=== PATIENT | male | born 1940 | race Caucasian/White ===

== ENCOUNTER → 2017-03-06 | Outpatient (CLI) | payer OTHER, MEDICARE ==
[~2017-03-06] MED LIST: ASCA500 PO; CLC100 PO; OXYC-57 PO; PRLSR20 PO; SIMV20TA2 PO; SUPPLEMENT PO
[2017-03-06 10:15] LABS: BASO % 0.3 %; BASO ABS # 0.03 K/uL (0-0.2); COMPLETE YES; EOS % 1.4 %; HEMATOCRIT 36.5 % (42-52); IG% 0.1 %; LYMPH % 17.3 %; LYMPH ABS # 1.49 K/uL (1.2-3.4); MEAN CELL VOLUME 95.1 fL (80-100); MEAN CORPUSCULAR HEMOGLOBIN 31.3 pg (25-34); MEAN CORPUSCULAR HGB CONC 32.9 g/dl (32-36); MEAN PLATELET VOLUME 9.3 fL (7.4-10.4); MONO % 10.3 %; NEUT % 70.6 %; PLATELET COUNT 298 K/uL (130-400); RED BLOOD COUNT 3.84 M/uL (4.7-6.1); WHITE BLOOD COUNT 8.61 K/uL (4.8-10.8)
[2017-03-06 10:39] LABS: ESTIMATED AVERAGE GLUCOSE 120 mg/dl; HA1C FLAG Normal (Normal)
[2017-03-06 10:43] LABS: ALT/SGPT 22 U/L (12-78); AST/SGOT 15 U/L (15-37); BLOOD UREA NITROGEN 17 mg/dl (7-18); BUN/CREATININE RATIO 17.5 (10-20); CALCIUM 8.8 mg/dl (8.5-10.1); CARBON DIOXIDE 31 mmol/L (21-32); CHLORIDE 109 mmol/L (98-107); CREATININE 0.97 mg/dl (0.60-1.40); GLUCOSE 111 mg/dl (70-99); POTASSIUM 4.3 mmol/L (3.5-5.1); SODIUM 142 mmol/L (136-145)
[2017-03-06 10:45] LABS: ALKALINE PHOSPHATASE 56 U/L (45-117); CHOLESTEROL 167 mg/dl (0-200); CHOLESTEROL/HDL RATIO 4.4; HDL CHOLESTEROL 38 mg/dl; LDL CHOLESTEROL CALCULATED 96 mg/dl; TRIGLYCERIDES 166 mg/dl (0-150); VERY LOW DENSITY LIPOPROT CALC 33 mg/dl
== END | disposition home or self-care (01) ==
LOC: C.LAB 09:30
PROVIDERS: ATTEND Internal Medicine Geriatric Medicine
DX: E78.5 Hyperlipidemia, unspecified (principal); R73.9 Hyperglycemia, unspecified; D64.9 Anemia, unspecified

== ENCOUNTER → 2017-06-11 | Outpatient (CLI) | payer OTHER, MEDICARE | END | disposition home or self-care (01) | LOC: C.LAB 10:45 | PROVIDERS: ATTEND Urology | DX: N40.1 Benign prostatic hyperplasia with lower urinary tract symptoms (principal); C67.9 Malignant neoplasm of bladder, unspecified ==

== ENCOUNTER 2025-02-17 14:42 | Inpatient (IN) ==
--- NOTE | 2025-02-17 15:06 | Emergency Department Note ---
Impression & Plan Witnessed seizure-like activity, Lung mass, Syncope ED Provider Note NAME: MITCHELL SIEGEL AGE: 84 SEX: M : 1940 ARRIVES VIA: Ambulance INFORMANT: Patient ED PROVIDER(S): Wilton Marcum MD CHIEF COMPLAINT: Witnessed seizure-like episode, referred. PLAN: Disposition: Admit MEDICAL DECISION MAKING: The patient is a 84-year-old gentleman with a past medical history of hypertension, hyperlipidemia, BPH, former smoking history who presents to the emergency department via EMS and then accompanied by family referred by his pulmonology office after having episode of seizure-like activity/syncope prior to arrival. The patient was being seen in the pulmonary clinic for further assessment of a lung mass seen on x-ray imaging. Patient recalls that he stood up from a chair to go have additional testing performed in felt extremely nauseated and lightheaded and then has no additional recollection. Patient did have repeated vital signs performed and the patient was relatively normotensive without tachycardia however he had regained consciousness at the time of these measurements. The patient had apparently had no state of confusion or postictal period following the event. Patient reports continued nausea at this time but denies headache, fevers, chills, cough congestion, chest pain, shortness of breath. On evaluation the patient is fatigued appearing but no distress, afebrile stable vital signs. He appears clinically dry. He exhibits no focal neurologic deficits. EKG without overt acute ischemia. CXR demonstrates 6.7 cm previously identified cavitary mass in the right lower lobe better characterized on CT imaging of the chest. WBC within normal limits without neutrophilia or left shift. H/H approximate to prior range of values. Platelets within normal limits. Chemistry without metabolic acidosis. BUN/creatinine 22, consistent with the patient's clinically dry appearance. LFTs unremarkable. CPK within normal limits. High-sensitivity troponin 4.5, within normal limits. Lipase is normal. Procalcitonin is undetectable. TSH within normal limits. CTA of the chest was negative for PE. Lung mass further characterized as solid necrotizing mass in the right lower lobe favoring squamous cell carcinoma. Infectious or inflammatory process possible but considered less likely. CT of the head, CTA of the head and neck and CT of the pelvis negative for acute abnormalities. Patient did report feeling improved following IV hydration, IV famotidine, Zofran and Phenergan. Findings reviewed with the patient and family at the bedside. They did agree with plan for admission for further management. Case was discussed with MILENA Alba hospitalist, who will evaluate the patient for admission. Further management per admitting team including Keppra and MRI imaging. Triage Nursing notes reviewed and agree them. Prior/external medical records reviewed Vital Signs: reviewed Differential diagnosis: Epilepsy, infection, hypoglycemia, electrolyte abnormalities, cardiac sources, intracerebral event, trauma, toxicologic, neurologic, syncope, as well as other pathologies. ER treatment provided: See below. Diagnostics interpreted by me: ECG: Sinus bradycardia, 50 bpm, no ectopy, no overt ST elevation or depression, QTc 451, QRS 90. Cardiac Monitoring: An order for continuous cardiac monitoring was placed and demonstrated sinus bradycardia, 50 bpm, no ectopy. Laboratory studies: See below Imaging studies: See below Consultation(s): Case was discussed with MILENA Alba hospitalist, who will evaluate the patient for admission. HPI: Per MDM. ROS: See above HPI for pertinent positives & negatives. A total of 10 systems reviewed and were otherwise negative. VITALS:See Below PHYSICAL EXAMINATION: GENERAL: Awake, alert, fatigued-appearing, in no distress HENT: Normocephalic, atraumatic. Oropharynx with dry mucous membranes and otherwise unremarkable. EYES: Normal conjunctiva. Sclera non-icteric. EOMI. No nystamgus. PEARRL. NECK: Supple. No nuchal rigidity. FROM. No JVD. RESPIRATORY: Clear to auscultation. CARDIAC: Regular rate, normal rhythm. Extremities warm and well perfused. Pulses equal. ABDOMEN: Soft, non-distended. No tenderness to palpation. No rebound or guarding. No masses. MUSCULOSKELETAL: Chest examination reveals no tenderness. The back is symmetrical on inspection without obvious abnormality. There is no CVA tenderness to palpation. No joint edema. LOWER EXTREMITIES: Calves are equal size bilaterally and non-tender. No edema. No discoloration. NEURO: Cranial nerves II-XII grossly intact. 5/5 strength and SILT x 4 extremities. SKIN: No rash or jaundice noted. Wilton Marcum MD Past Med/Surg History Problem List (Updated 02/17/25 @ 23:04 by Wilton Marcum MD) Syncope (Acute) Witnessed seizure-like activity (Acute) Seizure New onset seizure Ex-smoker Lung mass (Acute) Pre-op testing Post-nasal drip Hemoptysis, unspecified Rhinitis JAYLAN (generalized anxiety disorder) Normocytic anemia Mild cognitive disorder Elevated hemoglobin A1c Hypertension (Chronic) Dyslipidemia (Chronic) Enlarged prostate with lower urinary tract symptoms (LUTS) (Acute) Gastroesophageal reflux disease (Chronic) Chronic osteoarthritis (Chronic) Medical History Melanoma in situ Followed by [facility] Tubular adenoma of colon 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 No Urology f/u at this time. Family history of melanoma Decreased hearing has hearing aids, does not wear them Surgical History H/O colonoscopy 09/2022 Repeat 3 yrs History of hernia surgery History of bladder surgery (~1985) Family History Unknown Skin cancer Heart disease Diabetes Sister Breast cancer Lung cancer Denies family history of Ovarian cancer Prostate cancer Myocardial infarction Colorectal cancer Stroke Social History Smoking Status: Former smoker Tobacco Type: Cigarettes Age Started Using Tobacco: 16; Age Quit Using Tobacco: 81; Cigarettes Per Day: 1-2, but "not every day"; Second Hand Exposure: No (years ago); Do You Dip or Chew Tobacco: No; Hx Alcohol Use: No Hx Substance Use: No Preferred Language: Sami Communication Ability: Effective Visual Impairment: Limited Hearing Ability: Hard of Hearing Brass Buffer Required: No Beliefs That Will Affect Care: None marital status: Current Living Situation: Spouse current occupational status: retired 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 How many Children do You have: 4 Feels Safe at Home: Yes Childhood Exposure to Second-Hand Smoke: Yes (thinks father did ) Diet: regular caffeine: Yes (coffee) during the past year weight has: remained stable Dental Care, Regularly: No Physical Activity Frequency: Does not Exercise Seatbelt Use: always Sunscreen Use: No Assistive Devices: Denture - Upper, Denture - Lower and Glasses Allergies Allergies Allergy/AdvReac Type Severity Reaction Status Date / Time amoxicillin [From Augmentin] AdvReac severe Verified 02/17/25 18:13 nausea clavulanic acid AdvReac severe Verified 02/17/25 18:13 [From Augmentin] nausea Home Meds Home Medications Medication Instructions Recorded Confirmed vit C 250 mg-vit E 90 mg-zinc 40 1 tab PO BID 03/22/19 02/17/25 mg-copper 1 [id number]-moskss capsule (PreserVision AREDS-2) acetaminophen 500 mg tablet 500 mg PO Q6H PRN Pain 08/24/22 02/17/25 lactobacillus combination no.4 15 15,000 mmu cells PO DAILY 02/17/25 02/17/25 billion cell capsule omeprazole 20 mg capsule,delayed 40 mg PO DAILY 02/17/25 02/17/25 release Previous Rx's Medication Instructions Recorded [id number] acid 200 1 tab PO BID #30 tabs 09/20/23 mcg-lycopene 5 mg-boron 250 mcg tablet (Bladder 2.2) amlodipine 10 mg tablet 10 mg PO QAM #90 tabs 03/17/24 atorvastatin 10 mg tablet 10 mg PO HS #90 tabs 03/17/24 atenolol 25 mg tablet 25 mg PO DAILY #30 tabs 01/15/25 ipratropium bromide 42 mcg (0.06 2 spray intranasal TID #15 mL 01/22/25 %) nasal spray Results & Data (ED) Vital Signs Vital Signs - 24 hr 02/17/25 14:57 02/17/25 15:36 02/17/25 16:12 Temperature 36.4 C L Temperature Source Axillary Pulse Rate 56 L 60 69 Pulse Rate [Left Apical] Pulse Rate from SpO2 Sensor 55 L 66 Respiratory Rate 18 15 18 Respiratory Effort / Characteristics Non-Labored Spontaneous Respiratory Depth Normal Respiratory Pattern Regular Blood Pressure 129/66 125/59 L 122/57 L Blood Pressure [Right Arm] Blood Pressure Mean 87 81 78 Blood Pressure Mean [Right Arm] Blood Pressure Position Lying Blood Pressure Position [Right Arm] Pulse Oximetry 96 95 100 Oxygen Delivery Method Room Air Sepsis Recent Fever Within 48 Hours No Sepsis New/Unexplained Change in Mental Status N/A Sepsis Action Taken by Nursing No Action Required 02/17/25 16:14 02/17/25 17:00 02/17/25 17:01 Temperature Temperature Source Pulse Rate 59 L Pulse Rate [Left Apical] 63 Pulse Rate from SpO2 Sensor 57 L Respiratory Rate 17 15 Respiratory Effort / Characteristics Non-Labored Spontaneous Respiratory Depth Normal Respiratory Pattern Regular Blood Pressure 124/55 L Blood Pressure [Right Arm] 122/57 L 124/55 L Blood Pressure Mean 78 Blood Pressure Mean [Right Arm] 78 78 Blood Pressure Position Blood Pressure Position [Right Arm] Lying Pulse Oximetry 98 98 Oxygen Delivery Method Room Air Sepsis Recent Fever Within 48 Hours Sepsis New/Unexplained Change in Mental Status Sepsis Action Taken by Nursing 02/17/25 17:33 02/17/25 17:47 02/17/25 18:03 Temperature Temperature Source Pulse Rate 52 L 53 L 50 L Pulse Rate [Left Apical] Pulse Rate from SpO2 Sensor 51 L 50 L Respiratory Rate 15 14 Respiratory Effort / Characteristics Respiratory Depth Respiratory Pattern Blood Pressure 118/58 L 120/55 L Blood Pressure [Right Arm] Blood Pressure Mean 78 76 Blood Pressure Mean [Right Arm] Blood Pressure Position Blood Pressure Position [Right Arm] Pulse Oximetry 98 98 Oxygen Delivery Method Sepsis Recent Fever Within 48 Hours Sepsis New/Unexplained Change in Mental Status Sepsis Action Taken by Nursing Laboratory Data Attestation: I reviewed the patient's lab results. 02/17/25 14:53 02/17/25 14:53 Lab Results 02/17/25 Range/Units 14:53 WBC 9.94 (4.8-10.8) K/ul RBC 3.16 L (4.70-6.10) M/uL Hgb 10.1 L (14.0-18.0) g/dl Hct 30.2 L (42.0-52.0) % MCV 95.6 (80.0-100.0) fL MCH 32.0 (25.0-34.0) pg MCHC 33.4 (32.0-36.0) g/dL RDW Std Deviation 46.3 (36.4-46.3) fL RDW Coeff of Sidra 13.3 (11.5-14.5) % Plt Count 284 (130-400) K/uL MPV 9.4 (9.4-12.4) fL Immature Gran % (Auto) 0.4 % Neut % (Auto) 64.6 % Lymph % (Auto) 23.4 % [place] % (Auto) 9.6 % Eos % (Auto) 1.4 % Baso % (Auto) 0.6 % Neut # (Auto) 6.42 (1.40-6.50) K/uL Lymph # (Auto) 2.33 (1.20-3.40) K/uL [place] # (Auto) 0.95 H (0.11-0.59) K/uL Eos # (Auto) 0.14 (0.00-0.50) K/uL Baso # (Auto) 0.06 (0.00-0.20) K/uL Immature Gran # (Auto) 0.04 (0.01-0.20) K/uL PT 10.5 (9.0-12.0) Seconds INR 1.0 (0.9-1.1) Sodium 139 (136-145) mmol/L Potassium 3.9 (3.5-5.1) mmol/L Chloride 109 H (98-107) mmol/L Carbon Dioxide 24 (21-32) mmol/L Anion Gap 6 (3-11) BUN 23 (6-23) mg/dl Creatinine 1.03 (0.6-1.4) mg/dl Est Cr Clr Drug Dosing 51.7 ml/min eGFR 71.63 BUN/Creatinine Ratio 22.3 H (10-20) Glucose 146 H (70-99(Fasting)) mg/dl Calcium 8.7 (8.6-10.3) mg/dl Magnesium 2.1 (1.7-2.4) mg/dl Total Bilirubin 0.6 (0.2-1.0) mg/dl AST 23 (13-39) U/L ALT 13 (7-52) U/L Alkaline Phosphatase 45 (34-104) U/L Total Creatine Kinase 46 (30-223) U/L Troponin I High Sens 4.5 (0-20) pg/ml Total Protein 6.8 (6.0-8.3) gm/dl Albumin 4.0 (3.4-5.0) gm/dl Globulin 2.8 (2.5-4.0) gm/dl Albumin/Globulin Ratio 1.4 (0.9-2) Lipase 19 (11-82) U/L Procalcitonin < 0.02 (0-0.5) ng/ml TSH 1.610 (0.300-4.500) uIu/ml Administered Medications Atorvastatin Calcium (Atorvastatin 10 Mg Tab) 10 mg PO HS MELISA Stop: 03/19/25 21:36 Last Admin: 02/17/25 22:42 Dose: 10 mg Documented By: TUNDE Ipratropium [place] (Ipratropium [place] Nasal [place] 0.06% 15ml) 2 sprays SHAHID TID MELISA Stop: 03/19/25 21:36 Last Admin: 02/17/25 22:43 Dose: 2 sprays Documented By: TUNDE Levetiracetam (Levetiracetam 500 Mg/5 Ml Vial) 500 mg IV Q12H MELISA Stop: 03/19/25 17:44 Last Admin: 02/17/25 18:40 Dose: 500 mg Documented By: SEDA Multivitamins/Minerals (Cerovite Adv Formula Tab) 1 tab PO BID MELISA Stop: 03/19/25 21:36 Last Admin: 02/17/25 22:42 Dose: 1 tab Documented By: TUNDE Discontinued Medications Gadobutrol (Gadobutrol 65ml Vial) 7.5 ml IV ONCE ONE Stop: 02/17/25 19:16 Last Admin: 02/17/25 19:15 Dose: 7.5 ml Documented By: YAMILE Sodium Chloride (Nss) 500 mls @ 999 mls/hr IV .Q31M ONE Stop: 02/17/25 15:23 Last Infusion: 02/17/25 16:59 Dose: Infused Documented By: Admin: 02/17/25 15:23 Dose: 999 mls/hr Documented By: SEDA Famotidine (Pepcid 20mg Iv Push) 20 mg in 5 mls @ 2.5 mls/min IV NOW STA Stop: 02/17/25 15:02 Last Admin: 02/17/25 15:23 Dose: 2.5 mls/min Documented By: SEDA Sodium Chloride (Nss) 500 mls @ 999 mls/hr IV .Q31M ONE Stop: 02/17/25 15:31 Last Infusion: 02/17/25 16:59 Dose: Infused Documented By: Admin: 02/17/25 15:23 Dose: 999 mls/hr Documented By: SEDA Promethazine HCl (Phenergan) 12.5 mg in 50.5 mls @ 202 mls/hr IV NOW STA Stop: 02/17/25 16:35 Last Infusion: 02/17/25 16:59 Dose: Infused Documented By: Admin: 02/17/25 16:38 Dose: 202 mls/hr Documented By: SEDA Ioversol (Optiray 320 125ml) 115 ml IV ONCE ONE Stop: 02/17/25 16:00 Last Admin: 02/17/25 15:59 Dose: 115 ml Documented By: AKILAH Ondansetron HCl (Ondansetron Inj 2 Mg/Ml 2 Ml Vial) 4 mg IV NOW STA Stop: 02/17/25 15:02 Last Admin: 02/17/25 15:23 Dose: 4 mg Documented By: SEDA Imaging Data Radiologist's Impression: Chest CTA 02/17/25 14:49 EXAMINATION: CT angio chest PE CLINICAL HISTORY: Lung mass, nausea, syncope PRIORS: None TECHNIQUE: Contiguous axial images were obtained through the chest with the use of intravenous contrast. Sagittal and coronal reformations are supplied. FINDINGS: Lung volumes are diminished. A mass is present in the right lower lobe, subpleural, approximately round in shape with well-defined borders. This measures 5.7 cm x 5.2 cm with surrounding groundglass attenuation. The contents of the mass are solid with heterogeneous appearance and scattered areas of gas. Mild diffuse increased reticular markings in the subpleural regions. Moderate centrilobular pulmonary emphysema. No additional mass. No airspace consolidation. No mediastinal adenopathy. Mildly prominent nonpathologically enlarged right hilar lymph nodes present measuring 0.7 cm in short axis. No axillary or subpectoral adenopathy. The pulmonary arteries are well opacified. No central or peripheral pulmonary embolism. No pleural or pericardial effusion. Heart size mildly enlarged. Moderate atherosclerotic disease identified. In bone windows, moderate degenerative change throughout the thoracic spine, allowing for PE technique. No acute fracture or suspicious osseous abnormality. IMPRESSION: Solid necrotizing mass in the right lower lobe measuring up to 5.7 cm. The presence of necrosis favors squamous cell carcinoma. An infectious or inflammatory process is possible although considered less likely. Electronically signed by Lynn De La Rosa 02-17-2025 4:37 PM Chest X-Ray 02/17/25 14:49 Clinical History: Chest pain Technique: 2 frontal views of the chest were obtained Comparison is made to the chest CT obtained today Findings: There is an approximately 6.7 cm cavitary mass in the right lower lobe with surrounding alveolar infiltrate. The heart size is within normal limits. No pleural effusion or pneumothorax is seen. No fracture is noted. No foreign body is seen Impression: 6.7 cm cavitary mass or lung abscess in the right lower lobe, better evaluated by today's CT examination ACT 112: Positive. There are findings on this exam that require communication between the performing entity and the patient following Patient Test Result Information Act ([place] ACT 112) guidelines. Electronically signed by Wesley Reina 02-17-2025 5:[address] 02/17/25 14:49 EXAMINATION: Head CT without CLINICAL HISTORY: Syncope versus seizure lung mass PRIORS: None TECHNIQUE: Contiguous axial images were obtained through the head without the use of intravenous contrast. Sagittal and coronal reformations are supplied. FINDINGS: Mild diffuse parenchymal volume loss noted. Periventricular lucency present bilaterally in the deep white matter. Thompson-white differentiation is preserved. No edema or midline shift. No intra-axial or extra-axial hemorrhage. Ventricles are normal in size and configuration. Brainstem and cerebellum have a normal appearance. Calvarium unremarkable. Paranasal sinuses and mastoid air cells are well-pneumatized. Globes are intact. No retrobulbar abnormality. IMPRESSION: No CT evidence of an acute intracranial abnormality. Electronically signed by Lynn De La Rosa 02-17-2025 4:28 PM Head CTA 02/17/25 14:49 EXAM: CTA head with CLINICAL HISTORY: Syncope versus seizure, lung mass TECHNIQUE: Contiguous CTA axial images were obtained through the head after the administration of intravenous contrast. Sagittal and coronal reformations are supplied. PRIORS: Noncontrast head today FINDINGS: Dental amalgam creates beam hardening artifact. This diminishes image quality. The vertebral arteries form the basilar artery at the skull base. [place] of [place] is patent. No thrombus or hemodynamically significant stenosis. No aneurysmal dilatation or bermudez aneurysm. No enhancing mass in the brain. IMPRESSION: No CTA evidence of an acute vascular abnormality. Electronically signed by Lynn De La Rosa 02-17-2025 4:28 PM Neck CTA 02/17/25 14:49 EXAM: CT angio neck with con CLINICAL HISTORY: Syncope versus seizure, lung mass TECHNIQUE: Contiguous CTA axial images were obtained through the neck with the administration of intravenous contrast. Sagittal and coronal reformations are supplied. MIPS are supplied. COMPARISON: None FINDINGS: The left-sided aortic arch noted with moderate atherosclerotic disease. Appropriate takeoff of the 3 great vessels noted with no hemodynamically significant stenosis. The bilateral common, internal and external iliac arteries are patent with no thrombus, hemodynamically significant stenosis or evidence of dissection. The bilateral internal carotid arteries enter at the petrous portion of the skull base normally. Very mild atherosclerotic plaque in the left carotid artery bulb. The vertebral arteries are well opacified, both contributing to the basilar artery at the brainstem. No hemodynamically significant stenosis. No enhancing mass visualized in the lower brain or neck. Electronically signed by Lynn De La Rosa 02-17-2025 4:31 PM Abdomen/Pelvis CT 02/17/25 15:02 EXAMINATION: Abdomen and pelvis CT with CLINICAL HISTORY: Lung mass, nausea, syncope PRIORS: None TECHNIQUE: Contiguous axial images were obtained through the abdomen and pelvis with the use of intravenous contrast. Sagittal and coronal reformations are supplied. FINDINGS: Chest CT is dictated under separate heading. Necrotic mass present in the right lung lower lobe. The liver is mildly enlarged measuring 18.3 cm with homogeneous enhancement. Focal hypoattenuation measuring 2 mm present in the right lobe. The portal vein, gallbladder, pancreas, spleen, under distended stomach, adrenals, aorta and IVC are morphologically unremarkable. Advanced atherosclerotic disease of the abdominal aorta noted. The infrarenal aorta is fusiform or tortuous in shape. Kidneys enhance symmetrically. No adrenal mass. No adenopathy, extraluminal gas or free fluid. Moderate to severe diverticulosis of the descending and sigmoid colon without pericolonic inflammatory change. Large amount of formed stool present in the colon. Prostate not enlarged. Urinary bladder distended and morphologically unremarkable. Moderate inguinal hernias present containing fat. Appendix is normal. No dilated loops of bowel or bowel wall thickening. In bone windows, moderate osseous demineralization noted. Moderate to advanced degenerative change throughout the lumbar spine. No acute or suspicious osseous abnormality. IMPRESSION: 1. No CT evidence of metastatic disease in the abdomen or pelvis. No adrenal mass. 2. No acute abdominal or pelvic abnormality. 3. Moderate to severe diverticulosis with no CT features of diverticulitis. 4. Hepatomegaly Electronically signed by Lynn De La Rosa 02-17-2025 4:41 PM Discharge Plan Visit Data Chief Complaint: Seizure Stated Complaint: SEIZURE ED Provider: Wilton Marcum Discharge Problem: Witnessed seizure-like activity, Lung mass, Syncope Patient Disposition: Admitted As Inpatient Condition: Serious Discharge Instructions Interventions: ED Discharge Assessment Last Done: 02/17/25 21:38 Discharge Problem: Syncope Qualifiers: Syncope type: unspecified Qualified Code(s): R55 - Syncope and collapse
[2025-02-17 15:15] LABS: Hematocrit (blood only) 30.2 % (42.0-52.0); Hemoglobin 10.1 g/dl (14.0-18.0); Immature Granulocytes # (auto) 0.04 K/uL (0.01-0.20); Immature Granulocytes % (auto) 0.4 %; Mean Corpuscular Hemoglobin 32.0 pg (25.0-34.0); Mean Corpuscular Volume 95.6 fL (80.0-100.0); Platelet Count 284 K/uL (130-400); RDW Standard Deviation 46.3 fL (36.4-46.3); Red Blood Count 3.16 M/uL (4.70-6.10); White Blood Count 9.94 K/ul (4.8-10.8)
[2025-02-17] MEDS: SODIUM CHLORIDE 0.9% 500 ML IV ONE ×2 (15:23)
[2025-02-17] MEDS: FAMOTIDINE 20MG IV PUSH 20 MG/5 ML SYR IV STA (15:23)
[2025-02-17] MEDS: ONDANSETRON INJ 2 MG/ML 2 ML VIAL IV STA (15:23)
[2025-02-17 15:31] LABS: Alanine Aminotransferase 13.0 U/L (7-52); Albumin Globulin Ratio 1.4 (0.9-2); Alkaline Phosphatase 45.0 U/L (34-104); Anion Gap 6.0 (3-11); Bilirubin,Total 0.6 mg/dl (0.2-1.0); Blood Urea Nitrogen 23.0 mg/dl (6-23); Calcium 8.7 mg/dl (8.6-10.3); Carbon Dioxide 24.0 mmol/L (21-32); Chloride 109.0 mmol/L (98-107); Creatine Kinase 46.0 U/L (30-223); Creatinine Clr Calc Pharmacy 51.7 ml/min; Globulin 2.8 gm/dl (2.5-4.0); Glucose 146.0 mg/dl (70-99(Fasting)); Lipase 19.0 U/L (11-82); Magnesium 2.1 mg/dl (1.7-2.4); Potassium 3.9 mmol/L (3.5-5.1); Sodium 139.0 mmol/L (136-145); Total Protein 6.8 gm/dl (6.0-8.3)
[2025-02-17 15:41] LABS: INR 1.0 (0.9-1.1); Prothrombin Time 10.5 Seconds (9.0-12.0)
[2025-02-17 15:46] LABS: Thyroid Stimulating Hormone 1.61 uIu/ml (0.300-4.500)
[2025-02-17] MEDS: OPTIRAY 320 125ml IV ONE (15:59)
--- NOTE | 2025-02-17 16:29 | CT Scan Report ---
EXAM: CTA head with CLINICAL HISTORY: Syncope versus seizure, lung mass TECHNIQUE: Contiguous CTA axial images were obtained through the head after the administration of intravenous contrast. Sagittal and coronal reformations are supplied. PRIORS: Noncontrast head today FINDINGS: Dental amalgam creates beam hardening artifact. This diminishes image quality. The vertebral arteries form the basilar artery at the skull base. [place] of [place] is patent. No thrombus or hemodynamically significant stenosis. No aneurysmal dilatation or bermudez aneurysm. No enhancing mass in the brain. IMPRESSION: No CTA evidence of an acute vascular abnormality. Electronically signed by Lynn De La Rosa 02-17-2025 4:28 PM
--- NOTE | 2025-02-17 16:29 | CT Scan Report ---
EXAMINATION: Head CT without CLINICAL HISTORY: Syncope versus seizure lung mass PRIORS: None TECHNIQUE: Contiguous axial images were obtained through the head without the use of intravenous contrast. Sagittal and coronal reformations are supplied. FINDINGS: Mild diffuse parenchymal volume loss noted. Periventricular lucency present bilaterally in the deep white matter. Thompson-white differentiation is preserved. No edema or midline shift. No intra-axial or extra-axial hemorrhage. Ventricles are normal in size and configuration. Brainstem and cerebellum have a normal appearance. Calvarium unremarkable. Paranasal sinuses and mastoid air cells are well-pneumatized. Globes are intact. No retrobulbar abnormality. IMPRESSION: No CT evidence of an acute intracranial abnormality. Electronically signed by Lynn De La Rosa 02-17-2025 4:28 PM
--- NOTE | 2025-02-17 16:33 | CT Scan Report ---
EXAM: CT angio neck with con CLINICAL HISTORY: Syncope versus seizure, lung mass TECHNIQUE: Contiguous CTA axial images were obtained through the neck with the administration of intravenous contrast. Sagittal and coronal reformations are supplied. MIPS are supplied. COMPARISON: None FINDINGS: The left-sided aortic arch noted with moderate atherosclerotic disease. Appropriate takeoff of the 3 great vessels noted with no hemodynamically significant stenosis. The bilateral common, internal and external iliac arteries are patent with no thrombus, hemodynamically significant stenosis or evidence of dissection. The bilateral internal carotid arteries enter at the petrous portion of the skull base normally. Very mild atherosclerotic plaque in the left carotid artery bulb. The vertebral arteries are well opacified, both contributing to the basilar artery at the brainstem. No hemodynamically significant stenosis. No enhancing mass visualized in the lower brain or neck. Electronically signed by Lynn De La Rosa 02-17-2025 4:31 PM
[2025-02-17] MEDS: PROMETHAZINE 12.5 MG/50.5 ML BAG IV STA (16:38)
--- NOTE | 2025-02-17 16:38 | CT Scan Report ---
EXAMINATION: CT angio chest PE CLINICAL HISTORY: Lung mass, nausea, syncope PRIORS: None TECHNIQUE: Contiguous axial images were obtained through the chest with the use of intravenous contrast. Sagittal and coronal reformations are supplied. FINDINGS: Lung volumes are diminished. A mass is present in the right lower lobe, subpleural, approximately round in shape with well-defined borders. This measures 5.7 cm x 5.2 cm with surrounding groundglass attenuation. The contents of the mass are solid with heterogeneous appearance and scattered areas of gas. Mild diffuse increased reticular markings in the subpleural regions. Moderate centrilobular pulmonary emphysema. No additional mass. No airspace consolidation. No mediastinal adenopathy. Mildly prominent nonpathologically enlarged right hilar lymph nodes present measuring 0.7 cm in short axis. No axillary or subpectoral adenopathy. The pulmonary arteries are well opacified. No central or peripheral pulmonary embolism. No pleural or pericardial effusion. Heart size mildly enlarged. Moderate atherosclerotic disease identified. In bone windows, moderate degenerative change throughout the thoracic spine, allowing for PE technique. No acute fracture or suspicious osseous abnormality. IMPRESSION: Solid necrotizing mass in the right lower lobe measuring up to 5.7 cm. The presence of necrosis favors squamous cell carcinoma. An infectious or inflammatory process is possible although considered less likely. Electronically signed by Lynn De La Rosa 02-17-2025 4:37 PM
--- NOTE | 2025-02-17 16:42 | CT Scan Report ---
EXAMINATION: Abdomen and pelvis CT with CLINICAL HISTORY: Lung mass, nausea, syncope PRIORS: None TECHNIQUE: Contiguous axial images were obtained through the abdomen and pelvis with the use of intravenous contrast. Sagittal and coronal reformations are supplied. FINDINGS: Chest CT is dictated under separate heading. Necrotic mass present in the right lung lower lobe. The liver is mildly enlarged measuring 18.3 cm with homogeneous enhancement. Focal hypoattenuation measuring 2 mm present in the right lobe. The portal vein, gallbladder, pancreas, spleen, under distended stomach, adrenals, aorta and IVC are morphologically unremarkable. Advanced atherosclerotic disease of the abdominal aorta noted. The infrarenal aorta is fusiform or tortuous in shape. Kidneys enhance symmetrically. No adrenal mass. No adenopathy, extraluminal gas or free fluid. Moderate to severe diverticulosis of the descending and sigmoid colon without pericolonic inflammatory change. Large amount of formed stool present in the colon. Prostate not enlarged. Urinary bladder distended and morphologically unremarkable. Moderate inguinal hernias present containing fat. Appendix is normal. No dilated loops of bowel or bowel wall thickening. In bone windows, moderate osseous demineralization noted. Moderate to advanced degenerative change throughout the lumbar spine. No acute or suspicious osseous abnormality. IMPRESSION: 1. No CT evidence of metastatic disease in the abdomen or pelvis. No adrenal mass. 2. No acute abdominal or pelvic abnormality. 3. Moderate to severe diverticulosis with no CT features of diverticulitis. 4. Hepatomegaly Electronically signed by Lynn De La Rosa 02-17-2025 4:41 PM
--- NOTE | 2025-02-17 17:43 | XRay Report ---
Clinical History: Chest pain Technique: 2 frontal views of the chest were obtained Comparison is made to the chest CT obtained today Findings: There is an approximately 6.7 cm cavitary mass in the right lower lobe with surrounding alveolar infiltrate. The heart size is within normal limits. No pleural effusion or pneumothorax is seen. No fracture is noted. No foreign body is seen Impression: 6.7 cm cavitary mass or lung abscess in the right lower lobe, better evaluated by today's CT examination ACT 112: Positive. There are findings on this exam that require communication between the performing entity and the patient following Patient Test Result Information Act ([place] ACT 112) guidelines. Electronically signed by Wesley Reina 02-17-2025 5:42 PM
[2025-02-17] MEDS ORDERED: ONDANSETRON INJ 2 MG/ML 2 ML VIAL IV PRN (18:23)
--- NOTE | 2025-02-17 18:40 | History & Physical Report ---
Date of Service February 17, 2025 Assessment & Plan (1) Seizure: Plan Linus Phillips is a 84 yo male with PMH of smoking, newly found lung mass, bladder cancer (2009), GERD, hypertension. he's been having runny nose, sinus pressure and went to ENT. however, there was concern he having hemoptysis and was referred to pulmonary, Dr. Kevin Moore. CXR show RLL lung mass Dr. Moore was plan for bronchoscopy +/- EUBS to investigate the mass, and order coagulation studies however, at 2pm on sunday (02/17), patient has witness seizure episode (twitching, bladder incontinence, pacing around the hallway) and brought here for evaluation his CTA chest found necrotizing lung mass in the RLL, CTA head and neck negative for large vessel thrombosis he's started on keppra IV and need brain MRI w/wo contrast to rule out brain metastasis. 1. seizure episode 2. newly found lung mass in RLL (5.6cm) 3. hx of bladder cancer 4. amoxicllin allergy 5. hypertension 6. GERD 7. HSTF 1. seizure episode witness on 02/17 at lung doctor office keppra IV BID, brain MRI w/wo contrast to r/o metastasis 2. newly found lung mass f/u on PT/aPTT and INR level. pulmonary was plan for bronchoscopy +/- EUBS for evaluation monitor for hypothermia and high WBC to r/o superimpose PNA. 3. hx of bladder cancer, s/p treatment in 2009 4. hypertension-atenolol 25mg daily and amlodpine 10mg daily 5. HLD, he's on lipitor 10mg qHS 6. eye condition, he's on preservison AREDS-2) 1 tab BID 7. GERD- omeprazole 20mg daily DVT prophylaxis, heparin starting tomorrow afternoon History of Present Illness Chief Complaint: seizure episode at 2pm (pulmonary office) newly found lung mass hx of bladder cancer Primary Care Provider: Brady Romero, Mr. Linus Phillips is a 84 yo male with PMH of smoking, bladder cancer (2009), GERD, he's been having epitaxis and sinus pressure and was following with ENT there was concern about hemoptysis and his CXR show 6cm in the RLL. he's went too pulmonary office, and was plan for cTA chest, PT, INR and plan for robotic navigational bronchoscopy +/o EBUS however, when he was at lung doctor today. at 2pm, patient was noted to have seizure episode with b/l twitching, inattention, and was having bladder incontinence. he's was brought to the ED and CTA head and neck negative for large vessel infarct his CTA chest found 5.7 solid necrotizing right lower lobe. he's receive keppra and needed medicine admission for seizure evaluation, brain metastasis rule out. he's need ongoing stabilization for hypothermia he is full code his designate his as decision maker Allergies Allergy/AdvReac Type Severity Reaction Status Date / Time amoxicillin [From Augmentin] AdvReac severe Verified 02/17/25 18:13 nausea clavulanic acid AdvReac severe Verified 02/17/25 18:13 [From Augmentin] nausea Home Medications Medication Instructions Recorded Confirmed Type vit C 250 mg-vit E 90 mg-zinc 40 1 tab PO BID 03/22/19 02/17/25 History mg-copper 1 ao-pvldob-hmoqdf capsule (PreserVision AREDS-2) acetaminophen 500 mg tablet 500 mg PO Q6H PRN Pain 08/24/22 02/17/25 History cmvshqdm-mohc-ztqoi acid 200 1 tab PO BID #30 tabs 09/20/23 02/17/25 Rx mcg-lycopene 5 mg-boron 250 mcg tablet (Bladder 2.2) amlodipine 10 mg tablet 10 mg PO QAM #90 tabs 03/17/24 02/17/25 Rx atorvastatin 10 mg tablet 10 mg PO HS #90 tabs 03/17/24 02/17/25 Rx atenolol 25 mg tablet 25 mg PO DAILY #30 tabs 01/15/25 02/17/25 Rx ipratropium bromide 42 mcg (0.06 2 spray intranasal TID #15 mL 01/22/25 02/17/25 Rx %) nasal spray lactobacillus combination no.4 15 15,000 mmu cells PO DAILY 02/17/25 02/17/25 History billion cell capsule omeprazole 20 mg capsule,delayed 40 mg PO DAILY 02/17/25 02/17/25 History release Past Med/Surg History Problem List (Updated 02/17/25 @ 18:41 by Mietsh Toth DO) Seizure New onset seizure Ex-smoker Lung mass Pre-op testing Post-nasal drip Hemoptysis, unspecified Rhinitis JAYLAN (generalized anxiety disorder) Normocytic anemia Mild cognitive disorder Elevated hemoglobin A1c Hypertension (Chronic) Dyslipidemia (Chronic) Enlarged prostate with lower urinary tract symptoms (LUTS) (Acute) Gastroesophageal reflux disease (Chronic) Chronic osteoarthritis (Chronic) Medical History Decreased hearing Family history of melanoma Melanoma in situ Transitional cell carcinoma of bladder Tubular adenoma of colon Surgical History H/O colonoscopy History of bladder surgery (~1985) History of hernia surgery Family History Unknown Skin cancer Heart disease Diabetes Sister Breast cancer Lung cancer Denies family history of Ovarian cancer Prostate cancer Myocardial infarction Colorectal cancer Stroke Social History Smoking Status: Former smoker Tobacco Type: Cigarettes Age Started Using Tobacco: 16; Age Quit Using Tobacco: 81; Cigarettes Per Day: 1-2, but "not every day"; Second Hand Exposure: No (years ago); Do You Dip or Chew Tobacco: No; Hx Alcohol Use: No Hx Substance Use: No Preferred Language: Cymro Communication Ability: Effective Visual Impairment: Limited Hearing Ability: Hard of Hearing [employer] Collision Estimator Required: No Beliefs That Will Affect Care: None marital status: Current Living Situation: Spouse current occupational status: retired 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 How many Children do You have: 4 Feels Safe at Home: Yes Childhood Exposure to Second-Hand Smoke: Yes (thinks father did ) Diet: regular caffeine: Yes (coffee) during the past year weight has: remained stable Dental Care, Regularly: No Physical Activity Frequency: Does not Exercise Seatbelt Use: always Sunscreen Use: No Assistive Devices: Denture - Upper, Denture - Lower and Glasses Review of Systems Review of Systems: Constitutional: no fever; chill ENT/Mouth: + for runny nose; sinus pressure; + for epitaxis Cardiovascular: No Chest Pain, No SOB, No PND, No Dyspnea on Exertion, No Orthopnea, No Claudication, No Edema, No Palpitations Respiratory: + for hemoptysis; no wheezing; + for Fhx of lung cancer Gastrointestinal: + for nausea sensation; no abdominal pain; no diarrhea. Genitourinary: + for bladder cancer Neuro: + for seizure episode; + involuntary arm twitching; negative for recent headache; no numbness; no tingling Psych: No Anxiety/Panic, No Depression, No Insomnia, No Personality Changes, No Delusion Physical Exam Physical Exam: VITALS: Reviewed. WEIGHT/BMI reviewed. GEN: Healthy appearing, well-developed, NAD. PSYCH: Good Judgment. AOx3. -Head: NC/AT; -Eyes: PERRL, EOMI. No discharge or redn ess; Neuro: CN 2-12 grossly intact; AAox3; 5/5 strength in upper and lower extremity. following command. normal sensation to soft touch; able to name object NECK: no carotid bruit CV: RRR, no m/r/g. LUNGS: CTAB, no w/r/c. ABD: Soft, NT/ND, NBS, no masses or organomegaly. : no CVA tenderness MSK: No deformities, Normal gait. EXT: No clubbing, cyanosis, or edema. Results & Data Results & Data Vital Signs (Past 12 Hours) Vital Signs Temp Pulse Pulse Resp BP BP Pulse Ox 02/17/25 17:47 53 L 02/17/25 17:01 124/55 L 02/17/25 16:14 63 17 122/57 L 98 02/17/25 16:12 69 18 122/57 L 100 02/17/25 15:36 60 15 125/59 L 95 02/17/25 14:57 36.4 C L 56 L 18 129/66 96 O2 Del Method 02/17/25 17:47 02/17/25 17:01 02/17/25 16:14 Room Air 02/17/25 16:12 02/17/25 15:36 02/17/25 14:57 Room Air Laboratory Results Laboratory Results - last 72 hr 02/17/25 14:53 WBC 9.94 RBC 3.16 L Hgb 10.1 L Hct 30.2 L MCV 95.6 MCH 32.0 MCHC 33.4 RDW Std Deviation 46.3 RDW Coeff of Sdira 13.3 Plt Count 284 MPV 9.4 Immature Gran % (Auto) 0.4 Neut % (Auto) 64.6 Lymph % (Auto) 23.4 [place] % (Auto) 9.6 Eos % (Auto) 1.4 Baso % (Auto) 0.6 Neut # (Auto) 6.42 Lymph # (Auto) 2.33 [place] # (Auto) 0.95 H Eos # (Auto) 0.14 Baso # (Auto) 0.06 Immature Gran # (Auto) 0.04 PT 10.5 INR 1.0 Sodium 139 Potassium 3.9 Chloride 109 H Carbon Dioxide 24 Anion Gap 6 BUN 23 Creatinine 1.03 Est Cr Clr Drug Dosing 51.7 eGFR 71.63 BUN/Creatinine Ratio 22.3 H Glucose 146 H Calcium 8.7 Magnesium 2.1 Total Bilirubin 0.6 AST 23 ALT 13 Alkaline Phosphatase 45 Total Creatine Kinase 46 Troponin I High Sens 4.5 Total Protein 6.8 Albumin 4.0 Globulin 2.8 Albumin/Globulin Ratio 1.4 Lipase 19 Procalcitonin < 0.02 TSH 1.610 Diagnostic Findings Chest CTA 02/17/25 14:49 EXAMINATION: CT angio chest PE CLINICAL HISTORY: Lung mass, nausea, syncope PRIORS: None TECHNIQUE: Contiguous axial images were obtained through the chest with the use of intravenous contrast. Sagittal and coronal reformations are supplied. FINDINGS: Lung volumes are diminished. A mass is present in the right lower lobe, subpleural, approximately round in shape with well-defined borders. This measures 5.7 cm x 5.2 cm with surrounding groundglass attenuation. The contents of the mass are solid with heterogeneous appearance and scattered areas of gas. Mild diffuse increased reticular markings in the subpleural regions. Moderate centrilobular pulmonary emphysema. No additional mass. No airspace consolidation. No mediastinal adenopathy. Mildly prominent nonpathologically enlarged right hilar lymph nodes present measuring 0.7 cm in short axis. No axillary or subpectoral adenopathy. The pulmonary arteries are well opacified. No central or peripheral pulmonary embolism. No pleural or pericardial effusion. Heart size mildly enlarged. Moderate atherosclerotic disease identified. In bone windows, moderate degenerative change throughout the thoracic spine, allowing for PE technique. No acute fracture or suspicious osseous abnormality. IMPRESSION: Solid necrotizing mass in the right lower lobe measuring up to 5.7 cm. The presence of necrosis favors squamous cell carcinoma. An infectious or inflammatory process is possible although considered less likely. Electronically signed by Lynn De La Rosa 02-17-2025 4:37 PM Chest X-Ray 02/17/25 14:49 Clinical History: Chest pain Technique: 2 frontal views of the chest were obtained Comparison is made to the chest CT obtained today Findings: There is an approximately 6.7 cm cavitary mass in the right lower lobe with surrounding alveolar infiltrate. The heart size is within normal limits. No pleural effusion or pneumothorax is seen. No fracture is noted. No foreign body is seen Impression: 6.7 cm cavitary mass or lung abscess in the right lower lobe, better evaluated by today's CT examination ACT 112: Positive. There are findings on this exam that require communication between the performing entity and the patient following Patient Test Result Information Act ([place] ACT 112) guidelines. Electronically signed by Wesley Reina 02-17-2025 5:[address] 02/17/25 14:49 EXAMINATION: Head CT without CLINICAL HISTORY: Syncope versus seizure lung mass PRIORS: None TECHNIQUE: Contiguous axial images were obtained through the head without the use of intravenous contrast. Sagittal and coronal reformations are supplied. FINDINGS: Mild diffuse parenchymal volume loss noted. Periventricular lucency present bilaterally in the deep white matter. Thompson-white differentiation is preserved. No edema or midline shift. No intra-axial or extra-axial hemorrhage. Ventricles are normal in size and configuration. Brainstem and cerebellum have a normal appearance. Calvarium unremarkable. Paranasal sinuses and mastoid air cells are well-pneumatized. Globes are intact. No retrobulbar abnormality. IMPRESSION: No CT evidence of an acute intracranial abnormality. Electronically signed by Lynn De La Rosa 02-17-2025 4:28 PM Head CTA 02/17/25 14:49 EXAM: CTA head with CLINICAL HISTORY: Syncope versus seizure, lung mass TECHNIQUE: Contiguous CTA axial images were obtained through the head after the administration of intravenous contrast. Sagittal and coronal reformations are supplied. PRIORS: Noncontrast head today FINDINGS: Dental amalgam creates beam hardening artifact. This diminishes image quality. The vertebral arteries form the basilar artery at the skull base. [place] is patent. No thrombus or hemodynamically significant stenosis. No aneurysmal dilatation or bermudez aneurysm. No enhancing mass in the brain. IMPRESSION: No CTA evidence of an acute vascular abnormality. Electronically signed by Lynn D eLa Rosa 02-17-2025 4:28 PM Neck CTA 02/17/25 14:49 EXAM: CT angio neck with con CLINICAL HISTORY: Syncope versus seizure, lung mass TECHNIQUE: Contiguous CTA axial images were obtained through the neck with the administration of intravenous contrast. Sagittal and coronal reformations are supplied. MIPS are supplied. COMPARISON: None FINDINGS: The left-sided aortic arch noted with moderate atherosclerotic disease. Appropriate takeoff of the 3 great vessels noted with no hemodynamically significant stenosis. The bilateral common, internal and external iliac arteries are patent with no thrombus, hemodynamically significant stenosis or evidence of dissection. The bilateral internal carotid arteries enter at the petrous portion of the skull base normally. Very mild atherosclerotic plaque in the left carotid artery bulb. The vertebral arteries are well opacified, both contributing to the basilar artery at the brainstem. No hemodynamically significant stenosis. No enhancing mass visualized in the lower brain or neck. Electronically signed by Lynn De La Rosa 02-17-2025 4:31 PM Abdomen/Pelvis CT 02/17/25 15:02 EXAMINATION: Abdomen and pelvis CT with CLINICAL HISTORY: Lung mass, nausea, syncope PRIORS: None TECHNIQUE: Contiguous axial images were obtained through the abdomen and pelvis with the use of intravenous contrast. Sagittal and coronal reformations are supplied. FINDINGS: Chest CT is dictated under separate heading. Necrotic mass present in the right lung lower lobe. The liver is mildly enlarged measuring 18.3 cm with homogeneous enhancement. Focal hypoattenuation measuring 2 mm present in the right lobe. The portal vein, gallbladder, pancreas, spleen, under distended stomach, adrenals, aorta and IVC are morphologically unremarkable. Advanced atherosclerotic disease of the abdominal aorta noted. The infrarenal aorta is fusiform or tortuous in shape. Kidneys enhance symmetrically. No adrenal mass. No adenopathy, extraluminal gas or free fluid. Moderate to severe diverticulosis of the descending and sigmoid colon without pericolonic inflammatory change. Large amount of formed stool present in the colon. Prostate not enlarged. Urinary bladder distended and morphologically unremarkable. Moderate inguinal hernias present containing fat. Appendix is normal. No dilated loops of bowel or bowel wall thickening. In bone windows, moderate osseous demineralization noted. Moderate to advanced degenerative change throughout the lumbar spine. No acute or suspicious osseous abnormality. IMPRESSION: 1. No CT evidence of metastatic disease in the abdomen or pelvis. No adrenal mass. 2. No acute abdominal or pelvic abnormality. 3. Moderate to severe diverticulosis with no CT features of diverticulitis. 4. Hepatomegaly Electronically signed by Lynn De La Rosa 02-17-2025 4:41 PM Medications Administered Current Inpatient Medications Heparin Sodium (Porcine) (Heparin Sod 5,000 Unit/0.5 Ml Vial) 5,000 units SQ Q8 MELISA Stop: 03/20/25 13:59 Levetiracetam (Levetiracetam 500 Mg/5 Ml Vial) 500 mg IV Q12H MELISA Stop: 03/19/25 17:44 Lorazepam (Lorazepam 2 Mg/1 Ml Vial) 0.5 mg IV Q8H PRN PRN Reason: Anxiety/Agitation Stop: 02/19/25 17:49 Ondansetron HCl (Ondansetron Inj 2 Mg/Ml 2 Ml Vial) 4 mg IV Q6H PRN PRN Reason: Nausea Stop: 03/19/25 18:22 Code Status & VTE Plan Code Status full code VTE Prophylaxis Plan VTE Prophylaxis will be ordered: Yes PG Care Time/CCT Total # of Minutes Spent Total Time Spent with Patient: Total time spent is greater than 50% in coordination of care (as documented) at patient's floor/unit and/or counseling patient: Coding Level of Care Code 54254 INT INP/OBS CARE 2/55MIN Diagnoses Seizure R56.9 Time Spent (min) 55
[2025-02-17] MEDS ORDERED: MELATONIN 3 MG TAB PO PRN (18:42)
[2025-02-17] MEDS ORDERED: ALUMINUM/MAGNESIUM SUSP 30 ML UDC PO PRN (18:42)
[2025-02-17] MEDS ORDERED: MAGNESIUM HYDROXIDE SUSP 30 ML UDC PO PRN (18:42)
[2025-02-17] MEDS: GADOBUTROL 65ML VIAL IV ONE (19:15)
--- NOTE | 2025-02-17 20:26 | Magnetic Resonance Report ---
EXAM: MR brain wo/w con CLINICAL HISTORY: lung mass, seizure TECHNIQUE: Different pulse sequences were performed in different planes without and with GD-DTPA injection for the brain. Images were sent through PACs for interpretation. 7.5CC GADAVIST was injected intravenously without complications. COMPARISON: CT dated FINDINGS: No hyperacute or acute infarctions could be detected. 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 It follows CSF signals on different pulse sequences. No appreciable enhancement after Gd-DTPA injection. Altered deep white matter signals are seen at the forceps minor, forceps major, periventricular, and centrum semiovale regions. These exhibit bright signals on T2 and FLAIR WI, and intermediate signals on T1 WI. No appreciable enhancement after Gd-DTPA injection. Findings suggest consequences of small vessel disease, e.g., hypertensive and/or diabetic vasculopathy. Age-appropriate degenerative involutional changes are denoted by symmetrical dilatation of the ventricular system, prominent cortical sulci, sylvian fissures, cerebellar, vermian folia, and basal cisterns. Normal MRI appearance of the parenchymal signals. Normal MRI appearance of different anatomical parts of the brain stem, namely the midbrain, randa, and medulla oblongata. Normal MRI appearance of the petrous temporal bones, brainstem, vestibule cochlear nerves, and cerebellopontine angles with no definite masses. No shift of midline structures. No intracerebral or extra-axial hematomas or masses. Normal MRI appearance of orbital structures, both globes, optic nerves, optic chiasm, optic tracts and optic radiations. Mild mucosal thickening is seen at the maxillary antra. Other paranasal sinuses are clear. Bilateral cataract surgery. Hypertrophic nasal turbinates. IMPRESSION: 1. No hyperacute or acute infarctions could be depicted. 2. No enhancing lesions. 3. No intracerebral or extracerebral hematoma. 4. 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 5. Imaging features consistent with the consequences of small vessel disease, e.g., hypertensive and/or diabetic vasculopathy.([place] 2). 6. Age-appropriate degenerative involutional changes. 7. No enhancing parenchymal, Meningeal, or calvarial lesions to suggest metastatic disease. 8. The comparison matches the CT findings. Electronically signed by Farrukh Puente 02-17-2025 8:26 PM
[2025-02-17] MEDS ORDERED: [UNRECOGNIZED DRUG - OTHER] PO SCH (21:37)
[2025-02-17] MEDS ORDERED: ACETAMINOPHEN 500 MG TAB PO PRN (21:37)
[2025-02-17] MEDS: CEROVITE ADV FORMULA TAB PO SCH (22:42)
[2025-02-17] MEDS: ATORVASTATIN 10 MG TAB PO SCH (22:42)
[2025-02-17] MEDS: IPRATROPIUM BROMIDE NASAL SPRAY 0.06% 15ML NAE SCH (22:43)
[2025-02-18 00:13] VITALS: RESP 18
[2025-02-18 05:59] LABS: Hematocrit (blood only) 27.7 % (42.0-52.0); Hemoglobin 9.4 g/dl (14.0-18.0); Mean Corpuscular Hemoglobin 32.4 pg (25.0-34.0); Mean Corpuscular Volume 95.5 fL (80.0-100.0); Platelet Count 269 K/uL (130-400); RDW Standard Deviation 45.3 fL (36.4-46.3); Red Blood Count 2.90 M/uL (4.70-6.10); White Blood Count 6.98 K/ul (4.8-10.8)
[2025-02-18 06:18] LABS: Alanine Aminotransferase 10.0 U/L (7-52); Albumin Globulin Ratio 1.6 (0.9-2); Alkaline Phosphatase 40.0 U/L (34-104); Anion Gap 4.0 (3-11); Bilirubin,Total 0.5 mg/dl (0.2-1.0); Blood Urea Nitrogen 16.0 mg/dl (6-23); Calcium 8.5 mg/dl (8.6-10.3); Carbon Dioxide 28.0 mmol/L (21-32); Chloride 109.0 mmol/L (98-107); Creatinine Clr Calc Pharmacy 55.4 ml/min; Globulin 2.3 gm/dl (2.5-4.0); Glucose 101.0 mg/dl (70-99(Fasting)); Potassium 4.2 mmol/L (3.5-5.1); Sodium 141.0 mmol/L (136-145); Total Protein 5.9 gm/dl (6.0-8.3)
[2025-02-18 06:31] LABS: INR 1.0 (0.9-1.1); Partial Thromboplastin Time 27 Seconds (21-31); Prothrombin Time 10.5 Seconds (9.0-12.0)
[2025-02-18 07:29] VITALS: TEMP 98.1; O2SAT 96
[2025-02-18] MEDS: ATENOLOL 25 MG TABLET PO SCH (08:49)
[2025-02-18] MEDS: ADVANCED PROBIOTIC 625 MG CAPSULE PO SCH (08:49)
[2025-02-18] MEDS: POLYETHYLENE (MIRALAX) 17 GM PACK PO SCH (08:53)
[2025-02-18] MEDS: levETIRAcetam 500 MG TAB PO SCH (09:36)
--- NOTE | 2025-02-18 10:15 | Neurology Consultation ---
Date of Consultation February 18, 2025 Assessment & Plan (1) Witnessed seizure-like activity: (2) Hypotension: (3) Bradycardia: Plan Patient had an episode February 17 of lightheadedness with standing followed by some seizure-like activity including some twitching and incontinence of urine. This is likely a secondary seizure due to decreased COMPLIANCE CLERK perfusion. The patient has hypotension and bradycardia. In addition he has anemia as a background and a new onset diagnosis of right lower lobe lung mass. Patient has a history of intermittent anxiety and had an anxiety attack after hearing the news of this pulmonary issue yesterday. MRI of the brain was normal with no mass or any other abnormal lesion that would put him at risk for seizures. The patient continues to have some lightheadedness with standing today. His pulse and blood pressure were to tend to be low. Recommendations: 1. There is no need for an EEG or other neurologic testing. 2. I see no reason for long-term anticoagulation in this patient. Therefore I would discontinue levetiracetam. 3. Given his hypotension and bradycardia cardia, consider discontinuing atenolol 4. Keep up fluids and avoid dehydration 5. Otherwise I have no further neurologic testing or treatment recommendations to make at this time, please contact me if I can be of further assistance Overall, I spent a total of 60 minutes with this case including review of records, review of MRI films, direct evaluation the patient bedside, report generation, and discussion of the case with the patient and his daughter at bedside and Dr. Toth, including differential diagnosis and treatment options. History of Present Illness Reason for Consultation: Patient is an 84-year-old, however is asked to see at the request of Dr. Toth, for neurologic evaluation regarding seizure-like activity Requesting Physician: Dr. 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 The patient went to see Dr. Moore, pulmonology February 17 for a visit regarding his chronic cough with hemoptysis. After the visit and the discussion of the diagnostic possibilities the patient states that he became "panicky" and had considerable anxiety. He stood up and felt immediately lightheaded with a little bit of blurry vision. Apparently he paced a little bit and remembers this and had some incontinence of bladder but does not remember any twitching. He did not fall and this happened while he was up. He was sat back into the chair and recovered. He was sent immediately to the emergency room. The patient states that he denied vertigo, weakness, numbness, headache, or p ain. He remembers most of everything and did not lose consciousness. He had considerable nausea with the event without vomiting and this stayed till he arrived at the emergency room. He arrived at the emergency room February 17 at 1457 with a temperature of 36.4, pulse 56 and regular, respiratory rate 18, blood pressure 129/66 and O2 saturation 96%. The patient was awake and alert with good speech and mentation. There were no cranial nerve deficits or asymmetries. Blood pressure was somewhat lower at times as was his pulse which went down into the upper 40s. White count was normal but he has mild anemia. CHEM profile was unremarkable and his BUN to creatinine ratio was mildly high at 22.3 (normal 10-20). Glucose was mildly elevated at 146 liver profile, CK, lipase, procalcitonin, and TSH were all normal. The patient was given levetiracetam 500 mg twice daily MRI of the brain with and without contrast showed no acute findings or masses. Patient had mild to moderate old small vessel ischemic disease and atrophy consistent with age. I reviewed these films. The patient did well overnight although his pulse dropped into the upper 40s and. Blood pressure is low this morning at 107/52. CBC this morning shows anemia. The patient has no complaint of pain or headache. This morning he was a little lightheaded with standing going to the bathroom but felt better after eating breakfast. Currently he has no nausea, lightheadedness or any other symptoms. Allergies Allergy/AdvReac Type Severity Reaction Status Date / Time amoxicillin [From Augmentin] AdvReac severe Verified 02/17/25 18:13 nausea clavulanic acid AdvReac severe Verified 02/17/25 18:13 [From Augmentin] nausea Home Medications Medication Instructions Recorded Confirmed Type vit C 250 mg-vit E 90 mg-zinc 40 1 tab PO BID 03/22/19 02/17/25 History mg-copper 1 za-ljfcbr-foupsj capsule (PreserVision AREDS-2) acetaminophen 500 mg tablet 500 mg PO Q6H PRN Pain 08/24/22 02/17/25 History etqckbww-fukh-jmrpf acid 200 1 tab PO BID #30 tabs 09/20/23 02/17/25 Rx mcg-lycopene 5 mg-boron 250 mcg tablet (Bladder 2.2) amlodipine 10 mg tablet 10 mg PO QAM #90 tabs 03/17/24 02/17/25 Rx atorvastatin 10 mg tablet 10 mg PO HS #90 tabs 03/17/24 02/17/25 Rx atenolol 25 mg tablet 25 mg PO DAILY #30 tabs 01/15/25 02/17/25 Rx ipratropium bromide 42 mcg (0.06 2 spray intranasal TID #15 mL 01/22/25 02/17/25 Rx %) nasal spray lactobacillus combination no.4 15 15,000 mmu cells PO DAILY 02/17/25 02/17/25 History billion cell capsule omeprazole 20 mg capsule,delayed 40 mg PO DAILY 02/17/25 02/17/25 History release Patient History Medical History Melanoma in situ Followed by [facility] Tubular adenoma of colon 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 No Urology f/u at this time. Family history of melanoma Decreased hearing has hearing aids, does not wear them Surgical History H/O colonoscopy 09/2022 Repeat 3 yrs History of hernia surgery History of bladder surgery (~1985) Family History Unknown Skin cancer Heart disease Diabetes Sister Breast cancer Lung cancer Denies family history of Ovarian cancer Prostate cancer Myocardial infarction Colorectal cancer Stroke Social History Smoking Status: Former smoker Tobacco Type: Cigarettes Age Started Using Tobacco: 16; Age Quit Using Tobacco: 81; Cigarettes Per Day: 1-2, but "not every day"; Second Hand Exposure: No; Do You Dip or Chew Tobacco: No; Hx Alcohol Use: No Hx Substance Use: No Preferred Language: Turkish Communication Ability: Effective Visual Impairment: Limited Hearing Ability: Hard of Hearing Household Chores Required: No Beliefs That Will Affect Care: None marital status: Current Living Situation: Spouse current occupational status: retired 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 How many Children do You have: 4 Feels Safe at Home: Yes Childhood Exposure to Second-Hand Smoke: Yes (thinks father did ) Diet: regular caffeine: Yes (coffee) during the past year weight has: remained stable Dental Care, Regularly: No Physical Activity Frequency: Does not Exercise Seatbelt Use: always Sunscreen Use: No Assistive Devices: None Review of Systems Constitutional: no fever, no fatigue and no weakness Eyes: no diplopia, no eye pain and no worsening vision Ear, Nose, Mouth, Throat: no ear pain, no tinnitus, no hearing loss, no dizziness, no snoring, no hoarseness and no dysphagia Respiratory: no cough and no dyspnea Cardiovascular: no chest pain, no palpitations and no lightheadedness Gastrointestinal: no abdominal pain, no nausea and no vomiting Musculoskeletal: no back pain, no neck pain, no radicular pain, no joint pain and no myalgia Integumentary: no rash and no lesions Neurologic: no gait abnormality, no localized weakness, no generalized weakness, no tingling, no numbness, no tremor(s), no abnormal movements, no headache(s), no abnormal speech, no confusion and no memory loss Psychiatric: no depression, no irritability, no anxiety, no difficulty concentrating, no confusion and no hallucinations Endocrine: no fatigue and no flushing Hematologic / Lymphatic: no easy bleeding and no easy bruising Allergy / Immunological: no urticaria and no problem reported Exam (Neuro) Physical Exam: The patient is right-handed. The patient is awake, alert, and attentive. Speech is normal without any aphasia or dysarthria. Mentation and thought processes are intact, with full orientation and normal fund of knowledge. Mood and affect are normal and appropriate. Appearance and grooming are normal. Short and long-term memory are intact to conversation. Pupils are 4 mm bilaterally and reactive to light. Extraocular eye muscles are intact without nystagmus. Visual acuity and visual gunderson seem normal grossly to confrontation. There are no deficits to sensation in the face in all 3 distributions of the fifth cranial nerve bilaterally. Corneal reflexes are positive bilaterally. Facial strength and symmetry was normal bilaterally. Hearing seems intact grossly to voice and finger rub bilaterally. Palate moves well without asymmetry. There is normal sternocleidomastoid and trapezius strength bilaterally. Tongue is midline with good strength bilaterally. Neck has a full range of motion without discomfort. There are no cervical bruits bilaterally. There are no cranial or ocular bruits. Heart is without murmur. There is a regular rhythm and rate. Cervical, thoracic, and lumbar spine are nontender to palpation. Gait was not tested but stance sitting up in bed is normal. With outstretched arms there is no drift. There are no resting, postural, or action tremors. There is no ataxia with finger to nose testing. There is good facility in the hands. No other abnormal involuntary movements are noted. Motor strength is 5/5 diffusely in the arms bilaterally including deltoids, biceps, triceps, brachioradialis, wrist flexors and extensors, budget report clerk, and intrinsic hand muscles. Motor strength is 5/5 diffusely in the legs bilaterally including hip flexors, quadriceps, hamstrings, gastrocnemius, tibialis anterior, tibialis posterior, and Peroneii muscles bilaterally. Toe extensors are normal and there is good bulk in the extensor digitorum brevis muscles bilaterally. The limbs have good tone without rigidity or spasticity. There is no atrophy noted in the muscles. Muscle bulk is normal, there is no tenderness to palpation, no myotonia to percussion, and no fasciculations seen. Sensory examination is intact to touch and pin throughout all 4 limbs diffusely. Reflexes are 2/4 in the biceps, triceps, brachioradialis, quadriceps, and A chilles tendons bilaterally. Toes are downgoing with plantar stimulation bilaterally. Peripheral pulses are present and of normal quality distally in all 4 limbs. There is no peripheral edema noted in the limbs. Results & Data Vital Signs (Past 12 Hours) Vital Signs Temp Pulse Pulse Resp BP BP Pulse Ox 02/18/25 08:56 02/18/25 07:26 36.7 C 73 18 107/52 L 96 02/18/25 05:56 55 L 02/18/25 03:29 36.8 C 60 18 117/62 98 02/18/25 00:02 49 L 02/18/25 00:00 02/18/25 00:00 36.6 C 53 L 18 136/74 98 02/17/25 23:00 53 L 15 111/67 94 02/17/25 22:44 62 17 129/76 96 O2 Del Method 02/18/25 08:56 Room Air 02/18/25 07:26 Room Air 08/13/25 05:56 02/18/25 03:29 Room Air 02/18/25 00:02 02/18/25 00:00 Room Air 02/18/25 00:00 Room Air 02/17/25 23:00 Room Air 02/17/25 22:44 Room Air PG Care Time/CCT Total # of Minutes Spent Total Time Spent with Patient: Total time spent is greater than 50% in coordination of care (as documented) at patient's floor/unit and/or counseling patient: Coding Level of Care Code 11521 INT INP/OBS CARE 3/75MIN Diagnoses Witnessed seizure-like activity R56.9 Hypotension I95.9 Bradycardia R00.1
[2025-02-18 11:03] VITALS: PULSE 53
--- NOTE | 2025-02-18 12:57 | Electrocardiogram Report ---
Test Reason : Blood Pressure : */* mmHG Vent. Rate : 58 BPM Atrial Rate : 58 BPM P-R Int : 176 ms QRS Dur : 90 ms QT Int : 460 ms P-R-T Axes : -24 -13 -20 degrees QTcB Int : 451 ms Sinus bradycardia Low voltage QRS Inferior infarct , age undetermined Abnormal ECG Confirmed by Obed Salinas ([id number]) on 02/18/2025 12:57:27 PM Referred By: REFERRED SELF Confirmed By: Obed Salinas
[2025-02-18] MEDS ORDERED: HEPARIN SOD 5,000 UNIT/0.5 ML VIAL SQ SCH (14:00)
[2025-02-18 14:29] VITALS: BP 136/74
--- NOTE | 2025-02-18 18:13 | Discharge Summary ---
Discharge Summary Date of Service February 18, 2025 Principal Dx & Hospital Course #1 = Principal Diagnosis (1) Seizure: Hospital course Linus Phillips is a 84 yo male with newly found lung mass, post-nasal drip, hemoptysis. amoxicillin allergy, bladder cancer in 2009 on 02/17, he's was at pulmonary office for pre-op testing for bronchoscopy +/- EUBS. the lung specialist at planning for bronchoscopy in 2-3 weeks however, at 2pm, he was having seizure episode, involuntary movement, twitching and brought to ED for evaluation he s/p CTA head and neck, CTA chest and negative for large vessel CVA his CTA chest found solid necrotizing mass in the RLL measuring up to 5.7cm. brain MRI w/wo contrast negative for brain mass neurology consulted, seen by DR. Lion; Dr. Lion suspect the seizure episode is related to hypotension and deferring initiation of keppra he has no fever; no white count. upon further interview, patient admitted to skipping his lunch prior to doctor appointment he was dc home on february 18, 2025. he wa advised that no driving until cleared by PCP after his bronchoscopy +/- EUBS. he's likely need to see surgical oncologist we discusse he need to establish with loan documents closer for preop clearance. his sister also has had lung cancer and survived. family will try to following with the surgical and medical oncology that took care of the patient sister. all question answer and daughter updated in person Plan Linus Phillips is a 84 yo male with PMH of smoking, newly found lung mass, bladder cancer (2009), GERD, hypertension. he's been having runny nose, sinus pressure and went to ENT. however, there was concern he having hemoptysis and was referred to pulmonary, Dr. Kevin Moore. CXR show RLL lung mass Dr. Moore was plan for bronchoscopy +/- EUBS to investigate the mass, and order coagulation studies however, at 2pm on sunday (02/17), patient has witness seizure episode (twitching, bladder incontinence, pacing around the hallway) and brought here fo r evaluation his CTA chest found necrotizing lung mass in the RLL, CTA head and neck negative for large vessel thrombosis he's started on keppra IV and need brain MRI w/wo contrast to rule out brain metastasis. 1. seizure episode 2. newly found lung mass in RLL (5.6cm) 3. hx of bladder cancer 4. amoxicllin allergy 5. hypertension 6. GERD 7. HSTF 1. seizure episode witness on 02/17 at lung doctor office keppra IV BID, brain MRI w/wo contrast to r/o metastasis 2. newly found lung mass f/u on PT/aPTT and INR level. pulmonary was plan for bronchoscopy +/- EUBS for evaluation monitor for hypothermia and high WBC to r/o superimpose PNA. 3. hx of bladder cancer, s/p treatment in 2009 4. hypertension-atenolol 25mg daily and amlodpine 10mg daily 5. HLD, he's on lipitor 10mg qHS 6. eye condition, he's on preservison AREDS-2) 1 tab BID 7. GERD- omeprazole 20mg daily DVT prophylaxis, heparin starting tomorrow afternoon Admission HPI Per Admitting Provider Mr. Linus Phillips is a 84 yo male with PMH of smoking, bladder cancer (2009), GERD, he's been having epitaxis and sinus pressure and was following with ENT there was concern about hemoptysis and his CXR show 6cm in the RLL. he's went too pulmonary office, and was plan for cTA chest, PT, INR and plan for robotic navigational bronchoscopy +/o EBUS however, when he was at lung doctor today. at 2pm, patient was noted to have seizure episode with b/l twitching, inattention, and was having bladder incontinence. he's was brought to the ED and CTA head and neck negative for large vessel infarct his CTA chest found 5.7 solid necrotizing right lower lobe. he's receive keppra and needed medicine admission for seizure evaluation, brain metastasis rule out. he's need ongoing stabilization for hypothermia he is full code his designate his as decision maker Discharge Exam VITALS: Reviewed. WEIGHT/BMI reviewed. GEN: Healthy appearing, well-developed, NAD. PSYCH: Good Judgment. AOx3. Normal memory, mood, and affect. HEENT -Head: NC/AT; -Mouth and throat: MMM. Normal gums, mucosa, palate,. Good dentition. NECK: Supple, with no masses. CV: RRR, no m/r/g. LUNGS: CTAB, no w/r/c. ABD: Soft, NT/ND, NBS, no masses or organomegaly. : N/A SKIN: Warm, well perfused. No skin rashes or abnormal lesions. MSK: No deformities, Normal gait. EXT: No clubbing, cyanosis, or edema. NEURO: Ambulating with no limitations. Normal muscle strength and tone. No focal deficits. AAox3; 5/5 strength; following command; no seizure like movement. normal sensation to soft touch Discharge Plan Discharge Items Patient Disposition: Home - Self-Care Reason For Visit: SEIZURE, LUNG MASS, N/V, HEMOPTYSIS Discharge Diagnosis: seizure event, newly found lung mass hypotension episode Condition on Discharge: Fair Activity: Per Instructions section Lifting: Gradually increase as tolerated Non-emergency contact: Primary Care Provider and Colors Custodian Call non-emergency contact if: your symptoms worsen, you have a fever and your rectal temperature is above 100.4 Follow-up/Referrals: Brady Romero DO [Primary Care Provider] - 02/23/25 11:30 am (Hospital follow up scheduled for February 23, 2025 at 11:30am) Diet: Regular Addtl Attending Provider Instructions: you will avoid driving until clear by neurologist you will follow up with your pulmonary doctor if you noticed shortness of breath, or developed high fever you need to seek medical attention Pending Studies at Discharge: Yes Studies:: see pulmonary to schedule biopsy Stand-Alone Forms: My [facility] [email or web address], Smoking Cessation Medications and DC Order Prescriptions: Continued atorvastatin 10 mg tablet 10 mg PO HS Qty: 90 3RF amlodipine 10 mg tablet 10 mg PO QAM Qty: 90 3RF atenolol 25 mg tablet 25 mg PO DAILY Qty: 30 2RF PreserVision AREDS-2 [id number] lt-vzwt-xk-mg capsule 1 tab PO BID Patient Comments: Unable to verify OTC meds at this date/time. 02/17/25 ipratropium bromide 42 mcg (0.06 %) spray,non-aerosol 2 spray intranasal TID Qty: 15 3RF Rx Instructions: administer into each nostril Bladder 2.2 200-5-250 mcg-mg-mcg tablet 1 tab PO BID Qty: 30 0RF Patient Comments: Unable to verify OTC meds at this date/time. 02/17/25 acetaminophen 500 mg Tablet 500 mg PO Q6H PRN (Reason: Pain) Patient Comments: Unable to verify OTC meds at this date/time. 02/17/25 lactobacillus combination no.4 15 billion cell Capsule 15,000 mmu cells PO DAILY Patient Comments: Unable to verify OTC meds at this date/time. 02/17/25 Rx Instructions: administer with a meal omeprazole 20 mg capsule,delayed release(DR/EC) 40 mg PO DAILY Rx Instructions: Take 2 capsules by mouth once daily Discharge Orders: Discharge Order (Routine); Ordered 02/18/25 Ordered By: Mitesh Quijano/Other Patient Handouts: Surgery for Lung Cancer, Needle Biopsy Lung Dc, Diagnosing and Staging Lung Cancer, Lung Cancer Plan for Future Admission Data Admit Date/Time: 02/17/25 18:21 Attending Provider: Mitesh Toth Admit Provider: Mitesh Toth Primary Care Provider: Brady Romero Other Providers: Mitesh Toth; Wesley Lion Other Interventions: Discharge Summary Assessment (RN) Last Done: 02/18/25 14:28 Hospital Stay Data Consultations 02/17/25 17:14 ED Decision to Admit Stat 02/18/25 07:34 Consult Neurology Routine Diagnostic Imagining Performed 02/17/25 14:49 CT angio chest PE protocol Stat CT angio head w con Stat CT angio neck with con Stat CT head/brain wo con Stat 02/17/25 15:02 CT abd pelvis IV con only Stat 02/17/25 18:23 MRI Brain [MR brain wo/w con] Stat Pending Results Patient Have Any Pending Studies at Discharge: Yes Discharge Instructions Given to Patient (Per Discharging Provider) you will avoid driving until clear by neurologist you will follow up with your pulmonary doctor if you noticed shortness of breath, or developed high fever you need to seek medical attention Total Time Total Time Spent Total Time Spent (In Minutes): 35 Coding Level of Care Code 73203 INP/OBS DISCH >30 MIN Diagnoses Seizure R56.9 Time Spent (min) 30
== END 2025-02-18 15:00 | disposition home or self-care (01) | DRG 101 ==
LOC: ED 14:42 → EDINP 18:21 → 4W 21:38

== ENCOUNTER 2025-05-25 21:48 | Inpatient (IN) ==
--- NOTE | 2025-05-25 22:05 | Emergency Department Note ---
Impression & Plan Lung mass, Pneumonia Admission ED Provider Note HPI: History obtained from patient and patient's at the bedside. The patient is a 84-year-old gentleman who presents the emergency department with his at the bedside over concern for some generalized weakness and "shaking". Patient presents with some mild restlessness and tremulousness of the upper extremities and lower extremities. His states this has been ongoing for the past several days but really got worse today. Patient denies any recent fever/chills, denies any cough or congestion. On arrival here to the ED the patient does not have any focal deficits, he is alert and oriented x 3, he is mildly tachycardic but otherwise appears to be in no acute distress. Patient's notes that the patient has been anxious because they believe he might have lung cancer and he has an upcoming biopsy. ROS: - Per HPI Differential Diagnosis: Anxiety reaction, sepsis, viral upper respiratory infection to include influenza A, COVID-19, UTI, critical electrolyte abnormalities, acute kidney injury/dehydration, amongst other potential pathologies. *Outpatient medications and allergy history reviewed. PE: General: Alert HEENT: Normocephalic, trachea midline Eyes: Extraocular eye movement is intact, no scleral erythema Pulmonary: Clear to auscultation bilaterally, no wheezing Cardio: Regular rate and rhythm GI: Abdomen is soft to palpation : No suprapubic tenderness MSK: No evidence of trauma or malformation of the extremities, no edema Skin: No evidence of rash Neuro: Mild resting tremulousness noted of all extremities, patient is alert, no focal deficits noted, symmetrical facial movements are appreciated, equal bilateral typist strength Psychiatric: Patient is anxious appearing but overall cooperative 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 Lab work shows a leukocytosis of 17.57, hemoglobin is stable at 10.7, platelet count is normal. CMP does not show any evidence of any critical findings. Lactic acid is within normal limits. Procalcitonin is pending. Troponin is negative x 1. COVID and influenza testing are negative. Chest x-ray is concerning for possible right lower lobe infiltrate, this is in the area where the patient has a known lung mass suspicious for malignancy however there does appear to be some surrounding congestion/infiltrate to the area. Given the patient's leukocytosis I am concerned for infection and possible early sepsis given his weakness. Blood cultures were drawn in the ED and the patient was treated with IV cefepime. I discussed all of the above findings with the patient and with his family at the bedside, at this time they are in agreement for admission. [facility] hospitalist service was consulted for admission and the patient was placed for admission in stable condition. Consultants/Discussions held with other healthcare providers: -Hospitalist, Dr. Sinclair Disposition discussion held by myself with: -Patient and family at bedside Diagnosis: 1. Right lower lobe infiltrate, acute 2. Leukocytosis, acute 3. Generalized weakness/fatigue, acute 4. Tremors, acute, nonspecific Disposition: Admission Gerson Holt DO Emergency Medicine Past Med/Surg History Problem List (Updated 05/25/25 @ 23:35 by Gerson Holt DO) Pneumonia (Acute) Tricuspid regurgitation Mitral regurgitation Sinus bradycardia Abnormal positron emission tomography (PET) scan Bradycardia Seizure New onset seizure Ex-smoker Lung mass (Acute) Post-nasal drip Hemoptysis, unspecified Rhinitis JAYLAN (generalized anxiety disorder) Elevated hemoglobin A1c Mild cognitive disorder Normocytic anemia Hypertension (Chronic) Gastroesophageal reflux disease (Chronic) Enlarged prostate with lower urinary tract symptoms (LUTS) (Acute) Dyslipidemia (Chronic) Chronic osteoarthritis (Chronic) Medical History History of bradycardia (02/18/25) Hypertension GERD (gastroesophageal reflux disease) Bleeding disorder Lung mass Enlarged prostate with lower urinary tract symptoms (LUTS) JAYLAN (generalized anxiety disorder) Dyslipidemia Chronic osteoarthritis Syncope Witnessed seizure-like activity (02/17/25) Melanoma in situ Tubular adenoma of colon Transitional cell carcinoma of bladder Family history of melanoma Decreased hearing Surgical History Hx of cataract extraction (2022) Hx of wisdom tooth extraction Hx of melanoma excision H/O colonoscopy History of hernia surgery History of bladder surgery (~1997) Family History Unknown Skin cancer Heart disease Diabetes Sister Breast cancer Lung cancer Denies family history of Ovarian cancer Prostate cancer Myocardial infarction Colorectal cancer Stroke Social History Smoking Status: Former smoker Tobacco Type: Cigarettes Age Started Using Tobacco: 16; Age Quit Using Tobacco: 81; packs per day: 1; Cigarettes Per Day: quit 30 years ago x 25 years- started smoking again x 1 year- stop 3 years; Second Hand Exposure: No; Do You Dip or Chew Tobacco: No; Hx Alcohol Use: No Hx Substance Use: No Preferred Language: Romansh Communication Ability: Effective Visual Impairment: Limited Hearing Ability: Hard of Hearing Change Management Specialist Required: No Beliefs That Will Affect Care: None marital status: Current Living Situation: Spouse current occupational status: retired 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 How many Children do You have: 4 Feels Safe at Home: Yes Childhood Exposure to Second-Hand Smoke: Yes (thinks father did ) Diet: regular caffeine: Yes (coffee) during the past year weight has: remained stable Dental Care, Regularly: No Physical Activity Frequency: Does not Exercise Seatbelt Use: always Sunscreen Use: No Assistive Devices: Denture - Upper, Denture - Lower and Glasses Allergies Allergies Allergy/AdvReac Type Severity Reaction Status Date / Time amoxicillin [From Augmentin] AdvReac Mild severe Verified 04/24/25 13:02 nausea clavulanic acid AdvReac Mild severe Verified 04/24/25 13:02 [From Augmentin] nausea Home Meds Home Medications Medication Instructions Recorded Confirmed lactobacillus combination no.4 15 15,000 mmu cells PO DAILY 02/17/25 05/25/25 billion cell capsule omeprazole 20 mg capsule,delayed 40 mg PO DAILY 02/17/25 05/25/25 release Previous Rx's Medication Instructions Recorded amlodipine 10 mg tablet 10 mg PO QAM #90 tabs 03/16/25 atorvastatin 10 mg tablet 10 mg PO HS #90 tabs 03/16/25 atenolol 25 mg tablet 25 mg PO QAM #30 tabs 05/15/25 Results & Data (ED) Vital Signs Vital Signs - 24 hr 05/25/25 21:49 05/25/25 21:49 05/25/25 21:50 Temperature 36.5 C Temperature Source Oral Pulse Rate 112 H Pulse Rate [Right Finger] 95 H Pulse Rate from SpO2 Sensor Respiratory Rate 18 18 Respiratory Effort / Characteristics Non-Labored Spontaneous Respiratory Depth Normal Blood Pressure 116/38 L Blood Pressure [Right Arm] 151/59 H Blood Pressure Mean 64 Blood Pressure Mean [Right Arm] 89 Blood Pressure Position Sitting Pulse Oximetry 93 90 Oxygen Delivery Method Room Air Room Air Room Air Sepsis Recent Fever Within 48 Hours No Sepsis New/Unexplained Change in Mental Status N/A Sepsis Action Taken by Nursing No Action Required 05/25/25 21:55 05/25/25 22:22 05/25/25 22:22 Temperature Temperature Source Pulse Rate 94 H Pulse Rate [Right Finger] Pulse Rate from SpO2 Sensor Respiratory Rate 20 Respiratory Effort / Characteristics Respiratory Depth Blood Pressure 151/59 H 151/59 H Blood Pressure [Right Arm] Blood Pressure Mean 104 104 Blood Pressure Mean [Right Arm] Blood Pressure Position Pulse Oximetry 94 Oxygen Delivery Method Room Air Sepsis Recent Fever Within 48 Hours Sepsis New/Unexplained Change in Mental Status Sepsis Action Taken by Nursing 05/25/25 22:22 05/25/25 22:22 05/25/25 22:24 Temperature Temperature Source Pulse Rate 96 H Pulse Rate [Right Finger] Pulse Rate from SpO2 Sensor 96 H Respiratory Rate 26 H Respiratory Effort / Characteristics Respiratory Depth Blood Pressure 151/59 H 151/59 H Blood Pressure [Right Arm] Blood Pressure Mean 104 104 Blood Pressure Mean [Right Arm] Blood Pressure Position Pulse Oximetry 94 Oxygen Delivery Method Sepsis Recent Fever Within 48 Hours Sepsis New/Unexplained Change in Mental Status Sepsis Action Taken by Nursing 05/25/25 22:30 05/25/25 22:31 05/25/25 22:31 Temperature Temperature Source Pulse Rate 92 H Pulse Rate [Right Finger] Pulse Rate from SpO2 Sensor 92 H Respiratory Rate 26 H Respiratory Effort / Characteristics Respiratory Depth Blood Pressure 128/50 L 128/50 L Blood Pressure [Right Arm] Blood Pressure Mean 79 79 Blood Pressure Mean [Right Arm] Blood Pressure Position Pulse Oximetry 96 Oxygen Delivery Method Sepsis Recent Fever Within 48 Hours Sepsis New/Unexplained Change in Mental Status Sepsis Action Taken by Nursing 05/25/25 22:31 05/25/25 22:31 05/25/25 22:42 Temperature Temperature Source Pulse Rate 91 H Pulse Rate [Right Finger] Pulse Rate from SpO2 Sensor 91 H Respiratory Rate 26 H Respiratory Effort / Characteristics Respiratory Depth Blood Pressure 128/50 L 128/50 L Blood Pressure [Right Arm] Blood Pressure Mean 79 79 Blood Pressure Mean [Right Arm] Blood Pressure Position Pulse Oximetry 95 Oxygen Delivery Method Sepsis Recent Fever Within 48 Hours Sepsis New/Unexplained Change in Mental Status Sepsis Action Taken by Nursing 05/25/25 22:45 05/25/25 22:46 05/25/25 22:46 Temperature Temperature Source Pulse Rate 86 Pulse Rate [Right Finger] Pulse Rate from SpO2 Sensor 86 Respiratory Rate 26 H Respiratory Effort / Characteristics Respiratory Depth Blood Pressure 131/69 131/69 Blood Pressure [Right Arm] Blood Pressure Mean 91 91 Blood Pressure Mean [Right Arm] Blood Pressure Position Pulse Oximetry 94 Oxygen Delivery Method Sepsis Recent Fever Within 48 Hours Sepsis New/Unexplained Change in Mental Status Sepsis Action Taken by Nursing Laboratory Data 05/25/25 22:08 05/25/25 22:08 Lab Results 05/25/25 05/25/25 Range/Units 22:08 22:38 WBC 17.57 H (4.8-10.8) K/ul RBC 3.34 L (4.70-6.10) M/uL Hgb 10.7 L (14.0-18.0) g/dL Hct 31.0 L (42.0-52.0) % MCV 92.8 (80.0-100.0) fL MCH 32.0 (25.0-34.0) pg MCHC 34.5 (32.0-36.0) g/dL RDW Std Deviation 43.2 (36.4-46.3) fL RDW Coeff of Sidra 12.6 (11.5-14.5) % Plt Count 326 (130-400) K/uL MPV 9.4 (9.4-12.4) fL Immature Gran % (Auto) 0.6 % Neut % (Auto) 76.8 % Lymph % (Auto) 12.3 % [place] % (Auto) 9.3 % Eos % (Auto) 0.7 % Baso % (Auto) 0.3 % Neut # (Auto) 13.50 H (1.40-6.50) K/uL Lymph # (Auto) 2.16 (1.20-3.40) K/uL [place] # (Auto) 1.64 H (0.11-0.59) K/uL Eos # (Auto) 0.12 (0.00-0.50) K/uL Baso # (Auto) 0.05 (0.00-0.20) K/uL Immature Gran # (Auto) 0.10 (0.01-0.20) K/uL PT 10.9 (9.0-12.0) Seconds INR 1.0 (0.9-1.1) Sodium 138 (136-145) mmol/L Potassium 3.8 (3.5-5.1) mmol/L Chloride 104 (98-107) mmol/L Carbon Dioxide 23 (21-32) mmol/L Anion Gap 11 (3-11) BUN 19 (6-23) mg/dl Creatinine 1.17 (0.6-1.4) mg/dl Est Cr Clr Drug Dosing 45.5 ml/min eGFR 61.47 BUN/Creatinine Ratio 16.2 (10-20) Glucose 148 H (70-99(Fasting)) mg/dl Lactate 1.7 (0.4-2.0) mmol/L Calcium 9.2 (8.6-10.3) mg/dl Total Bilirubin 0.7 (0.2-1.0) mg/dl AST 13 (13-39) U/L ALT 7 (7-52) U/L Alkaline Phosphatase 53 (34-104) U/L Troponin I High Sens 7.1 (0-20) pg/ml Total Protein 7.5 (6.0-8.3) gm/dl Albumin 4.0 (3.4-5.0) gm/dl Globulin 3.5 (2.5-4.0) gm/dl Albumin/Globulin Ratio 1.1 (0.9-2) Lipase 9 L (11-82) U/L SARS-CoV-2 (PCR) NEGATIVE (Negative) Influenza Type A (PCR) Negative (Neg) Influenza Type B (PCR) Negative (Neg) RSV (RT-PCR) Negative (Neg) Administered Medications Discontinued Medications Sodium Chloride (Nss) 1,000 mls @ 999 mls/hr IV .Q1H1M STA Stop: 05/25/25 22:55 Last Infusion: 05/25/25 23:21 Dose: Infused Documented By: vgr Admin: 05/25/25 22:11 Dose: 999 mls/hr Documented By: MIGUELINA Lorazepam (Lorazepam 1 Mg/1 Ml Syr Ed Inj Use) 0.5 mg IV ONE STA Stop: 05/25/25 22:06 Last Admin: 05/25/25 22:19 Dose: 0.5 mg Documented By: [email or web address] Discharge Plan Visit Data Chief Complaint: Weakness Stated Complaint: JITTERY, WEAK, SX PAST COUPLE DAYS, GETTING WORSE ED Provider: Gerson Holt Discharge Problem: Lung mass, Pneumonia Patient Disposition: Admitted As Inpatient Condition: Fair Forms Stand Alone Forms: My [facility] PEER Prescriptions Prescriptions: No Action atorvastatin 10 mg tablet 10 mg PO HS Qty: 90 3RF amlodipine 10 mg tablet 10 mg PO QAM Qty: 90 3RF atenolol 25 mg tablet 25 mg PO QAM Qty: 30 3RF lactobacillus combination no.4 15 billion cell Capsule 15,000 mmu cells PO DAILY Patient Comments: Unable to verify OTC meds at this date/time. 02/17/25 Rx Instructions: administer with a meal omeprazole 20 mg capsule,delayed release(DR/EC) 40 mg PO DAILY Hold Instructions: While on cefuroxime Rx Instructions: Take 2 capsules by mouth once daily Referrals Referrals: Brady Romero DO [Primary Care Provider] -
[2025-05-25] MEDS: SODIUM CHLORIDE 0.9% 1,000 ML IV STA (22:11)
[2025-05-25] MEDS: LORazepam 1 MG/1 ML SYR ED Inj Use IV STA (22:19)
[2025-05-25 22:24] LABS: Hematocrit (blood only) 31.0 % (42.0-52.0); Hemoglobin 10.7 g/dL (14.0-18.0); Immature Granulocytes # (auto) 0.10 K/uL (0.01-0.20); Immature Granulocytes % (auto) 0.6 %; Mean Corpuscular Hemoglobin 32.0 pg (25.0-34.0); Mean Corpuscular Volume 92.8 fL (80.0-100.0); Platelet Count 326 K/uL (130-400); RDW Standard Deviation 43.2 fL (36.4-46.3); Red Blood Count 3.34 M/uL (4.70-6.10); White Blood Count 17.57 K/ul (4.8-10.8)
[2025-05-25 22:43] LABS: Alanine Aminotransferase 7.0 U/L (7-52); Albumin Globulin Ratio 1.1 (0.9-2); Albumin Level 4.0 gm/dl (3.4-5.0); Alkaline Phosphatase 53.0 U/L (34-104); Anion Gap 11.0 (3-11); Bilirubin,Total 0.7 mg/dl (0.2-1.0); Blood Urea Nitrogen 19.0 mg/dl (6-23); Calcium 9.2 mg/dl (8.6-10.3); Carbon Dioxide 23.0 mmol/L (21-32); Chloride 104.0 mmol/L (98-107); Creatinine Clr Calc Pharmacy 45.5 ml/min; Globulin 3.5 gm/dl (2.5-4.0); Glucose 148.0 mg/dl (70-99(Fasting)); Lipase 9.0 U/L (11-82); Potassium 3.8 mmol/L (3.5-5.1); Sodium 138.0 mmol/L (136-145); Total Protein 7.5 gm/dl (6.0-8.3)
[2025-05-25 22:55] LABS: INR 1.0 (0.9-1.1); Prothrombin Time 10.9 Seconds (9.0-12.0)
[2025-05-25 23:01] LABS: Influenza A virus by PCR Negative (Neg); Influenza B virus by PCR Negative (Neg); SARS CoV2 RNA(COVID-19) Ceph NEGATIVE (Negative)
[2025-05-25] MEDS: CEFEPIME 2000MG 2,000 MG/20 ML SYR IV STA (23:35)
--- NOTE | 2025-05-25 23:40 | XRay Report ---
Exam(s): XR CXR 1 VIEW EXAM: XR Chest, 1 View CLINICAL HISTORY: weak. TECHNIQUE: Frontal view of the chest. COMPARISON: Portable chest 03/04/2025 FINDINGS: Lungs: The rounded lung mass in the right lower lung zone is no longer distinctly identified with more diffuse airspace opacity now identified throughout the right lower lung zone. The left lung is well-aerated. Pleural space: No pleural effusion or pneumothorax. Heart: Unremarkable. No cardiomegaly. Mediastinum: No significant abnormality identified. The trachea is midline. Bones/joints: Degenerative changes of the shoulders. No acute fracture. IMPRESSION: The rounded lung mass in the right lower lung zone is no longer distinctly identified with more diffuse airspace opacity now identified throughout the right lower lung zone. This may represent advancing neoplasm versus developing coexisting right lower lung zone infection. Electronically signed by: Tom Godwin MD 05/25/25 23:39 PM
[2025-05-26] MEDS ORDERED: ALBUT/IPRATROP 3MG/0.5MG NEB 3 ML VIAL NEB PRN (00:19)
--- NOTE | 2025-05-26 00:22 | History & Physical Report ---
Date of Service May 26, 2025 Assessment & Plan (1) Postobstructive pneumonia: (2) Lung mass: (3) Hypertension: Plan The patient is an 84-year-old male with a past medical history including right lower lobe lung mass, tricuspid regurgitation, mitral regurgitation, sinus bradycardia, seizure, ex smoker, JAYLAN, mild cognitive disorder, hypertension, dyslipidemia, BPH with LUTS, and chronic osteoarthritis. He presents to the emergency department with feelings of generalized weakness, fatigue, and shaking of upper extremities over the past few days. He continues to have a cough, which is overall more productive that has been. He is scheduled for a second lung bronchoscopic biopsy and a biopsy of left ischium lesion on 05/27. He has no other complaints. 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 Right lower lobe postobstructive pneumonia/right lower lobe lung mass- Received cefepime 2 g IV from the ED Zosyn 4.5 g IV every 8 hours DuoNebs every 2 hours as needed MRSA swab, add coverage if positive Nasal cannula oxygen, titrate to keep pulse ox around 94% Patient is scheduled to undergo a second bronchoscopic lung biopsy and biopsy of left ischial lesion on 05/27. Consult pulmonology, Dr. Moore, who is outpatient pulmonary function technologist. Upper extremity shakes/tremors- Likely a function of general weakness secondary to progressive lung infection/mass He does report decreased oral intake over the past few days Hypertension- Continue atenolol and amlodipine with hold parameters Hyperlipidemia- Continue atorvastatin History of Present Illness Primary Care Provider: Brady Romero, The patient is an 84-year-old male with a past medical history including right lower lobe lung mass, tricuspid regurgitation, mitral regurgitation, sinus bradycardia, seizure, ex smoker, JAYLAN, mild cognitive disorder, hypertension, dyslipidemia, BPH with LUTS, and chronic osteoarthritis. He presents to the emergency department with feelings of generalized weakness, fatigue, and shaking of upper extremities over the past few days. He continues to have a cough, which is overall more productive that has been. He is scheduled for a second lung bronchoscopic biopsy and a biopsy of left ischium lesion on 05/27. He has no other complaints. 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 Allergies Allergy/AdvReac Type Severity Reaction Status Date / Time amoxicillin [From Augmentin] AdvReac Mild severe Verified 04/24/25 13:02 nausea clavulanic acid AdvReac Mild severe Verified 04/24/25 13:02 [From Augmentin] nausea Home Medications Medication Instructions Recorded Confirmed Type lactobacillus combination no.4 15 15,000 mmu cells PO DAILY 02/17/25 05/25/25 History billion cell capsule omeprazole 20 mg capsule,delayed 40 mg PO DAILY 02/17/25 05/25/25 History release amlodipine 10 mg tablet 10 mg PO QAM #90 tabs 03/16/25 05/25/25 Rx atorvastatin 10 mg tablet 10 mg PO HS #90 tabs 03/16/25 05/25/25 Rx atenolol 25 mg tablet 25 mg PO QAM #30 tabs 05/15/25 05/25/25 Rx Past Med/Surg History Problem List (Updated 05/26/25 @ 00:45 by Patrice Sinclair MD) Postobstructive pneumonia Pneumonia (Acute) Tricuspid regurgitation Mitral regurgitation Sinus bradycardia Abnormal positron emission tomography (PET) scan Bradycardia Seizure New onset seizure Ex-smoker Lung mass (Acute) Post-nasal drip Hemoptysis, unspecified Rhinitis JAYLAN (generalized anxiety disorder) Elevated hemoglobin A1c Mild cognitive disorder Normocytic anemia Hypertension (Chronic) Gastroesophageal reflux disease (Chronic) Enlarged prostate with lower urinary tract symptoms (LUTS) (Acute) Dyslipidemia (Chronic) Chronic osteoarthritis (Chronic) Medical History History of bradycardia (02/18/25) Hypertension GERD (gastroesophageal reflux disease) Bleeding disorder Lung mass Enlarged prostate with lower urinary tract symptoms (LUTS) JAYLAN (generalized anxiety disorder) Dyslipidemia Chronic osteoarthritis Syncope Witnessed seizure-like activity (02/17/25) Melanoma in situ Tubular adenoma of colon Transitional cell carcinoma of bladder Family history of melanoma Decreased hearing Surgical History Hx of cataract extraction (2022) Hx of wisdom tooth extraction Hx of melanoma excision H/O colonoscopy History of hernia surgery History of bladder surgery (~1997) Family History Unknown Skin cancer Heart disease Diabetes Sister Breast cancer Lung cancer Denies family history of Ovarian cancer Prostate cancer Myocardial infarction Colorectal cancer Stroke Social History Smoking Status: Former smoker Tobacco Type: Cigarettes Age Started Using Tobacco: 16; Age Quit Using Tobacco: 81; packs per day: 1; Cigarettes Per Day: quit 30 years ago x 25 years- started smoking again x 1 year- stop 3 years; Second Hand Exposure: No; Do You Dip or Chew Tobacco: No; Hx Alcohol Use: No Hx Substance Use: No Preferred Language: Kinyarwanda Communication Ability: Effective Visual Impairment: Limited Hearing Ability: Hard of Hearing Director Of Channel Marketing Required: No Beliefs That Will Affect Care: None marital status: Current Living Situation: Spouse current occupational status: retired 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 How many Children do You have: 4 Feels Safe at Home: Yes Childhood Exposure to Second-Hand Smoke: Yes (thinks father did ) Diet: regular caffeine: Yes (coffee) during the past year weight has: remained stable Dental Care, Regularly: No Physical Activity Frequency: Does not Exercise Seatbelt Use: always Sunscreen Use: No Assistive Devices: Denture - Upper, Denture - Lower and Glasses Review of Systems Review of Systems: The patient denies chest pain, palpitations, lower extremity swelling, sore throat, fevers, chills, sweats, nausea, vomiting, diarrhea , constipation, abdominal pain, pelvic pain, blood in urine or stool, dysuria, urinary frequency or urgency, lightheadedness, dizziness, headache, loss of consciousness, rash, abnormal bruising or bleeding, Focal weakness, numbness or tingling in arms or legs, or night sweats. The review of systems is otherwise negative other than for that already noted above, and at least 10 systems have been reviewed. Physical Exam Physical Exam: The patient is awake, alert and oriented 3, well developed and well nourished, normocephalic and atraumatic, lying in bed and in no acute distress. HEENT--PERRL, EOMI, mucous membranes and oropharynx normal. Neck--supple. No JVD. No bruits. Thyroid normal, trachea midline, no adenopathy. Heart--normal S1 and S2. No murmurs, rubs or gallops. Lungs--decreased breath sounds right base. No respiratory distress, no acc essory muscle use. Abdomen--normal bowel sounds and soft. Nontender. Nondistended, no hernias or masses, no organomegaly. Extremities--No edema. Dermatologic--normal skin turgor, normal color, no abnormal lymph nodes, no rash. Neurologic--cranial nerves II through XII grossly intact. Rheumatologic--normal range of motion. Psychiatric--normal affect. Results & Data Results & Data Vital Signs (Past 12 Hours) Vital Signs Temp Pulse Pulse Resp BP BP Pulse Ox 05/25/25 22:46 131/69 05/25/25 22:46 131/69 05/25/25 22:45 86 26 H 94 05/25/25 22:42 91 H 26 H 95 05/25/25 22:31 128/50 L 05/25/25 22:31 128/50 L 05/25/25 22:31 128/50 L 05/25/25 22:31 128/50 L 05/25/25 22:30 92 H 26 H 96 05/25/25 22:24 96 H 26 H 94 05/25/25 22:22 151/59 H 05/25/25 22:22 151/59 H 05/25/25 22:22 151/59 H 05/25/25 22:22 151/59 H 05/25/25 21:55 94 H 20 94 05/25/25 21:50 36.5 C 112 H 18 116/38 L 90 05/25/25 21:49 95 H 18 151/59 H 93 05/25/25 21:49 O2 Del Method 05/25/25 22:46 05/25/25 22:46 05/25/25 22:45 05/25/25 22:42 05/25/25 22:31 05/25/25 22:31 05/25/25 22:31 05/25/25 22:31 05/25/25 22:30 05/25/25 22:24 05/25/25 22:22 05/25/25 22:22 05/25/25 22:22 05/25/25 22:22 05/25/25 21:55 Room Air 05/25/25 21:50 Room Air 05/25/25 21:49 Room Air 05/25/25 21:49 Room Air Laboratory Results Laboratory Results WBC 17.57 K/ul (4.8-10.8) H 11/17/25 22:08 RBC 3.34 M/uL (4.70-6.10) L 05/25/25 22:08 Hgb 10.7 g/dL (14.0-18.0) L 05/25/25 22:08 Hct 31.0 % (42.0-52.0) L 05/25/25 22:08 MCV 92.8 fL (80.0-100.0) 05/25/25 22:08 MCH 32.0 pg (25.0-34.0) 05/25/25 22:08 MCHC 34.5 g/dL (32.0-36.0) 05/25/25 22:08 RDW Std Deviation 43.2 fL (36.4-46.3) 05/25/25 22:08 RDW Coeff of Sidra 12.6 % (11.5-14.5) 05/25/25 22:08 Plt Count 326 K/uL (130-400) 05/25/25 22:08 MPV 9.4 fL (9.4-12.4) 05/25/25 22:08 Immature Gran % (Auto) 0.6 % 05/25/25 22:08 Neut % (Auto) 76.8 % 05/25/25 22:08 Lymph % (Auto) 12.3 % 05/25/25 22:08 [place] % (Auto) 9.3 % 05/25/25 22:08 Eos % (Auto) 0.7 % 05/25/25 22:08 Baso % (Auto) 0.3 % 05/25/25 22:08 Neut # (Auto) 13.50 K/uL (1.40-6.50) H 05/25/25 22:08 Lymph # (Auto) 2.16 K/uL (1.20-3.40) 05/25/25 22:08 [place] # (Auto) 1.64 K/uL (0.11-0.59) H 05/25/25 22:08 Eos # (Auto) 0.12 K/uL (0.00-0.50) 05/25/25 22:08 Baso # (Auto) 0.05 K/uL (0.00-0.20) 05/25/25 22:08 Immature Gran # (Auto) 0.10 K/uL (0.01-0.20) 05/25/25 22:08 PT 10.9 Seconds (9.0-12.0) 05/25/25 22:08 INR 1.0 (0.9-1.1) 05/25/25 22:08 Sodium 138 mmol/L (136-145) 05/25/25 22:08 Potassium 3.8 mmol/L (3.5-5.1) 05/25/25 22:08 Chloride 104 mmol/L (98-107) 05/25/25 22:08 Carbon Dioxide 23 mmol/L (21-32) 05/25/25 22:08 Anion Gap 11 (3-11) 05/25/25 22:08 BUN 19 mg/dl (6-23) 05/25/25 22:08 Creatinine 1.17 mg/dl (0.6-1.4) 05/25/25 22:08 Est Cr Clr Drug Dosing 45.5 ml/min 05/25/25 22:08 eGFR 61.47 05/25/25 22:08 BUN/Creatinine Ratio 16.2 (10-20) 05/25/25 22:08 Glucose 148 mg/dl (70-99(Fasting)) H 05/25/25 22:08 Lactate 1.7 mmol/L (0.4-2.0) 05/25/25 22:38 Calcium 9.2 mg/dl (8.6-10.3) 05/25/25 22:08 Total Bilirubin 0.7 mg/dl (0.2-1.0) 05/25/25 22:08 AST 13 U/L (13-39) 05/25/25 22:08 ALT 7 U/L (7-52) 05/25/25 22:08 Alkaline Phosphatase 53 U/L (34-104) 05/25/25 22:08 Troponin I High Sens 7.1 pg/ml (0-20) 05/25/25 22:08 Total Protein 7.5 gm/dl (6.0-8.3) 05/25/25 22:08 Albumin 4.0 gm/dl (3.4-5.0) 05/25/25 22:08 Globulin 3.5 gm/dl (2.5-4.0) 05/25/25 22:08 Albumin/Globulin Ratio 1.1 (0.9-2) 05/25/25 22:08 Lipase 9 U/L (11-82) L 05/25/25 22:08 SARS-CoV-2 (PCR) NEGATIVE (Negative) 05/25/25 22:08 Influenza Type A (PCR) Negative (Neg) 05/25/25 22:08 Influenza Type B (PCR) Negative (Neg) 05/25/25 22:08 RSV (RT-PCR) Negative (Neg) 05/25/25 22:08 Impressions Chest X-Ray 05/25/25 21:55 Exam(s): XR CXR 1 VIEW EXAM: XR Chest, 1 View CLINICAL HISTORY: weak. TECHNIQUE: Frontal view of the chest. COMPARISON: Portable chest 03/04/2025 FINDINGS: Lungs: The rounded lung mass in the right lower lung zone is no longer distinctly identified with more diffuse airspace opacity now identified throughout the right lower lung zone. The left lung is well-aerated. Pleural space: No pleural effusion or pneumothorax. Heart: Unremarkable. No cardiomegaly. Mediastinum: No significant abnormality identified. The trachea is midline. Bones/joints: Degenerative changes of the shoulders. No acute fracture. IMPRESSION: The rounded lung mass in the right lower lung zone is no longer distinctly identified with more diffuse airspace opacity now identified throughout the right lower lung zone. This may represent advancing neoplasm versus developing coexisting right lower lung zone infection. Electronically signed by: Tom Godwin MD 05/25/25 23:39 PM This Code Status & VTE Plan Code Status Full code VTE Prophylaxis Plan VTE Prophylaxis will be ordered: Yes PG Care Time/CCT Total # of Minutes Spent Total Time Spent with Patient: Total time spent is greater than 50% in coordination of care (as documented) at patient's floor/unit and/or counseling patient: Coding Level of Care Code 02652 INT INP/OBS CARE 3/75MIN Diagnoses Postobstructive pneumonia J18.9 Lung mass R91.8 Primary hypertension I10 Hypertension type: primary hypertension (3) Hypertension Hypertension type: primary hypertension Qualified Code(s): I10 - Essential (primary) hypertension
[2025-05-26] MEDS: LACTATED RINGER'S 1,000 ML IV SCH (00:42)
--- NOTE | 2025-05-26 01:46 | CT Scan Report ---
EXAM: CT chest diagnostic wo con CLINICAL HISTORY: post obstructive RLL pneumonia TECHNIQUE: Contiguous axial images were obtained from the neck base through the upper abdomen without contrast. In addition, sagittal and coronal reconstructions were performed to potentially increase the sensitivity for the detection of disease. CT scan was performed according to ALARA (as low as reasonable achievable). COMPARISON: 02/17/2025 FINDINGS: Interval increase in soft tissue density with internal air foci and surrounding ground-glass opacities in right lower lobe, measures approximately 80 x 65 mm in current study versus 50 x 60 mm in prior study Interval unchanged paraseptal and centrilobular emphysematous changes in bilateral lung gunderson. Rest of the lungs are clear. The central airways are patent. There are no pleural effusions. No pneumothorax is seen. Evaluation of the mediastinum and galen is limited due to the lack of intravenous contrast. Interval increase in enlarged mediastinal lymph nodes, largest measuring approximately 11 mm in current study No axillary adenopathy is identified. The thyroid is unremarkable. The heart, aorta, and pulmonary arteries are of normal size and configuration. There are coronary artery and aortic atherosclerotic calcifications. No pericardial effusion is identified. Imaged portions of the upper abdomen are unremarkable. No aggressive appearing osseous lesions are identified. Degenerative changes in visualised spine IMPRESSION: Mild interval increase in size of soft tissue density with internal air foci and surrounding ground-glass opacities in right lower lobe. Interval increase in mediastinal lymphadenopathy. Interval unchanged paraseptal and centrilobular emphysematous changes in bilateral lung gunderson. Electronically signed by Tenzin Walton 05-26-2025 01:46 AM
[2025-05-26] MEDS ORDERED: INFLUENZA VACC TS2025-26(65y+)/PF (IIV3) 0.5mL Syr IM ONE (02:30)
[2025-05-26] MEDS: PIPERACILLIN/TAZOBACTAM 4.5 GM/100 ML BAG IV SCH (06:19)
[2025-05-26 06:39] LABS: Hematocrit (blood only) 28.5 % (42.0-52.0); Hemoglobin 9.7 g/dL (14.0-18.0); Immature Granulocytes # (auto) 0.09 K/uL (0.01-0.20); Immature Granulocytes % (auto) 0.7 %; Mean Corpuscular Hemoglobin 31.6 pg (25.0-34.0); Mean Corpuscular Volume 92.8 fL (80.0-100.0); Platelet Count 258 K/uL (130-400); RDW Standard Deviation 43.0 fL (36.4-46.3); Red Blood Count 3.07 M/uL (4.70-6.10); White Blood Count 12.02 K/ul (4.8-10.8)
[2025-05-26 07:06] LABS: Alanine Aminotransferase 6.0 U/L (7-52); Albumin Globulin Ratio 1.3 (0.9-2); Albumin Level 3.6 gm/dl (3.4-5.0); Alkaline Phosphatase 42.0 U/L (34-104); Anion Gap 7.0 (3-11); Bilirubin,Total 0.6 mg/dl (0.2-1.0); Blood Urea Nitrogen 18.0 mg/dl (6-23); Calcium 8.7 mg/dl (8.6-10.3); Carbon Dioxide 25.0 mmol/L (21-32); Chloride 108.0 mmol/L (98-107); Creatinine Clr Calc Pharmacy 56.6 ml/min; Globulin 2.8 gm/dl (2.5-4.0); Glucose 116.0 mg/dl (70-99(Fasting)); Potassium 4.0 mmol/L (3.5-5.1); Sodium 140.0 mmol/L (136-145); Total Protein 6.4 gm/dl (6.0-8.3)
[2025-05-26 07:10] LABS: INR 1.1 (0.9-1.1); Prothrombin Time 11.2 Seconds (9.0-12.0)
[2025-05-26] MEDS: ACETAMINOPHEN 325 MG TAB PO PRN (09:02)
[2025-05-26] MEDS: ATENOLOL 25 MG TABLET PO SCH (09:03)
[2025-05-26] MEDS: ADVANCED PROBIOTIC 625 MG CAPSULE PO SCH (09:03)
--- NOTE | 2025-05-26 10:12 | Pulmonary Consultation ---
Date of Consultation May 26, 2025 Assessment & Plan (1) Abnormal positron emission tomography (PET) scan: (2) Pulmonary cavitary lesion: (3) Hemoptysis, unspecified: (4) Pneumonia: Plan CT chest 05/26/2025 personally reviewed: Centrilobular and paraseptal emphysema appreciated bilaterally Right lower lobe cavitary lesion with surrounding ground glass opacity, no significant change compared to PET/CT done 04/22/2025 Minimal Mediastinal lymphadenopathy -- Cavitary lung mass with hemoptysis Going on for the last 2 months Patient just saw ENT, Dr Smith who on laryngoscopy did not find any signs of epistaxis but saw blood inclining more towards hemoptysis S/p bronchoscopy with EBUS 02/12/2025: Forceps biopsy showed rare atypical cells but no definitive carcinoma Station 10R, 7, 11R all negative for malignancy Micro from BAL as well as 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 Small hypermetabolic osseous lesion in the left ischium MRI brain 02/2025: Negative for any metastatic disease, chronic ischemic changes --Hemoptysis Likely secondary to above Monitor H&H --Ex-smoker >60 pack-year smoking history Quit at the age of 81 Encouraged to continue abstinence from smoking PFT 03/23/2025 personally reviewed: No obstructive lung dysfunction, insignificant bronchodilator response, mild air trapping, moderate decrease in DLCO FVC 3.37 L 100%, FEV1 2.36 L 101%, FEV1/FVC 70%, RV 111%, TLC 92%, RV/TLC 120%, DLCO 53%, DLCO/VA 76% --History of bladder cancer Did not need any treatment since 2009 Never needed chemo or radiation --History of lung cancer in sister who was a smoker Plan: Discussed the case with IR. They are planning to do an ischial lesion biopsy today I discussed with pathology as well post the biopsy, they saw some lymphocytes and have sent for flow The results will be back by . If the results are nonconclusive then the options for the patient would be CT-guided biopsy versus repeating the bronchoscopy Okay to continue with antibiotics for the time being I spent more than 75 minutes looking in the chart, images, discussing the plan of care with the patient, RN as well as primary team Please note the above document was generated using voice recognition software. It may contain grammatical, syntax or spelling errors.Any formal questions or concerns about the content, text or information contained within the body of this dictation should be directly addressed to the provider for clarification. History of Present Illness Attending Physician: Kenyatta Simms MD History of Present Illness 84-year-old male admitted to the hospital for generalized shaking Past medical history: GERD, hypertension, dyslipidemia, history of bladder cancer, last treatment 2009, no chemo or radiation Patient was last seen by me in the clinic on 04/24/2025 Patient was supposed to have biopsy of the ischial PET positive lesion and possibly lung tomorrow At the time of examination patient was sleeping comfortably He was saturating well on room air He said that overall when it comes to his breathing there is no significant change He still complaining of hemoptysis periodically. Denies any chest pain No unusual headache or blurry vision No fever or chills No night sweats, has lost approximately 5-7 pounds in the recent past No personal or family history of any autoimmune disease like lupus, sarcoid, Sjogren's, rheumatoid Social history:> [id number] smoking history, quit approximately at the age of 81, no alcohol, denies any illicit drug use. 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 No birds or poultry nearby Allergies: Seasonal Asthma: No personal or family history of Lung cancer: History of lung cancer in sister who was a smoker Allergies Allergy/AdvReac Type Severity Reaction Status Date / Time amoxicillin [From Augmentin] AdvReac Mild severe Verified 04/24/25 13:02 nausea clavulanic acid AdvReac Mild severe Verified 04/24/25 13:02 [From Augmentin] nausea Home Medications Medication Instructions Recorded Confirmed Type lactobacillus combination no.4 15 15,000 mmu cells PO DAILY 02/17/25 05/25/25 History billion cell capsule omeprazole 20 mg capsule,delayed 40 mg PO DAILY 02/17/25 05/25/25 History release amlodipine 10 mg tablet 10 mg PO QAM #90 tabs 03/16/25 05/25/25 Rx atorvastatin 10 mg tablet 10 mg PO HS #90 tabs 03/16/25 05/25/25 Rx atenolol 25 mg tablet 25 mg PO QAM #30 tabs 05/15/25 05/25/25 Rx Patient History Medical History History of bradycardia (02/18/25) Hypertension GERD (gastroesophageal reflux disease) Bleeding disorder Lung mass Enlarged prostate with lower urinary tract symptoms (LUTS) JAYLAN (generalized anxiety disorder) Dyslipidemia Chronic osteoarthritis Syncope Witnessed seizure-like activity (02/17/25) Melanoma in situ Tubular adenoma of colon Transitional cell carcinoma of bladder Family history of melanoma Decreased hearing Surgical History Hx of cataract extraction (2022) Hx of wisdom tooth extraction Hx of melanoma excision H/O colonoscopy History of hernia surgery History of bladder surgery (~1997) Family History Unknown Skin cancer Heart disease Diabetes Sister Breast cancer Lung cancer Denies family history of Ovarian cancer Prostate cancer Myocardial infarction Colorectal cancer Stroke Social History Smoking Status: Former smoker Tobacco Type: Cigarettes Age Started Using Tobacco: 16; Age Quit Using Tobacco: 81; packs per day: 1; Cigarettes Per Day: quit 30 years ago x 25 years- started smoking again x 1 year- stop 3 years; Second Hand Exposure: No; Do You Dip or Chew Tobacco: No; Hx Alcohol Use: No Hx Substance Use: No Preferred Language: Mosotho Communication Ability: Effective Visual Impairment: Limited Hearing Ability: Hard of Hearing Fusion Analyst Required: No Beliefs That Will Affect Care: None marital status: Current Living Situation: Spouse current occupational status: retired 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 How many Children do You have: 4 Feels Safe at Home: Yes Childhood Exposure to Second-Hand Smoke: Yes (thinks father did ) Diet: regular caffeine: Yes (coffee) during the past year weight has: remained stable Dental Care, Regularly: No Physical Activity Frequency: Does not Exercise Seatbelt Use: always Sunscreen Use: No Assistive Devices: Glasses Review of Systems 2 Review of Systems: All systems reviewed & are unremarkable except as noted in HPI & below Physical Exam 2 Physical Exam: Constitutional: No acute distress HEENT: EOMI, PERRLA Respiratory system: Decreased air entry bilaterally, more decreased on the right, no wheeze, rhonchi, positive crackles CVS: S1-S2 positive, no murmurs or gallops Abdomen: Soft, nontender, nondistended, positive bowel sounds x4 Extremities: +2 pulses bilaterally radialis/ dorsalis pedis, no cyanosis, no edema Neuro: Awake alert oriented x3 Psych: Normal mood and affect G/U: No Kwok Results & Data Results & Data Vital Signs (Past 12 Hours) Vital Signs Temp Pulse Pulse Resp BP BP Pulse Ox 05/26/25 07:42 38.4 C H 76 16 122/53 L 93 05/26/25 07:41 61 05/26/25 02:34 71 05/26/25 02:30 05/26/25 02:13 37.4 C 78 18 127/58 L 93 05/26/25 02:11 37.4 C 78 18 127/58 L 93 05/26/25 01:41 70 17 112/52 L 90 05/26/25 01:04 72 16 115/54 L 92 05/25/25 22:46 131/69 05/25/25 22:46 131/69 05/25/25 22:45 86 26 H 94 05/25/25 22:42 91 H 26 H 95 05/25/25 22:31 128/50 L 05/25/25 22:31 128/50 L 05/25/25 22:31 128/50 L 05/25/25 22:31 128/50 L 05/25/25 22:30 92 H 26 H 96 05/25/25 22:24 96 H 26 H 94 05/25/25 22:22 151/59 H 05/25/25 22:22 151/59 H 05/25/25 22:22 151/59 H 05/25/25 22:22 151/59 H O2 Del Method 05/26/25 07:42 Room Air 05/26/25 07:41 05/26/25 02:34 05/26/25 02:30 Room Air 05/26/25 02:13 Room Air 05/26/25 02:11 Room Air 05/26/25 01:41 Room Air 05/26/25 01:04 Room Air 05/25/25 22:46 05/25/25 22:46 05/25/25 22:45 05/25/25 22:42 05/25/25 22:31 05/25/25 22:31 05/25/25 22:31 05/25/25 22:31 05/25/25 22:30 05/25/25 22:24 05/25/25 22:22 05/25/25 22:22 05/25/25 22:22 05/25/25 22:22 Laboratory Results 05/26/25 05:46 05/26/25 05:46 PG Care Time/CCT Total # of Minutes Spent Total Time Spent with Patient: Total time spent is greater than 50% in coordination of care (as documented) at patient's floor/unit and/or counseling patient: Coding Level of Care Code 21478 INT INP/OBS CARE 3/75MIN Diagnoses Abnormal positron emission tomography (PET) scan R94.8 Pulmonary cavitary lesion J98.4 Hemoptysis, unspecified R04.2 Pneumonia J18.9
--- NOTE | 2025-05-26 14:07 | CT Scan Report ---
CT guided left ischial bone lesion core biopsy INDICATION: FDG avid left ischial bone lesion; lung mass PROCEDURE: Procedure and risks were explained. Informed consent was obtained. Final timeout was compl eted. The patient was placed prone on the CT exam table. The left gluteal region was prepped and drap ed in sterile fashion. 1% lidocaine was utilized for skin anesthesia. Utilizing CT guidance, an 11-gauge bone biopsy needle was advanced into the left ischio bone lesion. 1 core was obtained and given to the pathologist for review. The needle was removed and Band-Aid appl ied. The patient tolerated the procedure well. IMPRESSION: Left ischial bone lesion core biopsy as above. Performed, dictated, and signed by Tom Lewis PA-C; to be co-signed by Dr. Neri Vizcarra. Electronically signed by: Neri Vizcarra M.D. 05/26/2025 2:28 PM
[2025-05-26 15:30] LABS: Appearance Urine Clear (Clear); Bacteria Urine Automated None Seen (None Seen); Cast Urine Automated 0-2 /lpf (0-2); Epithelial Cell Urine Auto 0-2 /hpf (0-2); Glucose Urine UA Negative (Negative); RBC Urine Automated 0-2 /hpf (0-2); WBC Urine Automated 0-5 /hpf (0-5)
--- NOTE | 2025-05-26 16:11 | Hospitalist Progress Note ---
Date of Service May 26, 2025 Assessment & Plan (1) Postobstructive pneumonia: (2) Lung mass: (3) Hypertension: Plan 84-year-old man with a right lower lobe lung mass which has been under workup since this summer who was admitted with postobstructive pneumonia. Initially thought to be probably infectious and took 3 weeks of antibiotics but saw no improvement. PET/CT a month ago with increase in hypermetabolic activity of the right lower lobe mass there was also a left ischial bony lesion and a pretracheal lymph node with increased uptake. he was scheduled for bronc and IR biopsy of the left ischial lesion this week. # Right lower lobe postobstructive pneumonia/right lower lobe lung mass- continue pip-tazo, MRSA nares negative defer MRSA coverage DuoNebs every 2 hours as needed Nasal cannula oxygen, titrate to keep pulse ox around 94% discussed with plasterer journeyman Dr. Moore and also with IR provider today he underwent IR biopsy of the left ischial bone lesion on 05/26, pathology is pending may undergo further procedure later in the week or Sunday according to plasterer journeyman Upper extremity shakes/tremors- seems to have been related to infection and has resolved Hypertension- Continue atenolol and amlodipine with hold parameters Hyperlipidemia- Continue atorvastatin start DVT prophylaxis with enoxaparin Admission and Anticipated Discharge Date Admission Date: May 26, 2025 Subjective Mr. Phillips notes that his coughing is decreased and his sputum volume and purulence improved today he does not have any chest pain or shortness of breath he did have fever twice today he underwent IR biopsy of the bony abnormality on his ischial tuberosity earlier today Physical Exam Physical Exam: Last 24h vitals reviewed GEN: no acute distress, sitting in bed eating lunch appears younger than his age HEENT: pupils equal, sclerae anicteric, moist MM RESP: normal WOB, cough present, diminished in bases CV: reg no mrg ABD: nondistended : no robles SKIN: warm and dry, no generalized rashes NEURO: AOx person, place, and situation. Face symmetric, speech normal, moves 4 ext spontaneously and equally Results & Data Results & Data Vital Signs (Past 12 Hours) Vital Signs Temp Pulse Pulse Resp BP BP Pulse Ox 05/26/25 14:27 36.8 C 74 16 110/55 L 92 05/26/25 14:08 37.1 C 71 16 119/60 91 05/26/25 13:41 37.5 C 67 18 121/62 95 05/26/25 13:00 38.0 C H 68 18 120/61 95 05/26/25 12:33 37.3 C 67 16 125/64 92 05/26/25 12:16 37.4 C 62 16 117/53 L 91 05/26/25 10:23 37.0 C 05/26/25 10:00 05/26/25 07:42 38.4 C H 76 16 122/53 L 93 05/26/25 07:41 61 O2 Del Method 05/26/25 14:27 Room Air 05/26/25 14:08 Room Air 05/26/25 13:41 Room Air 05/26/25 13:00 Room Air 05/26/25 12:33 Room Air 05/26/25 12:16 Room Air 05/26/25 10:23 05/26/25 10:00 Room Air 05/26/25 07:42 Room Air 05/26/25 07:41 Laboratory Results white blood count improved from 17 down to 12, hemoglobin 9.7 Sodium 140 potassium 4.0 creatinine 0.9 Procalcitonin last night was 0.04 MRSA nares swab was negative COVID/flu/RSV was negative PG Care Time/CCT Total # of Minutes Spent Total Time Spent with Patient: Total time spent is greater than 50% in coordination of care (as documented) at patient's floor/unit and/or counseling patient: Coding Level of Care Code 00670 SUB INP/OBS CARE 3/50MIN Diagnoses Postobstructive pneumonia J18.9 Lung mass R91.8 Primary hypertension I10 Hypertension type: primary hypertension (3) Hypertension Hypertension type: primary hypertension Qualified Code(s): I10 - Essential (primary) hypertension
[2025-05-26] MEDS: ONDANSETRON INJ 2 MG/ML 2 ML VIAL IV PRN (20:30)
[2025-05-26] MEDS: ENOXAPARIN INJ 40 MG/0.4 ML SYR SQ SCH (20:31)
[2025-05-26] MEDS: ATORVASTATIN 10 MG TAB PO SCH (20:31)
--- NOTE | 2025-05-27 09:03 | Pulmonology Progress Note ---
Date of Service May 27, 2025 Assessment & Plan (1) Abnormal positron emission tomography (PET) scan: (2) Pulmonary cavitary lesion: (3) Hemoptysis, unspecified: (4) Pneumonia: Plan CT chest 05/26/2025 personally reviewed: Centrilobular and paraseptal emphysema appreciated bilaterally Right lower lobe cavitary lesion with surrounding ground glass opacity, no significant change compared to PET/CT done 04/22/2025 Minimal Mediastinal lymphadenopathy -- Cavitary lung mass with hemoptysis Going on for the last 2 months Patient just saw ENT, Dr Smith who on laryngoscopy did not find any signs of epistaxis but saw blood inclining more towards hemoptysis S/p ischial bone biopsy 05/26/2025 by IR, follow-up cytology S/p bronchoscopy with EBUS 02/12/2025: Forceps biopsy showed rare atypical cells but no definitive carcinoma Station 10R, 7, 11R all negative for malignancy Micro from BAL as well as 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 Small hypermetabolic osseous lesion in the left ischium MRI brain 02/2025: Negative for any metastatic disease, chronic ischemic changes --Hemoptysis Likely secondary to above Monitor H&H --Ex-smoker >60 pack-year smoking history Quit at the age of 81 Encouraged to continue abstinence from smoking PFT 03/23/2025 personally reviewed: No obstructive lung dysfunction, insignificant bronchodilator response, mild air trapping, moderate decrease in DLCO FVC 3.37 L 100%, FEV1 2.36 L 101%, FEV1/FVC 70%, RV 111%, TLC 92%, RV/TLC 120%, DLCO 53%, DLCO/VA 76% --History of bladder cancer Did not need any treatment since 2009 Never needed chemo or radiation --History of lung cancer in sister who was a smoker Plan: S/p ischial bone biopsy 05/26/2025 by IR, follow-up cytology I discussed with pathology as well post the biopsy, they saw some lymphocytes and have sent for flow The results will be back by . If the results are nonconclusive then the options for the patient would be CT-guided biopsy I did offer repeating bronchoscopy to the patient as well as patient's but the patient would prefer a CT-guided biopsy given that the initial bronchoscopy negative for malignancy Case discussed with primary team Please note the above document was generated using voice recognition software. It may contain grammatical, syntax or spelling errors.Any formal questions or concerns about the content, text or information contained within the body of this dictation should be directly addressed to the provider for clarification. Admission and Anticipated Discharge Date Admission Date: May 26, 2025 Subjective Patient seen and examined at bedside. No acute distress, no adverse events overnight He was saturating 94% on room air Stated that his coughing has decreased, bringing up less phlegm Minimal hemoptysis Denies any chest pain Therapy tired No nausea or vomiting He did complain of pain at the site of the bone biopsy from yesterday Review of Systems 2 Review of Systems: All systems reviewed & are unremarkable except as noted in Subjective Physical Exam Physical Exam: Constitutional: No acute distress HEENT: EOMI, PERRLA Respiratory system: Decreased air entry bilaterally, more decreased on the right, no wheeze, rhonchi, positive crackles CVS: S1-S2 positive, no murmurs or gallops Abdomen: Soft, nontender, nondistended, positive bowel sounds x4 Extremities: +2 pulses bilaterally radialis/ dorsalis pedis, no cyanosis, no edema Neuro: Awake alert oriented x3 Psych: Normal mood and affect G/U: No Kwok Skin: no rashes, warm and dry Lymphatic: no cervical or axillary lymphadenopathy Results & Data Results & Data Vital Signs (Past 12 Hours) Vital Signs Temp Pulse Pulse Resp BP Pulse Ox O2 Del Method 05/27/25 08:13 Room Air 05/27/25 07:55 36.8 C 90 18 113/49 L 90 Room Air 05/27/25 04:33 38.0 C H 72 20 115/77 90 Room Air 05/27/25 00:12 37.5 C 74 20 110/57 L 92 Room Air 05/26/25 21:56 72 PG Care Time/CCT Total # of Minutes Spent Total Time Spent with Patient: Total time spent is greater than 50% in coordination of care (as documented) at patient's floor/unit and/or counseling patient: Coding Level of Care Code 43002 SUB INP/OBS CARE MIN Diagnoses Abnormal positron emission tomography (PET) scan R94.8 Pulmonary cavitary lesion J98.4 Hemoptysis, unspecified R04.2 Pneumonia J18.9
[2025-05-27 09:32] LABS: Hematocrit (blood only) 28.6 % (42.0-52.0); Hemoglobin 9.7 g/dL (14.0-18.0); Immature Granulocytes # (auto) 0.10 K/uL (0.01-0.20); Immature Granulocytes % (auto) 0.7 %; Mean Corpuscular Hemoglobin 31.2 pg (25.0-34.0); Mean Corpuscular Volume 92.0 fL (80.0-100.0); Platelet Count 258 K/uL (130-400); RDW Standard Deviation 42.3 fL (36.4-46.3); Red Blood Count 3.11 M/uL (4.70-6.10); White Blood Count 13.79 K/ul (4.8-10.8)
[2025-05-27 09:49] LABS: Alanine Aminotransferase 9.0 U/L (7-52); Albumin Globulin Ratio 1.1 (0.9-2); Albumin Level 3.4 gm/dl (3.4-5.0); Alkaline Phosphatase 43.0 U/L (34-104); Anion Gap 9.0 (3-11); Bilirubin,Total 0.9 mg/dl (0.2-1.0); Blood Urea Nitrogen 19.0 mg/dl (6-23); Calcium 8.6 mg/dl (8.6-10.3); Carbon Dioxide 22.0 mmol/L (21-32); Chloride 103.0 mmol/L (98-107); Creatinine Clr Calc Pharmacy 50.2 ml/min; Globulin 3.0 gm/dl (2.5-4.0); Glucose 142.0 mg/dl (70-99(Fasting)); Magnesium 1.8 mg/dl (1.7-2.4); Potassium 3.6 mmol/L (3.5-5.1); Sodium 134.0 mmol/L (136-145); Total Protein 6.4 gm/dl (6.0-8.3)
[2025-05-27 09:58] LABS: INR 1.1 (0.9-1.1); Partial Thromboplastin Time 32 Seconds (21-31); Prothrombin Time 11.8 Seconds (9.0-12.0)
[2025-05-27] MEDS: KETOROLAC TROMETHAMINE 15 MG/ML VIAL IV PRN (11:21)
--- NOTE | 2025-05-27 11:38 | Hospitalist Progress Note ---
Date of Service May 27, 2025 Assessment & Plan (1) Postobstructive pneumonia: (2) Lung mass: (3) Hypertension: Plan 84-year-old man with a right lower lobe lung mass which has been under workup since this summer who was admitted with postobstructive pneumonia. Initially thought to be probably infectious and took 3 weeks of antibiotics but saw no improvement. PET/CT a month ago with increase in hypermetabolic activity of the right lower lobe mass there was also a left ischial bony lesion and a pretracheal lymph node with increased uptake. he was scheduled for bronc and IR biopsy of the left ischial lesion this week. # 1. Cavitary lung mass with hemoptysis and postobstructive pneumonia: Patient has been having ongoing hemoptysis for the past couple of months. CT showed evidence of a cavitary lesion. Of note, patient had bronchoscopy and EBUS in February 2025. Biopsy showed some rare atypical cells but no definitive carcinoma. BAL was positive for Corynebacterium for which the patient completed a course of antibiotics for 4 weeks. PET scan done in April 22, 2025 shows significant uptake in the right lower cavitary lesion. Ball Fringe Machine Operator on board, patient will possibly have another bronchoscopy on or Sunday. PET scan also picked up some lesion in the ischial area for which biopsy has been done, pathology pending Continue IV Zosyn Upper extremity shakes/tremors- seems to have been related to infection and has resolved Hypertension- Continue atenolol and amlodipine with hold parameters Hyperlipidemia- Continue atorvastatin Back pain: Patient complaining of back pain We optimize his pain medications. start DVT prophylaxis with enoxaparin Admission and Anticipated Discharge Date Admission Date: May 26, 2025 Subjective Patient seen and examined, still complaining of back pain Review of Systems Review of Systems: The patient is awake, alert and oriented 3, well developed and well nourished, normocephalic and atraumatic, lying in bed and in no acute distress. HEENT--PERRL, EOMI, mucous membranes and oropharynx mildly dry Neck--supple. No JVD. No bruits. Thyroid normal, trachea midline, no adenopathy. Heart--normal S1 and S2. No murmurs, rubs or gallops. Lungs--clear bilaterally, no respiratory distress, no accessory muscle use. Abdomen--normal bowel sounds and soft. Extremities--no cyanosis or clubbing. No edema. Dermatologic--normal skin turgor, normal color, no abnormal lymph nodes, no rash. Neurologic--cranial nerves II through XII grossly intact. Rheumatologic--normal range of motion. Psychiatric--normal affect. Results & Data Results & Data Vital Signs (Past 12 Hours) Vital Signs Temp Pulse Resp BP Pulse Ox O2 Del Method O2 Flow Rate 05/27/25 11:27 98.2 F 73 20 115/61 93 Nasal Cannula 2 05/27/25 08:13 Room Air 05/27/25 07:55 98.2 F 90 18 113/49 L 90 Room Air 05/27/25 04:33 100.4 F H 72 20 115/77 90 Room Air 05/27/25 00:12 99.5 F 74 20 110/57 L 92 Room Air PG Care Time/CCT Total # of Minutes Spent Total Time Spent with Patient: Total time spent is greater than 50% in coordination of care (as documented) at patient's floor/unit and/or counseling patient: Coding Level of Care Code 55380 SUB INP/OBS CARE 2/35MIN Diagnoses Postobstructive pneumonia J18.9 Lung mass R91.8 Primary hypertension I10 Hypertension type: primary hypertension Time Spent (min) 35 (3) Hypertension Hypertension type: primary hypertension Qualified Code(s): I10 - Essential (primary) hypertension
[2025-05-28 06:29] LABS: Hematocrit (blood only) 27.9 % (42.0-52.0); Hemoglobin 9.6 g/dL (14.0-18.0); Immature Granulocytes # (auto) 0.10 K/uL (0.01-0.20); Immature Granulocytes % (auto) 0.8 %; Mean Corpuscular Hemoglobin 31.6 pg (25.0-34.0); Mean Corpuscular Volume 91.8 fL (80.0-100.0); Platelet Count 270 K/uL (130-400); RDW Standard Deviation 42.0 fL (36.4-46.3); Red Blood Count 3.04 M/uL (4.70-6.10); White Blood Count 12.46 K/ul (4.8-10.8)
[2025-05-28 06:51] LABS: Alanine Aminotransferase 11.0 U/L (7-52); Albumin Globulin Ratio 1.1 (0.9-2); Albumin Level 3.3 gm/dl (3.4-5.0); Alkaline Phosphatase 46.0 U/L (34-104); Anion Gap 8.0 (3-11); Bilirubin,Total 0.7 mg/dl (0.2-1.0); Blood Urea Nitrogen 22.0 mg/dl (6-23); Calcium 8.7 mg/dl (8.6-10.3); Carbon Dioxide 24.0 mmol/L (21-32); Chloride 103.0 mmol/L (98-107); Creatinine Clr Calc Pharmacy 48.8 ml/min; Globulin 3.0 gm/dl (2.5-4.0); Glucose 112.0 mg/dl (70-99(Fasting)); Magnesium 2.0 mg/dl (1.7-2.4); Potassium 3.6 mmol/L (3.5-5.1); Sodium 135.0 mmol/L (136-145); Total Protein 6.3 gm/dl (6.0-8.3)
[2025-05-28 07:04] LABS: INR 1.1 (0.9-1.1); Partial Thromboplastin Time 33 Seconds (21-31); Prothrombin Time 11.3 Seconds (9.0-12.0)
--- NOTE | 2025-05-28 07:37 | Pulmonology Progress Note ---
Date of Service May 28, 2025 Assessment & Plan (1) Abnormal positron emission tomography (PET) scan: (2) Pulmonary cavitary lesion: (3) Hemoptysis, unspecified: (4) Pneumonia: Plan CT chest 05/26/2025 personally reviewed: Centrilobular and paraseptal emphysema appreciated bilaterally Right lower lobe cavitary lesion with surrounding ground glass opacity, no significant change compared to PET/CT done 04/22/2025 Minimal Mediastinal lymphadenopathy -- Cavitary lung mass with hemoptysis Going on for the last 2 months Patient just saw ENT, Dr Smith who on laryngoscopy did not find any signs of epistaxis but saw blood inclining more towards hemoptysis S/p ischial bone biopsy 05/26/2025 by IR, follow-up cytology S/p bronchoscopy with EBUS 02/12/2025: Forceps biopsy showed rare atypical cells but no definitive carcinoma Station 10R, 7, 11R all negative for malignancy Micro from BAL as well as 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 Small hypermetabolic osseous lesion in the left ischium MRI brain 02/2025: Negative for any metastatic disease, chronic ischemic changes --Hemoptysis Likely secondary to above Monitor H&H --Ex-smoker >60 pack-year smoking history Quit at the age of 81 Encouraged to continue abstinence from smoking PFT 03/23/2025 personally reviewed: No obstructive lung dysfunction, insignificant bronchodilator response, mild air trapping, moderate decrease in DLCO FVC 3.37 L 100%, FEV1 2.36 L 101%, FEV1/FVC 70%, RV 111%, TLC 92%, RV/TLC 120%, DLCO 53%, DLCO/VA 76% --History of bladder cancer Did not need any treatment since 2009 Never needed chemo or radiation --History of lung cancer in sister who was a smoker Plan: S/p ischial bone biopsy 05/26/2025 by IR, follow-up cytology Unsure why the patient was started on oxygen. I did discuss the case with RN I advised her to take the patient off oxygen if his oxygen saturation stays above 90 then he does not need oxygen I discussed with pathology as well post the biopsy, they saw some lymphocytes and have sent for flow The results will be back by . If the results are nonconclusive then the options for the patient would be CT-guided biopsy I did offer repeating bronchoscopy to the patient as well as patient's but the patient would prefer a CT-guided biopsy given that the initial bronchoscopy negative for malignancy Case discussed with primary team Please note the above document was generated using voice recognition software. It may contain grammatical, syntax or spelling errors.Any formal questions or concerns about the content, text or information contained within the body of this dictation should be directly addressed to the provider for clarification. Admission and Anticipated Discharge Date Admission Date: May 26, 2025 Subjective Patient seen and examined at bedside. No acute distress, no adverse events overnight His right hip pain is much better compared to yesterday His cough is improving Still coughing up a little bit of blood. He was on 4 L nasal cannula and saturating 97%. I went down to 2 L. Denied any chest pain No abdominal pain Appetite is poor Review of Systems 2 Review of Systems: All systems reviewed & are unremarkable except as noted in Subjective Physical Exam 2 Physical Exam: Constitutional: No acute distress HEENT: EOMI, PERRLA Respiratory system: Decreased air entry bilaterally, more decreased on the right, no wheeze, rhonchi, positive crackles right side CVS: S1-S2 positive, no murmurs or gallops Abdomen: Soft, nontender, nondistended, positive bowel sounds x4 Extremities: +2 pulses bilaterally radialis/ dorsalis pedis, no cyanosis, no edema Neuro: Awake alert oriented x3 Psych: Normal mood and affect G/U: No Kwok Skin: no rashes, warm and dry Lymphatic: no cervical or axillary lymphadenopathy Results & Data Results & Data Vital Signs (Past 12 Hours) Vital Signs Temp Pulse Pulse Resp BP Pulse Ox O2 Del Method 05/28/25 07:23 62 05/28/25 03:03 36.5 C 67 18 118/56 L 96 Nasal Cannula 05/27/25 22:28 36.8 C 69 16 120/61 94 Nasal Cannula 05/27/25 21:33 59 L 05/27/25 21:27 36.7 C 05/27/25 19:45 Nasal Cannula O2 Flow Rate 05/28/25 07:23 05/28/25 03:03 2 05/27/25 22:28 2 05/27/25 21:33 05/27/25 21:27 05/27/25 19:45 2 Laboratory Results 05/28/25 05:51 05/28/25 05:51 PG Care Time/CCT Total # of Minutes Spent Total Time Spent with Patient: Total time spent is greater than 50% in coordination of care (as documented) at patient's floor/unit and/or counseling patient: Coding Level of Care Code 56951 SUB INP/OBS CARE 2/35MIN Diagnoses Abnormal positron emission tomography (PET) scan R94.8 Pulmonary cavitary lesion J98.4 Hemoptysis, unspecified R04.2 Pneumonia J18.9
--- NOTE | 2025-05-28 11:47 | Hospitalist Progress Note ---
Date of Service May 28, 2025 Assessment & Plan (1) Postobstructive pneumonia: (2) Lung mass: (3) Hypertension: Plan 84-year-old man with a right lower lobe lung mass which has been under workup since this summer who was admitted with postobstructive pneumonia. Initially thought to be probably infectious and took 3 weeks of antibiotics but saw no improvement. PET/CT a month ago with increase in hypermetabolic activity of the right lower lobe mass there was also a left ischial bony lesion and a pretracheal lymph node with increased uptake. he was scheduled for bronc and IR biopsy of the left ischial lesion this week. # 1. Cavitary lung mass with hemoptysis and postobstructive pneumonia: Patient has been having ongoing hemoptysis for the past couple of months. CT showed evidence of a cavitary lesion. Of note, patient had bronchoscopy and EBUS in February 2025. Biopsy showed some rare atypical cells but no definitive carcinoma. BAL was positive for Corynebacterium for which the patient completed a course of antibiotics for 4 weeks. PET scan done in April 22, 2025 shows significant uptake in the right lower cavitary lesion. PET scan also picked up some lesion in the ischial area for which biopsy has been done, pathology pending Web Site Admin on board, patient will possibly have CT-guided biopsy on or Sunday,If the pathology of the ischial biopsy is inconclusive Continue IV Zosyn For now Upper extremity shakes/tremors- seems to have been related to infection and has resolved Hypertension- Continue atenolol and amlodipine with hold parameters Hyperlipidemia- Continue atorvastatin Back pain: Patient complaining of back pain We optimize his pain medications. start DVT prophylaxis with enoxaparin Admission and Anticipated Discharge Date Admission Date: May 26, 2025 Subjective Patient seen and examined this morning, says the hip pain is much improved following better pain control Review of Systems Review of Systems: All systems reviewed are negative, apart from the ones contained in the history. Physical Exam Physical Exam: The patient is awake, alert and oriented 3, well developed and well nourished, normocephalic and atraumatic, lying in bed and in no acute distress. HEENT--PERRL, EOMI, mucous membranes and oropharynx mildly dry Neck--supple. No JVD. No bruits. Thyroid normal, trachea midline, no attila nopathy. Heart--normal S1 and S2. No murmurs, rubs or gallops. Lungs--Reduced and on auscultation Abdomen--normal bowel sounds and soft. Extremities--no cyanosis or clubbing. No edema. Dermatologic--normal skin turgor, normal color, no abnormal lymph nodes, no rash. Neurologic--cranial nerves II through XII grossly intact. Rheumatologic--normal range of motion. Psychiatric--normal affect. Results & Data Results & Data Vital Signs (Past 12 Hours) Vital Signs Temp Pulse Pulse Resp BP Pulse Ox O2 Del Method 05/28/25 08:00 Nasal Cannula 05/28/25 07:38 97.9 F 80 18 127/50 L 97 Nasal Cannula 05/28/25 07:23 62 05/28/25 03:03 97.7 F 67 18 118/56 L 96 Nasal Cannula O2 Flow Rate 05/28/25 08:00 2 05/28/25 07:38 4 05/28/25 07:23 05/28/25 03:03 2 PG Care Time/CCT Total # of Minutes Spent Total Time Spent with Patient: Total time spent is greater than 50% in coordination of care (as documented) at patient's floor/unit and/or counseling patient: Coding Level of Care Code 30494 SUB INP/OBS CARE 2/35MIN Diagnoses Postobstructive pneumonia J18.9 Lung mass R91.8 Primary hypertension I10 Hypertension type: primary hypertension Time Spent (min) 35 (3) Hypertension Hypertension type: primary hypertension Qualified Code(s): I10 - Essential (primary) hypertension
--- NOTE | 2025-05-28 22:20 | Electrocardiogram Report ---
Test Reason : Blood Pressure : */* mmHG Vent. Rate : 103 BPM Atrial Rate : 103 BPM P-R Int : 124 ms QRS Dur : 70 ms QT Int : 334 ms P-R-T Axes : 107 65 79 degrees QTcB Int : 437 ms Poor data quality, interpretation may be adversely affected Sinus tachycardia with Premature supraventricular complexes Nonspecific ST and T wave abnormality Abnormal ECG When compared with ECG of 17-Feb-2025 15:10, Premature supraventricular complexes are now Present Vent. rate has increased by 45 bpm Criteria for Inferior infarct are no longer Present Confirmed by Diaz Gambino ([id number] on 05/28/2025 10:19:32 PM Referred By: REFERRED SELF Confirmed By: Diaz Gambino
[2025-05-29 06:25] LABS: Hematocrit (blood only) 24.0 % (42.0-52.0); Hemoglobin 8.4 g/dL (14.0-18.0); Mean Corpuscular Hemoglobin 31.6 pg (25.0-34.0); Mean Corpuscular Volume 90.2 fL (80.0-100.0); Platelet Count 300 K/uL (130-400); RDW Standard Deviation 40.6 fL (36.4-46.3); Red Blood Count 2.66 M/uL (4.70-6.10); White Blood Count 11.16 K/ul (4.8-10.8)
[2025-05-29 06:45] LABS: Anion Gap 9.0 (3-11); Blood Urea Nitrogen 20.0 mg/dl (6-23); Calcium 8.6 mg/dl (8.6-10.3); Carbon Dioxide 24.0 mmol/L (21-32); Chloride 103.0 mmol/L (98-107); Creatinine Clr Calc Pharmacy 54.8 ml/min; Glucose 119.0 mg/dl (70-99(Fasting)); Magnesium 2.0 mg/dl (1.7-2.4); Potassium 3.5 mmol/L (3.5-5.1); Sodium 136.0 mmol/L (136-145)
[2025-05-29 06:57] LABS: Partial Thromboplastin Time 33 Seconds (21-31)
--- NOTE | 2025-05-29 07:20 | Pulmonology Progress Note ---
Date of Service May 29, 2025 Assessment & Plan (1) Abnormal positron emission tomography (PET) scan: (2) Pulmonary cavitary lesion: (3) Hemoptysis, unspecified: (4) Pneumonia: Plan CT chest 05/26/2025 personally reviewed: Centrilobular and paraseptal emphysema appreciated bilaterally Right lower lobe cavitary lesion with surrounding ground glass opacity, no significant change compared to PET/CT done 04/22/2025 Minimal Mediastinal lymphadenopathy -- Cavitary lung mass with hemoptysis Going on for the last 2 months Patient just saw ENT, Dr Smith who on laryngoscopy did not find any signs of epistaxis but saw blood inclining more towards hemoptysis S/p ischial bone biopsy 05/26/2025 by IR, follow-up cytology S/p bronchoscopy with EBUS 02/12/2025: Forceps biopsy showed rare atypical cells but no definitive carcinoma Station 10R, 7, 11R all negative for malignancy Micro from BAL as well as 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 Small hypermetabolic osseous lesion in the left ischium MRI brain 02/2025: Negative for any metastatic disease, chronic ischemic changes --Hemoptysis Likely secondary to above Monitor H&H --Ex-smoker >60 pack-year smoking history Quit at the age of 81 Encouraged to continue abstinence from smoking PFT 03/23/2025 personally reviewed: No obstructive lung dysfunction, insignificant bronchodilator response, mild air trapping, moderate decrease in DLCO FVC 3.37 L 100%, FEV1 2.36 L 101%, FEV1/FVC 70%, RV 111%, TLC 92%, RV/TLC 120%, DLCO 53%, DLCO/VA 76% --History of bladder cancer Did not need any treatment since 2009 Never needed chemo or radiation --History of lung cancer in sister who was a smoker Plan: S/p ischial bone biopsy 05/26/2025 by IR, follow-up final cytology I discussed with Dr Melgoza, they saw some lymphocytes and have sent for flow which showed monoclonal B cells. The ischial lesion could be incidental in this case. Given the cavitary lesion in the lung it will not be a usual presentation for lymphoma. Case discussed with IR, s/p CT guided biopsy of the right lung I did offer repeating bronchoscopy to the patient as well as patient's but the patient would prefer a CT-guided biopsy given that the initial bronchoscopy negative for malignancy Case discussed with primary team, nurse as well as daughter at bedside Please note the above document was generated using voice recognition software. It may contain grammatical, syntax or spelling errors.Any formal questions or concerns about the content, text or information contained within the body of this dictation should be directly addressed to the provider for clarification. Admission and Anticipated Discharge Date Admission Date: May 26, 2025 Subjective Patient seen and examined at bedside. No acute distress, not RASS events overnight Patient's daughter was in the room He just had the biopsy of the right lung CT-guided today Denies any significant discomfort when it comes to his chest Still coughing up little bit of blood No chest pain No headache Appetite is still poor Review of Systems 2 Review of Systems: All systems reviewed & are unremarkable except as noted in Subjective Physical Exam 2 Physical Exam: Constitutional: No acute distress HEENT: EOMI, PERRLA Respiratory system: Decreased air entry bilaterally, more decreased on the right, no wheeze, rhonchi, positive crackles right side CVS: S1-S2 positive, no murmurs or gallops Abdomen: Soft, nontender, nondistended, positive bowel sounds x4 Extremities: +2 pulses bilaterally radialis/ dorsalis pedis, no cyanosis, no edema Neuro: Awake alert oriented x3 Psych: Normal mood and affect G/U: No Kwok Skin: no rashes, warm and dry Lymphatic: no cervical or axillary lymphadenopathy Results & Data Results & Data Vital Signs (Past 12 Hours) Vital Signs Temp Pulse Pulse Resp BP Pulse Ox O2 Del Method 05/28/25 23:08 37.3 C 77 16 120/55 L 95 Nasal Cannula 05/28/25 21:38 75 05/28/25 20:05 36.9 C 72 18 132/60 93 Nasal Cannula 05/28/25 19:45 Nasal Cannula O2 Flow Rate 05/28/25 23:08 2 05/28/25 21:38 05/28/25 20:05 2 05/28/25 19:45 2 Laboratory Results 05/29/25 05:27 05/29/25 05:27 PG Care Time/CCT Total # of Minutes Spent Total Time Spent with Patient: Total time spent is greater than 50% in coordination of care (as documented) at patient's floor/unit and/or counseling patient: Coding Level of Care Code 64383 SUB INP/OBS CARE 2/35MIN Diagnoses Abnormal positron emission tomography (PET) scan R94.8 Pulmonary cavitary lesion J98.4 Hemoptysis, unspecified R04.2 Pneumonia J18.9
--- NOTE | 2025-05-29 11:24 | Hospitalist Progress Note ---
Date of Service May 29, 2025 Assessment & Plan (1) Postobstructive pneumonia: (2) Lung mass: (3) Hypertension: Plan 84-year-old man with a right lower lobe lung mass which has been under workup since this summer who was admitted with postobstructive pneumonia. Initially thought to be probably infectious and took 3 weeks of antibiotics but saw no improvement. PET/CT a month ago with increase in hypermetabolic activity of the right lower lobe mass there was also a left ischial bony lesion and a pretracheal lymph node with increased uptake. he was scheduled for bronc and IR biopsy of the left ischial lesion this week. # 1. Cavitary lung mass with hemoptysis and postobstructive pneumonia: Patient has been having ongoing hemoptysis for the past couple of months. CT showed evidence of a cavitary lesion. Of note, patient had bronchoscopy and EBUS in February 2025. Biopsy showed some rare atypical cells but no definitive carcinoma. BAL was positive for Corynebacterium for which the patient completed a course of antibiotics for 4 weeks. PET scan done in April 22, 2025 shows significant uptake in the right lower cavitary lesion. PET scan also picked up some lesion in the ischial area for which biopsy has been done, pathology pending Banking Pin Adjuster on board, he is now s/p CT-guided lung biopsy today, pathology pending Continue IV Zosyn For now Transition to PO antibiotics upon discharge to rehab Upper extremity shakes/tremors- seems to have been related to infection and has resolved Hypertension- Continue atenolol and amlodipine with hold parameters Hyperlipidemia- Continue atorvastatin Back pain: Patient complaining of back pain We optimize his pain medications. start DVT prophylaxis with enoxaparin Disposition: Will likely benefit from rehab, will consult PT/OT Admission and Anticipated Discharge Date Admission Date: May 26, 2025 Subjective Patient seen and examined this morning, feels very weak, he went for CT guided biopsy of the lung this morning Review of Systems Review of Systems: All systems reviewed are negative, apart from the ones contained in the history. Physical Exam Physical Exam: The patient is awake, alert and oriented 3, well developed and well nourished, normocephalic and atraumatic, lying in bed and in no acute distress. HEENT--PERRL, EOMI, mucous membranes and oropharynx mildly dry Neck--supple. No JVD. No bruits. Thyroid normal, trachea midline, no adenopathy. Heart--normal S1 and S2. No murmurs, rubs or gallops. Lungs--Reduced and on auscultation Abdomen--normal bowel sounds and soft. Extremities--no cyanosis or clubbing. No edema. Dermatologic--normal skin turgor, normal color, no abnormal lymph nodes, no rash. Neurologic--cranial nerves II through XII grossly intact. Rheumatologic--normal range of motion. Psychiatric--normal affect. Results & Data Results & Data Vital Signs (Past 12 Hours) Vital Signs Temp Pulse Pulse Resp BP Pulse Ox O2 Del Method 05/29/25 11:07 99.0 F 83 18 127/58 L 92 Nasal Cannula 05/29/25 08:03 99.7 F H 82 20 112/60 94 Nasal Cannula 05/29/25 07:28 80 O2 Flow Rate 05/29/25 11:07 1 05/29/25 08:03 2 05/29/25 07:28 PG Care Time/CCT Total # of Minutes Spent Total Time Spent with Patient: Total time spent is greater than 50% in coordination of care (as documented) at patient's floor/unit and/or counseling patient: Coding Level of Care Code 80994 SUB INP/OBS CARE 2/35MIN Diagnoses Postobstructive pneumonia J18.9 Lung mass R91.8 Primary hypertension I10 Hypertension type: primary hypertension Time Spent (min) 35 (3) Hypertension Hypertension type: primary hypertension Qualified Code(s): I10 - Essential (primary) hypertension
--- NOTE | 2025-05-29 12:34 | CT Scan Report ---
CT-guided right lung mass core biopsy INDICATION: Right lower lobe lung mass PROCEDURE: Procedure and risks were explained. Informed consent was obtained. Final timeout was compl eted. The patient was placed in a left decubitus position on the CT exam table. The right lateral tho rax was prepped and draped in sterile fashion. 1% lidocaine was utilized for skin anesthesia. The pat ient received 25 mcg fentanyl IV. Utilizing CT guidance, a 19-gauge coaxial needle was advanced since the right lower lobe lung mass. A 20-gauge core biopsy needle was then advanced, and 3 cores were obtained and given to the pathologis t for review. The coaxial needle was removed and Band-Aid applied. The patient tolerated the procedur e well. Post CT imaging demonstrated no immediate complication. Vital signs will be monitored on the floor. IMPRESSION: Right lung mass core biopsy as above. Performed, dictated, and signed by Tom Lewis PA-C; to be co-signed by Dr. Neri Vizcarra. Electronically signed by: Neri Vizcarra M.D. 05/29/2025 2:06 PM
[2025-05-30 06:32] LABS: Hematocrit (blood only) 25.2 % (42.0-52.0); Hemoglobin 8.7 g/dL (14.0-18.0); Mean Corpuscular Hemoglobin 31.2 pg (25.0-34.0); Mean Corpuscular Volume 90.3 fL (80.0-100.0); Platelet Count 313 K/uL (130-400); RDW Standard Deviation 40.8 fL (36.4-46.3); Red Blood Count 2.79 M/uL (4.70-6.10); White Blood Count 11.96 K/ul (4.8-10.8)
[2025-05-30 07:04] LABS: Anion Gap 7.0 (3-11); Blood Urea Nitrogen 20.0 mg/dl (6-23); Calcium 8.2 mg/dl (8.6-10.3); Carbon Dioxide 26.0 mmol/L (21-32); Chloride 103.0 mmol/L (98-107); Creatinine Clr Calc Pharmacy 61.1 ml/min; Glucose 133.0 mg/dl (70-99(Fasting)); Potassium 3.5 mmol/L (3.5-5.1); Sodium 136.0 mmol/L (136-145)
--- NOTE | 2025-05-30 09:11 | Pulmonology Progress Note ---
Date of Service May 30, 2025 Assessment & Plan (1) Abnormal positron emission tomography (PET) scan: (2) Pulmonary cavitary lesion: (3) Hemoptysis, unspecified: (4) Pneumonia: Plan CT chest 05/26/2025 personally reviewed: Centrilobular and paraseptal emphysema appreciated bilaterally Right lower lobe cavitary lesion with surrounding ground glass opacity, no significant change compared to PET/CT done 04/22/2025 Minimal Mediastinal lymphadenopathy -- Cavitary lung mass with hemoptysis Going on for the last 2 months Patient just saw ENT, Dr Smith who on laryngoscopy did not find any signs of epistaxis but saw blood inclining more towards hemoptysis S/p ischial bone biopsy 05/26/2025 by IR, follow-up cytology S/p bronchoscopy with EBUS 02/12/2025: Forceps biopsy showed rare atypical cells but no definitive carcinoma Station 10R, 7, 11R all negative for malignancy Micro from BAL as well as 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 Small hypermetabolic osseous lesion in the left ischium MRI brain 02/2025: Negative for any metastatic disease, chronic ischemic changes --Hemoptysis Likely secondary to above Monitor H&H --Ex-smoker >60 pack-year smoking history Quit at the age of 81 Encouraged to continue abstinence from smoking PFT 03/23/2025 personally reviewed: No obstructive lung dysfunction, insignificant bronchodilator response, mild air trapping, moderate decrease in DLCO FVC 3.37 L 100%, FEV1 2.36 L 101%, FEV1/FVC 70%, RV 111%, TLC 92%, RV/TLC 120%, DLCO 53%, DLCO/VA 76% --History of bladder cancer Did not need any treatment since 2009 Never needed chemo or radiation --History of lung cancer in sister who was a smoker Plan: S/p ischial bone biopsy 05/26/2025 by IR, follow-up final cytology S/p IR guided right lower lobe biopsy 05/29/2025, follow-up cytology I discussed with Dr Melgoza 05/29/2025, they saw some lymphocytes and have sent for flow which showed monoclonal B cells. The ischial lesion could be incidental in this case. Given the cavitary lesion in the lung it will not be a usual presentation for lymphoma. Chest x-ray from today on personal review shows right-sided pleural effusion getting worse, Lasix 40 mg given to the patient Recommend PT OT to see if the patient might benefit from rehab Case discussed with primary team, nurse as well as daughter at bedside All questions inquiries of patient's family were answered in depth Please note the above document was generated using voice recognition software. It may contain grammatical, syntax or spelling errors.Any formal questions or concerns about the content, text or information contained within the body of this dictation should be directly addressed to the provider for clarification. Admission and Anticipated Discharge Date Admission Date: May 26, 2025 Subjective Patient seen and examined at bedside. No acute distress, no adverse events overnight Patient's as well as daughter and granddaughter were in the room He was saturating 92-93% on 2 L nasal cannula Complain of some discomfort on the right side of the chest where he had the biopsy done. Denies any nausea vomiting Appetite is still poor. Denied any headache Hemoptysis has mellowed down Review of Systems 2 Review of Systems: All systems reviewed & are unremarkable except as noted in Subjective Physical Exam 2 Physical Exam: Constitutional: No acute distress HEENT: EOMI, PERRLA Respiratory system: Decreased air entry bilaterally, more decreased on the right, no wheeze, rhonchi, positive crackles right lower lobe CVS: S1-S2 positive, no murmurs or gallops Abdomen: Soft, nontender, nondistended, positive bowel sounds x4 Extremities: +2 pulses bilaterally radialis/ dorsalis pedis, no cyanosis, no edema Neuro: Awake alert oriented x3 Psych: Normal mood and affect G/U: No Kwok Skin: no rashes, warm and dry Lymphatic: no cervical or axillary lymphadenopathy Results & Data Results & Data Vital Signs (Past 12 Hours) Vital Signs Temp Pulse Pulse Resp BP Pulse Ox O2 Del Method 05/30/25 08:29 36.7 C 83 19 131/69 91 Nasal Cannula 05/30/25 07:25 77 05/30/25 01:16 37.1 C 82 18 116/61 92 Nasal Cannula 05/29/25 22:35 36.8 C 77 16 126/62 96 Room Air 05/29/25 21:41 72 O2 Flow Rate 05/30/25 08:29 3 05/30/25 07:25 05/30/25 01:16 3 05/29/25 22:35 05/29/25 21:41 Laboratory Results 05/30/25 05:51 05/30/25 05:51 PG Care Time/CCT Total # of Minutes Spent Total Time Spent with Patient: Total time spent is greater than 50% in coordination of care (as documented) at patient's floor/unit and/or counseling patient: Coding Level of Care Code 12159 SUB INP/OBS CARE 235MIN Diagnoses Abnormal positron emission tomography (PET) scan R94.8 Pulmonary cavitary lesion J98.4 Hemoptysis, unspecified R04.2 Pneumonia J18.9
--- NOTE | 2025-05-30 10:47 | XRay Report ---
Technique: A frontal view of the chest was obtained Comparison is made to the prior chest radiograph dated 05/25/[address] dated 05/26/2025 Findings: Again seen is an 8.3 cm cavitary mass or abscess in the right lower lobe. The heart size is within normal limits. No definite left pleural effusion or pneumothorax is seen. There is an increased moderate sized right pleural effusion. No fracture is noted. No foreign body is seen Impression: 1. Unchanged 8.3 cm cavitary mass or abscess in the right lower lobe 2. Increased right pleural effusion ACT 112: Positive. There are findings on this exam that require communication between the performing entity and the patient following Patient Test Result Information Act ([place] ACT 112) guidelines. Electronically signed by Wesley Reina 05-30-2025 10:47 AM
--- NOTE | 2025-05-30 11:32 | Hospitalist Progress Note ---
Date of Service May 30, 2025 Assessment & Plan (1) Postobstructive pneumonia: (2) Lung mass: (3) Hypertension: Plan 84-year-old man with a right lower lobe lung mass which has been under workup since this summer who was admitted with postobstructive pneumonia. Initially thought to be probably infectious and took 3 weeks of antibiotics but saw no improvement. PET/CT a month ago with increase in hypermetabolic activity of the right lower lobe mass there was also a left ischial bony lesion and a pretracheal lymph node with increased uptake. he was scheduled for bronc and IR biopsy of the left ischial lesion this week. # 1. Cavitary lung mass with hemoptysis and postobstructive pneumonia: Patient has been having ongoing hemoptysis for the past couple of months. CT showed evidence of a cavitary lesion. Of note, patient had bronchoscopy and EBUS in February 2025. Biopsy showed some rare atypical cells but no definitive carcinoma. BAL was positive for Corynebacterium for which the patient completed a course of antibiotics for 4 weeks. PET scan done in April 22, 2025 shows significant uptake in the right lower cavitary lesion. PET scan also picked up some lesion in the ischial area for which biopsy has been done, pathology pending Dependency Counselor on board, he is now s/p CT-guided lung biopsyy, pathology pending Continue IV Zosyn For now Transition to PO antibiotics upon discharge to rehab Upper extremity shakes/tremors- seems to have been related to infection and has resolved Hypertension- Continue atenolol and amlodipine with hold parameters Hyperlipidemia- Continue atorvastatin Back pain: Patient complaining of back pain We optimize his pain medications. Depression: Patient has been in a very low mood, feeling depressed Refusing to participate in physical therapy Consult psychiatry start DVT prophylaxis with enoxaparin Disposition: Will likely benefit from rehab, PT/OT on board, However patient refusing to participate in therapy Admission and Anticipated Discharge Date Admission Date: May 26, 2025 Subjective Patient seen and examined today, daughter by the bedside, patient has been feeling depressed lately, refusing to participate in physical therapy Review of Systems Review of Systems: All systems reviewed are negative, apart from the ones contained in the history. Physical Exam Physical Exam: The patient is awake, alert and oriented 3, well developed and well nourished, normocephalic and atraumatic, lying in bed and in no acute distress. HEENT--PERRL, EOMI, mucous membranes and oropharynx mildly dry Neck--supple. No JVD. No bruits. Thyroid normal, trachea midline, no adenopathy. Heart--normal S1 and S2. No murmurs, rubs or gallops. Lungs--Reduced and on auscultation Abdomen--normal bowel sounds and soft. Extremities--no cyanosis or clubbing. No edema. Dermatologic--normal skin turgor, normal color, no abnormal lymph nodes, no rash. Neurologic--cranial nerves II through XII grossly intact. Rheumatologic--normal range of motion. Psychiatric--normal affect. Results & Data Results & Data Vital Signs (Past 12 Hours) Vital Signs Temp Pulse Pulse Resp BP Pulse Ox O2 Del Method 05/30/25 08:29 98.1 F 83 19 131/69 91 Nasal Cannula 05/30/25 07:25 77 05/30/25 01:16 98.8 F 82 18 116/61 92 Nasal Cannula O2 Flow Rate 05/30/25 08:29 3 05/30/25 07:25 05/30/25 01:16 3 PG Care Time/CCT Total # of Minutes Spent Total Time Spent with Patient: Total time spent is greater than 50% in coordination of care (as documented) at patient's floor/unit and/or counseling patient: Coding Level of Care Code 98703 SUB INP/OBS CARE 2/35MIN Diagnoses Postobstructive pneumonia J18.9 Lung mass R91.8 Primary hypertension I10 Hypertension type: primary hypertension Time Spent (min) 35 (3) Hypertension Hypertension type: primary hypertension Qualified Code(s): I10 - Essential (primary) hypertension
[2025-05-30] MEDS: FUROSEMIDE 40 MG/4 ML VIAL IV ONE (12:21)
[2025-05-30] MEDS: PIPERACILLIN/TAZOBACTAM 4.5 GM/100 ML BAG IV SCH (13:59)
--- NOTE | 2025-05-30 15:52 | Psychiatric Consultation ---
Date of Consultation May 30, 2025 Impression / Recommendations Impression Diagnostically consistent with adjustment disorder with mixed anxiety and depressed mood. Acute risk of self-harm is low given denial of SI. He's interested in trial of mirtazapine. Reviewed significant age-related risks with benzodiazepines and goal of reserving use only for short-term and severe panic attacks. Overall, I spent a total of 60 minutes with this case including review of chart records, review of labwork, review of EKG QTc, direct evaluation of the patient at bedside, counseling the patient, discussion of the patient with the hospitalist provider, discussion with the psychiatric liason during clinical rounds, review of collateral historian information from the family and documentation in the electronic health record. (1) Adjustment disorder with mixed anxiety and depressed mood: (2) Pulmonary cavitary lesion: (3) Postobstructive pneumonia: Plan -Would start mirtazapine 7.5mg HS and can titrate to 15mg HS if needed -Recommend avoiding benzodiazepines unless necessary and then could consider use of lorazepam 0.5mg BID po prn for panic attack Psych History Identifying Data Luis Phillips is an 84-year-old male with a past medical history including right lower lobe lung mass, tricuspid regurgitation, mitral regurgitation, sinus bradycardia, seizure, ex smoker, JAYLAN, mild cognitive disorder, hypertension, dyslipidemia, BPH with LUTS, and chronic osteoarthritis admitted for pneumonia. Psychiatry consulted for "depression". Chief Complaint "It's been a good day". History of Present Illness Luis reports that since discovery of a mass a few months ago it "set something off" and he has been dealing with periods of anxiety since then. Feels his anxiety comes and goes but has been a little better lately. Today rates his anxiety is very low "1 out of 10" and that "it has been a good day". He does struggle with low appetite and sleep difficulties. He found the Xanax very helpful and wonders about having something like that for anxiety. Typically he starts to experience more anxiety in the evening around 7 PM when he can feel restless and often asks for something to be able to take.He is not requiring oxygen during the day today which she is pleased about. He does not identify any prominent depressive symptoms and denies suicidal ideation. His and daughter and at bedside. His notes that he has much more like himself today, getting out of bed, more alert and seems "100% better" compared with yesterday. Discussed option of trial of mirtazapine which all are interested in. Allergies Allergy/AdvReac Type Severity Reaction Status Date / Time amoxicillin [From Augmentin] AdvReac Mild severe Verified 04/24/25 13:02 nausea clavulanic acid AdvReac Mild severe Verified 04/24/25 13:02 [From Augmentin] nausea Home Medications Medication Instructions Recorded Confirmed Type lactobacillus combination no.4 15 15,000 mmu cells PO DAILY 02/17/25 05/25/25 History billion cell capsule omeprazole 20 mg capsule,delayed 40 mg PO DAILY 02/17/25 05/25/25 History release amlodipine 10 mg tablet 10 mg PO QAM #90 tabs 03/16/25 05/25/25 Rx atorvastatin 10 mg tablet 10 mg PO HS #90 tabs 03/16/25 05/25/25 Rx atenolol 25 mg tablet 25 mg PO QAM #30 tabs 05/15/25 05/25/25 Rx Patient History Medical History History of bradycardia (02/18/25) Hypertension GERD (gastroesophageal reflux disease) Bleeding disorder Lung mass Enlarged prostate with lower urinary tract symptoms (LUTS) JAYLAN (generalized anxiety disorder) Dyslipidemia Chronic osteoarthritis Syncope Witnessed seizure-like activity (02/17/25) Melanoma in situ Tubular adenoma of colon Transitional cell carcinoma of bladder Family history of melanoma Decreased hearing Surgical History Hx of cataract extraction (2022) Hx of wisdom tooth extraction Hx of melanoma excision H/O colonoscopy History of hernia surgery History of bladder surgery (~1997) Family History Unknown Skin cancer Heart disease Diabetes Sister Breast cancer Lung cancer Denies family history of Ovarian cancer Prostate cancer Myocardial infarction Colorectal cancer Stroke Social History Smoking Status: Former smoker Tobacco Type: Cigarettes Age Started Using Tobacco: 16; Age Quit Using Tobacco: 81; packs per day: 1; Cigarettes Per Day: quit 30 years ago x 25 years- started smoking again x 1 year- stop 3 years; Second Hand Exposure: No; Do You Dip or Chew Tobacco: No; Hx Alcohol Use: No Hx Substance Use: No Preferred Language: Maldivian Communication Ability: Effective Visual Impairment: Limited Hearing Ability: Hard of Hearing Web Marketing Analyst Required: No Beliefs That Will Affect Care: None marital status: Current Living Situation: Spouse current occupational status: retired 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 How many Children do You have: 4 Feels Safe at Home: Yes Childhood Exposure to Second-Hand Smoke: Yes (thinks father did ) Diet: regular caffeine: Yes (coffee) during the past year weight has: remained stable Dental Care, Regularly: No Physical Activity Frequency: Does not Exercise Seatbelt Use: always Sunscreen Use: No Assistive Devices: None Physical Exam Vital Signs (Past 24 Hours): Last Vital Signs Temp 36.7 C 05/30/25 08:29 Pulse 83 05/30/25 08:29 Resp 19 05/30/25 08:29 BP 131/69 05/30/25 08:29 Pulse Ox 91 05/30/25 08:29 O2 Del Method Nasal Cannula 05/30/25 08:29 O2 Flow Rate 3 05/30/25 08:29 Results & Data (PSY) Medications Administered Acetaminophen (Acetaminophen 325 Mg Tab) 650 mg PO Q4H PRN PRN Reason: Pain or Fever Stop: 06/25/25 02:06 Last Admin: 05/30/25 08:32 Dose: 650 mg Documented By: Admin: 05/28/25 15:29 Dose: 650 mg Documented By: Admin: 05/28/25 01:20 Dose: 650 mg Documented By: Admin: 05/27/25 17:07 Dose: 650 mg Documented By: Admin: 05/27/25 08:38 Dose: 650 mg Documented By: Admin: 05/27/25 02:51 Dose: 650 mg Documented By: Admin: 05/26/25 20:30 Dose: 650 mg Documented By: Admin: 05/26/25 13:22 Dose: 650 mg Documented By: Admin: 05/26/25 09:02 Dose: 650 mg Documented By: ASA Amlodipine Besylate (Amlodipine Besylate 5 Mg Tab) 10 mg PO [facility] Stop: 06/25/25 08:59 Last Admin: 05/30/25 08:33 Dose: 10 mg Documented By: Admin: 05/29/25 14:54 Dose: 10 mg Documented By: Admin: 05/28/25 08:04 Dose: 10 mg Documented By: darwin Admin: 05/27/25 08:37 Dose: 10 mg Documented By: Admin: 05/26/25 09:03 Dose: 10 mg Documented By: JEMIMA Atenolol (Atenolol 25 Mg Tablet) 25 mg PO QA MELISA Stop: 06/25/25 08:59 Last Admin: 05/30/25 08:33 Dose: 25 mg Documented By: Admin: 05/29/25 14:55 Dose: 25 mg Documented By: Admin: 05/28/25 08:04 Dose: 25 mg Documented By: darwin Admin: 05/27/25 08:37 Dose: 25 mg Documented By: Admin: 05/26/25 09:03 Dose: 25 mg Documented By: JEMIMA Atorvastatin Calcium (Atorvastatin 10 Mg Tab) 10 mg PO [facility] Stop: 06/25/25 20:59 Last Admin: 05/29/25 20:01 Dose: 10 mg Documented By: Admin: 05/28/25 20:44 Dose: 10 mg Documented By: jerry Admin: 05/27/25 20:08 Dose: 10 mg Documented By: Admin: 05/26/25 20:31 Dose: 10 mg Documented By: NETTA Enoxaparin Sodium (Enoxaparin Inj 40 Mg/0.4 Ml Syr) 40 mg SQ HS MELISA Stop: 06/25/25 20:59 Last Admin: 05/29/25 20:01 Dose: 40 mg Documented By: Admin: 05/28/25 20:44 Dose: 40 mg Documented By: jerry Admin: 05/27/25 20:08 Dose: 40 mg Documented By: Admin: 05/26/25 20:31 Dose: 40 mg Documented By: HIRAMT Piperacillin Sod/Tazobactam Sod (Zosyn) 4.5 gm in 100 mls @ 25 mls/hr IV Q8H MELISA; Protocol Stop: 06/04/25 13:59 Last Admin: 05/30/25 13:59 Dose: 25 mls/hr Documented By: JEMIMA Lactobacillus Acidophilus (Advanced Probiotic 625 Mg Capsule) 1,250 mg PO DAILY MELISA Stop: 06/25/25 08:59 Last Admin: 05/30/25 08:33 Dose: 1,250 mg Documented By: Admin: 05/29/25 14:54 Dose: 1,250 mg Documented By: Admin: 05/28/25 08:05 Dose: 1,250 mg Documented By: darwin Admin: 05/27/25 08:37 Dose: 1,250 mg Documented By: Admin: 05/26/25 09:03 Dose: 1,250 mg Documented By: JEMIMA Ondansetron HCl (Ondansetron Inj 2 Mg/Ml 2 Ml Vial) 4 mg IV Q6H PRN PRN Reason: Nausea And Vomiting Stop: 06/25/25 20:14 Last Admin: 05/30/25 08:40 Dose: 4 mg Documented By: Admin: 05/26/25 20:30 Dose: 4 mg Documented By: NETTA Pantoprazole Sodium (Pantoprazole 40 Mg Tab) 40 mg PO DAILY MELISA Stop: 06/25/25 08:59 Last Admin: 05/30/25 08:33 Dose: 40 mg Documented By: Admin: 05/29/25 14:55 Dose: 40 mg Documented By: Admin: 05/28/25 08:04 Dose: 40 mg Documented By: darwin Admin: 05/27/25 08:37 Dose: 40 mg Documented By: Admin: 05/26/25 09:03 Dose: 40 mg Documented By: JEMIMA Coding Level of Care Code 14752 IN/OBS CONSULT LVL 4,60M Diagnoses Adjustment disorder with mixed anxiety and depressed mood F43.23 Pulmonary cavitary lesion J98.4 Postobstructive pneumonia J18.9
[2025-05-30] MEDS ORDERED: AMOXICILLIN/CLAVULANATE 875 MG TAB PO SCH (17:00)
[2025-05-30] MEDS: MIRTAZAPINE TAB 15 MG TAB PO SCH (20:22)
[2025-05-31 06:51] LABS: Hematocrit (blood only) 27.5 % (42.0-52.0); Hemoglobin 9.2 g/dL (14.0-18.0); Mean Corpuscular Hemoglobin 30.7 pg (25.0-34.0); Mean Corpuscular Volume 91.7 fL (80.0-100.0); Platelet Count 335 K/uL (130-400); RDW Standard Deviation 41.3 fL (36.4-46.3); Red Blood Count 3.00 M/uL (4.70-6.10); White Blood Count 12.52 K/ul (4.8-10.8)
[2025-05-31 07:15] LABS: Anion Gap 9.0 (3-11); Blood Urea Nitrogen 20.0 mg/dl (6-23); Calcium 8.2 mg/dl (8.6-10.3); Carbon Dioxide 28.0 mmol/L (21-32); Chloride 101.0 mmol/L (98-107); Creatinine Clr Calc Pharmacy 52.2 ml/min; Glucose 118.0 mg/dl (70-99(Fasting)); Potassium 3.2 mmol/L (3.5-5.1); Sodium 138.0 mmol/L (136-145)
[2025-05-31] MEDS: POTASSIUM CHLORIDE CRTAB 20 MEQ TABCR PO STA (07:58)
--- NOTE | 2025-05-31 09:31 | Hospitalist Progress Note ---
Date of Service May 31, 2025 Assessment & Plan (1) Postobstructive pneumonia: (2) Lung mass: (3) Hypertension: Plan 84-year-old man with a right lower lobe lung mass which has been under workup since this summer who was admitted with postobstructive pneumonia. Initially thought to be probably infectious and took 3 weeks of antibiotics but saw no improvement. PET/CT a month ago with increase in hypermetabolic activity of the right lower lobe mass there was also a left ischial bony lesion and a pretracheal lymph node with increased uptake. he was scheduled for bronc and IR biopsy of the left ischial lesion this week. # 1. Cavitary lung mass with hemoptysis and postobstructive pneumonia: Patient has been having ongoing hemoptysis for the past couple of months. CT showed evidence of a cavitary lesion. Of note, patient had bronchoscopy and EBUS in February 2025. Biopsy showed some rare atypical cells but no definitive carcinoma. BAL was positive for Corynebacterium for which the patient completed a course of antibiotics for 4 weeks. PET scan done in April 22, 2025 shows significant uptake in the right lower cavitary lesion. PET scan also picked up some lesion in the ischial area for which biopsy has been done, pathology pending Service Worker Helper on board, he is now s/p CT-guided lung biopsyy, pathology pending Continue IV Zosyn For now Transition to PO antibiotics upon discharge to rehab Upper extremity shakes/tremors- seems to have been related to infection and has resolved Hypertension- Continue atenolol and amlodipine with hold parameters Hyperlipidemia- Continue atorvastatin Back pain: Patient complaining of back pain We optimize his pain medications. Depression: Patient has been in a very low mood, feeling depressed Refusing to participate in physical therapy Per psychiatry,Would start mirtazapine 7.5mg HS and can titrate to 15mg HS if needed -Recommend avoiding benzodiazepines unless necessary and then could consider use of lorazepam 0.5mg BID po prn for panic attack start DVT prophylaxis with enoxaparin Disposition: Will likely benefit from rehab, PT/OT on board, However patient refusing to participate in therapy Admission and Anticipated Discharge Date Admission Date: May 26, 2025 Subjective Patient seen and examined, lying quietly in bed, eating very little seems to be in a poor mood Review of Systems Review of Systems: All systems reviewed are negative, apart from the ones contained in the history. Physical Exam Physical Exam: The patient is awake, alert and oriented 3, well developed and well nourished, normocephalic and atraumatic, lying in bed and in no acute distress. HEENT--PERRL, EOMI, mucous membranes and oropharynx mildly dry Neck--supple. No JVD. No bruits. Thyroid normal, trachea midline, no adenopathy. Heart--normal S1 and S2. No murmurs, rubs or gallops. Lungs--Reduced and on auscultation Abdomen--normal bowel sounds and soft. Extremities--no cyanosis or clubbing. No edema. Dermatologic--normal skin turgor, normal color, no abnormal lymph nodes, no rash. Neurologic--cranial nerves II through XII grossly intact. Rheumatologic--normal range of motion. Psychiatric--normal affect. Results & Data Results & Data Vital Signs (Past 12 Hours) Vital Signs Temp Pulse Pulse Resp BP Pulse Ox O2 Del Method 05/31/25 09:19 Nasal Cannula 05/31/25 07:55 97.5 F L 78 17 122/68 95 Nasal Cannula 05/31/25 07:07 72 05/30/25 22:00 98.2 F 67 16 118/57 L 95 Room Air 05/30/25 21:56 72 O2 Flow Rate 05/31/25 09:19 05/31/25 07:55 3 05/31/25 07:07 05/30/25 22:00 05/30/25 21:56 PG Care Time/CCT Total # of Minutes Spent Total Time Spent with Patient: Total time spent is greater than 50% in coordination of care (as documented) at patient's floor/unit and/or counseling patient: Coding Level of Care Code 05052 SUB INP/OBS CARE 2/35MIN Diagnoses Postobstructive pneumonia J18.9 Lung mass R91.8 Primary hypertension I10 Hypertension type: primary hypertension Time Spent (min) 35 (3) Hypertension Hypertension type: primary hypertension Qualified Code(s): I10 - Essential (primary) hypertension
--- NOTE | 2025-05-31 09:42 | Pulmonology Progress Note ---
Date of Service May 31, 2025 Assessment & Plan (1) Abnormal positron emission tomography (PET) scan: (2) Pulmonary cavitary lesion: (3) Hemoptysis, unspecified: (4) Pneumonia: Plan CT chest 05/26/2025 personally reviewed: Centrilobular and paraseptal emphysema appreciated bilaterally Right lower lobe cavitary lesion with surrounding ground glass opacity, no significant change compared to PET/CT done 04/22/2025 Minimal Mediastinal lymphadenopathy -- Cavitary lung mass with hemoptysis Going on for the last 2 months Patient just saw ENT, Dr Smith who on laryngoscopy did not find any signs of epistaxis but saw blood inclining more towards hemoptysis S/p ischial bone biopsy 05/26/2025 by IR, follow-up cytology S/p bronchoscopy with EBUS 02/12/2025: Forceps biopsy showed rare atypical cells but no definitive carcinoma Station 10R, 7, 11R all negative for malignancy Micro from BAL as well as 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 Small hypermetabolic osseous lesion in the left ischium MRI brain 02/2025: Negative for any metastatic disease, chronic ischemic changes --Hemoptysis Likely secondary to above Monitor H&H --Ex-smoker >60 pack-year smoking history Quit at the age of 81 Encouraged to continue abstinence from smoking PFT 03/23/2025 personally reviewed: No obstructive lung dysfunction, insignificant bronchodilator response, mild air trapping, moderate decrease in DLCO FVC 3.37 L 100%, FEV1 2.36 L 101%, FEV1/FVC 70%, RV 111%, TLC 92%, RV/TLC 120%, DLCO 53%, DLCO/VA 76% --History of bladder cancer Did not need any treatment since 2009 Never needed chemo or radiation --History of lung cancer in sister who was a smoker Plan: S/p ischial bone biopsy 05/26/2025 by IR, follow-up final cytology S/p IR guided right lower lobe biopsy 05/29/2025, follow-up cytology I discussed with Dr Melgoza 05/29/2025, they saw some lymphocytes and have sent for flow which showed monoclonal B cells. The ischial lesion could be incidental in this case. Given the cavitary lesion in the lung it will not be a usual presentation for lymphoma. Chest x-ray from today on personal review still shows small right-sided pleural effusion getting worse, will give another 40 mill colons of potassium and 40 mg of Lasix Recommend PT OT to see if the patient might benefit from rehab Incentive spirometry will be beneficial Case discussed with primary team, nurse as well as daughter at bedside No further recommendation from pulmonary perspective, will sign off Please call directly with any questions Please note the above document was generated using voice recognition software. It may contain grammatical, syntax or spelling errors.Any formal questions or concerns about the content, text or information contained within the body of this dictation should be directly addressed to the provider for clarification. Admission and Anticipated Discharge Date Admission Date: May 26, 2025 Subjective Patient seen and examined at bedside. No acute distress, no adverse events overnight He was saturating 97-98% on 3 L nasal cannula, I went down to 1 L Patient's daughter was in the room Still complains of pain when he takes a deep breath and on the right side Cough has mellowed down Denies any nausea vomiting Appetite is still poor Review of Systems 2 Review of Systems: All systems reviewed & are unremarkable except as noted in Subjective Physical Exam 2 Physical Exam: Constitutional: No acute distress HEENT: EOMI, PERRLA Respiratory system: Decreased air entry bilaterally, more decreased on the right, no wheeze, rhonchi, positive crackles right lower lobe CVS: S1-S2 positive, no murmurs or gallops Abdomen: Soft, nontender, nondistended, positive bowel sounds x4 Extremities: +2 pulses bilaterally radialis/ dorsalis pedis, no cyanosis, no edema Neuro: Awake alert oriented x3 Psych: Flat mood and affect G/U: No [place] Skin: no rashes, warm and dry Lymphatic: no cervical or axillary lymphadenopathy Results & Data Results & Data Vital Signs (Past 12 Hours) Vital Signs Temp Pulse Pulse Resp BP Pulse Ox O2 Del Method 05/31/25 09:19 Nasal Cannula 05/31/25 07:55 36.4 C L 78 17 122/68 95 Nasal Cannula 05/31/25 07:07 72 05/30/25 22:00 36.8 C 67 16 118/57 L 95 Room Air 05/30/25 21:56 72 O2 Flow Rate 05/31/25 09:19 05/31/25 07:55 3 05/31/25 07:07 05/30/25 22:00 05/30/25 21:56 Laboratory Results 05/31/25 06:31 05/31/25 06:31 PG Care Time/CCT Total # of Minutes Spent Total Time Spent with Patient: Total time spent is greater than 50% in coordination of care (as documented) at patient's floor/unit and/or counseling patient: Coding Level of Care Code 25582 SUB INP/OBS CARE 2/35MIN Diagnoses Abnormal positron emission tomography (PET) scan R94.8 Pulmonary cavitary lesion J98.4 Hemoptysis, unspecified R04.2 Pneumonia J18.9
--- NOTE | 2025-05-31 10:41 | XRay Report ---
Exam: AP Portable Chest Exam reason: Follow-up Comparison: 05/30/2025 Technique: A single AP portable view of the chest was obtained Findings: The lungs are well-expanded. There is redemonstration of a small loculated appearing right-sided pleural effusion. There is blunting of the left costophrenic angle. There is ill-defined right lower lung zone consolidation. The cardiac and mediastinal silhouettes are within normal limits. There is no pneumothorax and no acute bony abnormalities are seen. Impression: 1. No significant change in appearance of the chest. There is redemonstration of a small right-sided pleural effusion with likely associated atelectasis or pneumonia in the right lower lobe. 2. There is a trace left-sided pleural effusion. Electronically signed by Camron Gastelum 05-31-2025 10:40 AM
[2025-05-31] MEDS: FUROSEMIDE 40 MG/4 ML VIAL IV ONE (10:50)
[2025-05-31] MEDS: POTASSIUM CHLORIDE CRTAB 20 MEQ TABCR PO ONE (13:03)
[2025-06-01 07:45] LABS: Hematocrit (blood only) 25.6 % (42.0-52.0); Hemoglobin 8.6 g/dL (14.0-18.0); Mean Corpuscular Hemoglobin 30.6 pg (25.0-34.0); Mean Corpuscular Volume 91.1 fL (80.0-100.0); Platelet Count 394 K/uL (130-400); RDW Standard Deviation 41.2 fL (36.4-46.3); Red Blood Count 2.81 M/uL (4.70-6.10); White Blood Count 13.41 K/ul (4.8-10.8)
[2025-06-01 08:11] LABS: Anion Gap 8.0 (3-11); Blood Urea Nitrogen 22.0 mg/dl (6-23); Calcium 8.2 mg/dl (8.6-10.3); Carbon Dioxide 27.0 mmol/L (21-32); Chloride 101.0 mmol/L (98-107); Creatinine Clr Calc Pharmacy 52.2 ml/min; Glucose 120.0 mg/dl (70-99(Fasting)); Potassium 3.9 mmol/L (3.5-5.1); Sodium 136.0 mmol/L (136-145)
--- NOTE | 2025-06-01 12:57 | Hospitalist Progress Note ---
Date of Service June 01, 2025 Assessment & Plan (1) Postobstructive pneumonia: (2) Lung mass: (3) Hypertension: Plan 84-year-old man with a right lower lobe lung mass which has been under workup since this summer who was admitted with postobstructive pneumonia. Initially thought to be probably infectious and took 3 weeks of antibiotics but saw no improvement. PET/CT a month ago with increase in hypermetabolic activity of the right lower lobe mass there was also a left ischial bony lesion and a pretracheal lymph node with increased uptake. he was scheduled for bronc and IR biopsy of the left ischial lesion this week. 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 CT showed evidence of a cavitary lesion. Of note, patient had bronchoscopy and EBUS in February 2025. Biopsy showed some rare atypical cells but no definitive carcinoma. BAL was positive for Corynebacterium for which the patient completed a course of antibiotics for 4 weeks. -PET scan done in April 22, 2025 shows significant uptake in the right lower cavitary lesion. -PET scan also picked up some lesion in the ischial area for which biopsy has been done, pathology pending -House Player on board, he is now s/p CT-guided lung biopsyy, pathology pending -Continue IV Zosyn For now, slight interval increase in EBC, continue to monitor -Transition to PO antibiotics upon discharge to rehab . #Leukocytosis - mild upward trend, see abx as above, trend CRP as well, clinically improving #Severe Protein calorie malnutrition - See RD consult, supple.ment, remeron per psych, discussed megace, add probiotic #Upper extremity shakes/tremors- seems to have been related to infection and has resolved #Hypertension- Continue atenolol and amlodipine with hold parameters #Hyperlipidemia- Continue atorvastatin #Back Pain Patient complaining of back pain on admit -stable at this time #Depression: Patient has been in a very low mood, feeling depressed Refusing to participate in physical therapy Per psychiatry,Would start mirtazapine 7.5mg HS and can titrate to 15mg HS if needed -Recommend avoiding benzodiazepines unless necessary and then could consider use of lorazepam 0.5mg BID po prn for panic attack start DVT prophylaxis with enoxaparin Disposition: Will likely benefit from rehab, PT/OT on board, However patient refusing to participate in therapy Admission and Anticipated Discharge Date Admission Date: May 26, 2025 Subjective Lying comfortable in bed. Openly conversant. States "I am not doing all that great today". Does not have any new complaints of pain or discomfort. Has not been up working with PT and OT much as he used over the weekend. States his appetite is bad. He reports this is typically when he is on antibiotics. Was encouraged during his last hospitalization. Increasingly problematic here. He continues to try supplements but does not think that much of any of those. Not drinking as much as usual. Seems somewhat frustrated with his overall condition. He did take the mirtazapine last night. He does not help him sleep. To be determined whether it is going to help with his appetite as of yet. Otherwise no new complaints or concerns per patient or family Physical Exam Physical Exam: The patient is awake, alert and oriented 3, well developed and well nourished, normocephalic and atraumatic, lying in bed and in no acute distress. HEENT--PERRL, EOMI, mucous membranes and oropharynx mildly dry Neck--supple. No JVD. No bruits. Thyroid normal, trachea midline, no adenopathy. Heart--normal S1 and S2. No murmurs, rubs or gallops. Lungs--Reduced and on auscultation Abdomen--normal bowel sounds and soft. Extremities--no cyanosis or clubbing. No edema. Dermatologic--normal skin turgor, normal color, no abnormal lymph nodes, no rash. Neurologic--cranial nerves II through XII grossly intact. Rheumatologic--normal range of motion. Psychiatric--normal affect. Results & Data Results & Data Vital Signs (Past 12 Hours) Vital Signs Temp Pulse Pulse Resp BP Pulse Ox O2 Del Method 06/01/25 12:44 36.6 C 75 18 120/66 91 Nasal Cannula 06/01/25 11:21 Nasal Cannula 06/01/25 08:55 36.6 C 73 18 112/61 93 Nasal Cannula 06/01/25 07:24 76 06/01/25 03:00 75 O2 Flow Rate 06/01/25 12:44 1 06/01/25 11:21 2 06/01/25 08:55 1 06/01/25 07:24 06/01/25 03:00 Laboratory Results 06/01/25 07:11 WBC 13.41 H RBC 2.81 L Hgb 8.6 L Hct 25.6 L MCV 91.1 MCH 30.6 MCHC 33.6 RDW Std Deviation 41.2 RDW Coeff of Sidra 12.4 Plt Count 394 MPV 9.2 L Sodium 136 Potassium 3.9 D Chloride 101 Carbon Dioxide 27 Anion Gap 8 BUN 22 Creatinine 1.02 Est Cr Clr Drug Dosing 52.2 eGFR 72.47 BUN/Creatinine Ratio 21.6 H Glucose 120 H Calcium 8.2 L PG Care Time/CCT Total # of Minutes Spent Total Time Spent with Patient: Total time spent is greater than 50% in coordination of care (as documented) at patient's floor/unit and/or counseling patient: Coding Level of Care Code 34607 SUB INP/OBS CARE 235MIN Diagnoses Postobstructive pneumonia J18.9 Lung mass R91.8 Primary hypertension I10 Hypertension type: primary hypertension (3) Hypertension Hypertension type: primary hypertension Qualified Code(s): I10 - Essential (primary) hypertension
[2025-06-01] MEDS: POTASSIUM CHLORIDE CRTAB 20 MEQ TABCR PO SCH (20:56)
[2025-06-02 07:22] LABS: Hematocrit (blood only) 26.4 % (42.0-52.0); Hemoglobin 9.0 g/dL (14.0-18.0); Immature Granulocytes # (auto) 0.10 K/uL (0.01-0.20); Immature Granulocytes % (auto) 0.7 %; Mean Corpuscular Hemoglobin 30.8 pg (25.0-34.0); Mean Corpuscular Volume 90.4 fL (80.0-100.0); Platelet Count 433 K/uL (130-400); RDW Standard Deviation 41.4 fL (36.4-46.3); Red Blood Count 2.92 M/uL (4.70-6.10); White Blood Count 14.10 K/ul (4.8-10.8)
[2025-06-02 07:41] LABS: Alanine Aminotransferase 21.0 U/L (7-52); Albumin Globulin Ratio 0.8 (0.9-2); Albumin Level 2.8 gm/dl (3.4-5.0); Alkaline Phosphatase 53.0 U/L (34-104); Anion Gap 9.0 (3-11); Bilirubin,Total 0.5 mg/dl (0.2-1.0); Blood Urea Nitrogen 18.0 mg/dl (6-23); Calcium 8.2 mg/dl (8.6-10.3); Carbon Dioxide 26.0 mmol/L (21-32); Chloride 101.0 mmol/L (98-107); Creatinine Clr Calc Pharmacy 56.9 ml/min; Globulin 3.3 gm/dl (2.5-4.0); Glucose 116.0 mg/dl (70-99(Fasting)); Magnesium 2.1 mg/dl (1.7-2.4); Potassium 4.1 mmol/L (3.5-5.1); Sodium 136.0 mmol/L (136-145); Total Protein 6.1 gm/dl (6.0-8.3)
--- NOTE | 2025-06-02 16:08 | Hospitalist Progress Note ---
Date of Service June 02, 2025 Assessment & Plan (1) Postobstructive pneumonia: (2) Lung mass: (3) Hypertension: Plan 84-year-old man with a right lower lobe lung mass which has been under workup since this summer who was admitted with postobstructive pneumonia. Initially thought to be probably infectious and took 3 weeks of antibiotics but saw no improvement. PET/CT a month ago with increase in hypermetabolic activity of the right lower lobe mass there was also a left ischial bony lesion and a pretracheal lymph node with increased uptake. he was scheduled for bronc and IR biopsy of the left ischial lesion this week. 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 CT showed evidence of a cavitary lesion. Of note, patient had bronchoscopy and EBUS in February 2025. Biopsy showed some rare atypical cells but no definitive carcinoma. BAL was positive for Corynebacterium for which the patient completed a course of antibiotics for 4 weeks. -PET scan done in April 22, 2025 shows significant uptake in the right lower cavitary lesion. -PET scan also picked up some lesion in the ischial area for which biopsy has been done, pathology pending -Asphalt Tamper on board, he is now s/p CT-guided lung biopsy, pathology pending -Continue IV Zosyn For now, slight interval increase in EBC, continue to monitor -Transition to PO antibiotics upon discharge to rehab . #Leukocytosis - mild upward trend, see abx as above, trend CRP as well, clinically improving, generally stable - trend CRP and procal x 48h as well #Severe Protein calorie malnutrition - See RD consult, supple.ment, remeron per psych, discussed megace, add probiotic #Upper extremity shakes/tremors- seems to have been related to infection and has resolved #Hypertension- Continue atenolol and amlodipine with hold parameters #Hyperlipidemia- Continue atorvastatin #Back Pain Patient complaining of back pain on admit -stable at this time #Depression: Patient has been in a very low mood, feeling depressed Refusing to participate in physical therapy Per psychiatry,Would start mirtazapine 7.5mg HS and can titrate to 15mg HS if needed -Recommend avoiding benzodiazepines unless necessary and then could consider use of lorazepam 0.5mg BID po prn for panic attack start DVT prophylaxis with enoxaparin Disposition: Will likely benefit from rehab, PT/OT on board, However patient refusing to participate in therapy Admission and Anticipated Discharge Date Admission Date: May 26, 2025 Subjective Doing okay this morning. Is actually subtle increasing his appetite this morning at breakfast. Tolerated small bowel movement today. No other new complaints or concerns. No significant improvement. Did not supplement given. Has been supplementing with Gatorade as well. Physical Exam Physical Exam: The patient is awake, alert and oriented 3, well developed and well nourished, normocephalic and atraumatic, lying in bed and in no acute distress. HEENT--PERRL, EOMI, mucous membranes and oropharynx mildly dry Neck--supple. No JVD. No bruits. Thyroid normal, trachea midline, no adenopathy. Heart--normal S1 and S2. No murmurs, rubs or gallops. Lungs--Reduced and on auscultation Abdomen--normal bowel sounds and soft. Extremities--no cyanosis or clubbing. No edema. Dermatologic--normal skin turgor, normal color, no abnormal lymph nodes, no rash. Neurologic--cranial nerves II through XII grossly intact. Rheumatologic--normal range of motion. Psychiatric--normal affect. Results & Data Results & Data Vital Signs (Past 12 Hours) Vital Signs Temp Pulse Pulse Pulse Resp BP BP 06/02/25 15:36 37.0 C 76 18 121/58 L 06/02/25 11:26 36.7 C 66 18 114/63 06/02/25 08:10 06/02/25 07:26 36.7 C 79 18 125/62 06/02/25 06:45 66 06/02/25 05:13 36.7 C 76 20 131/57 L Pulse Ox O2 Del Method O2 Flow Rate 06/02/25 15:36 94 Nasal Cannula 2 06/02/25 11:26 92 Nasal Cannula 2 06/02/25 08:10 Nasal Cannula 2 06/02/25 07:26 95 Nasal Cannula 2 06/02/25 06:45 06/02/25 05:13 93 Nasal Cannula 2 Laboratory Results 06/02/25 06:54 WBC 14.10 H RBC 2.92 L Hgb 9.0 L Hct 26.4 L MCV 90.4 MCH 30.8 MCHC 34.1 RDW Std Deviation 41.4 RDW Coeff of Sidra 12.5 Plt Count 433 H MPV 9.0 L Immature Gran % (Auto) 0.7 Neut % (Auto) 76.0 Lymph % (Auto) 10.6 [place] % (Auto) 10.6 Eos % (Auto) 1.8 Baso % (Auto) 0.3 Neut # (Auto) 10.72 H Lymph # (Auto) 1.49 [place] # (Auto) 1.49 H Eos # (Auto) 0.26 Baso # (Auto) 0.04 Immature Gran # (Auto) 0.10 Sodium 136 Potassium 4.1 Chloride 101 Carbon Dioxide 26 Anion Gap 9 BUN 18 Creatinine 0.93 Est Cr Clr Drug Dosing 56.9 eGFR 80.97 BUN/Creatinine Ratio 19.4 Glucose 116 H Calcium 8.2 L Phosphorus 2.8 Magnesium 2.1 Total Bilirubin 0.5 AST 24 ALT 21 Alkaline Phosphatase 53 C-Reactive Protein 17.11 H Total Protein 6.1 Albumin 2.8 L Globulin 3.3 Albumin/Globulin Ratio 0.8 L Procalcitonin 0.12 PG Care Time/CCT Total # of Minutes Spent Total Time Spent with Patient: Total time spent is greater than 50% in coordination of care (as documented) at patient's floor/unit and/or counseling patient: Coding Level of Care Code 33077 SUB INP/OBS CARE 2/35MIN Diagnoses Postobstructive pneumonia J18.9 Lung mass R91.8 Primary hypertension I10 Hypertension type: primary hypertension (3) Hypertension Hypertension type: primary hypertension Qualified Code(s): I10 - Essential (primary) hypertension
[2025-06-02] MEDS: guaiFENesin 600 MG TABCR PO SCH (20:27)
[2025-06-03 07:47] LABS: Hematocrit (blood only) 26.9 % (42.0-52.0); Hemoglobin 9.0 g/dL (14.0-18.0); Immature Granulocytes # (auto) 0.18 K/uL (0.01-0.20); Immature Granulocytes % (auto) 1.1 %; Mean Corpuscular Hemoglobin 30.7 pg (25.0-34.0); Mean Corpuscular Volume 91.8 fL (80.0-100.0); Platelet Count 477 K/uL (130-400); RDW Standard Deviation 41.7 fL (36.4-46.3); Red Blood Count 2.93 M/uL (4.70-6.10); White Blood Count 15.78 K/ul (4.8-10.8)
[2025-06-03 08:08] LABS: Alanine Aminotransferase 20.0 U/L (7-52); Albumin Globulin Ratio 0.9 (0.9-2); Albumin Level 2.9 gm/dl (3.4-5.0); Alkaline Phosphatase 51.0 U/L (34-104); Anion Gap 8.0 (3-11); Bilirubin,Total 0.5 mg/dl (0.2-1.0); Blood Urea Nitrogen 18.0 mg/dl (6-23); Calcium 8.2 mg/dl (8.6-10.3); Carbon Dioxide 25.0 mmol/L (21-32); Chloride 103.0 mmol/L (98-107); Creatinine Clr Calc Pharmacy 56.0 ml/min; Globulin 3.2 gm/dl (2.5-4.0); Glucose 118.0 mg/dl (70-99(Fasting)); Magnesium 2.1 mg/dl (1.7-2.4); Potassium 4.3 mmol/L (3.5-5.1); Sodium 136.0 mmol/L (136-145); Total Protein 6.1 gm/dl (6.0-8.3)
--- NOTE | 2025-06-03 14:11 | Hospitalist Progress Note ---
Date of Service June 03, 2025 Assessment & Plan (1) Postobstructive pneumonia: (2) Lung mass: (3) Hypertension: Plan 84-year-old man with a right lower lobe lung mass which has been under workup since this summer who was admitted with postobstructive pneumonia. Initially thought to be probably infectious and took 3 weeks of antibiotics but saw no improvement. PET/CT a month ago with increase in hypermetabolic activity of the right lower lobe mass there was also a left ischial bony lesion and a pretracheal lymph node with increased uptake. he was scheduled for bronc and IR biopsy of the left ischial lesion this week. 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 CT showed evidence of a cavitary lesion. Of note, patient had bronchoscopy and EBUS in February 2025. Biopsy showed some rare atypical cells but no definitive carcinoma. BAL was positive for Corynebacterium for which the patient completed a course of antibiotics for 4 weeks. -PET scan done in April 22, 2025 shows significant uptake in the right lower cavitary lesion. -PET scan also picked up some lesion in the ischial area for which biopsy has been done, pathology pending -Sailing Master on board, he is now s/p CT-guided lung biopsy, pathology pending -Continue IV Zosyn For now, slight interval increase in EBC, continue to monitor -Transition to PO antibiotics upon discharge to rehab, CRP and white count finally downtrending, clinically stable - Downgrade to MedSurg, continuous pulse ox overnight. Encourage ambulation, therapy #Complex care needs. #Goals of care discussion - Uncertain clinical course until biopsy results return. Struggling with basic nutrition, appetite. -Given his uncertain projected clinical course poorly defined endpoints and the resulting stress family open to discussing with palliative care. Will place a consult #Leukocytosis - mild upward trend, see abx as above, trend CRP as well, clinically improving, generally stable - trend CRP and procal x 48h as well, downtrending last 24h #Severe Protein calorie malnutrition - See RD consult, supple.ment, remeron per psych, discussed megace, add probiotic - increase remeron to 15mg #Upper extremity shakes/tremors- seems to have been related to infection and has resolved #Hypertension- Continue atenolol and amlodipine with hold parameters #Hyperlipidemia- Continue atorvastatin #Back Pain Patient complaining of back pain on admit -stable at this time . #Anxiety/Panic #Depression: Patient has been in a very low mood, feeling depressed Refusing to participate in physical therapy Per psychiatry,Would start mirtazapine 7.5mg HS and can titrate to 15mg HS if needed -Recommend avoiding benzodiazepines unless necessary and then could consider use of lorazepam 0.5mg BID po prn for panic attack - Add hydroxozine 25mg BID PRN for Anxiety start DVT prophylaxis with enoxaparin Disposition: Will likely benefit from rehab, PT/OT on board, However patient refusing to participate in therapy Admission and Anticipated Discharge Date Admission Date: May 26, 2025 Subjective Doing about the same this morning mood is significantly better. Feeling quite to his care. No new complaints or concerns. He did have a panic/anxiety attack approximately he previously had hydroxyzine but was told looks not available on his as needed list. Continues to take the mirtazapine. Otherwise no significant improvement in his appetite overall. No new complaints or concerns. No problems with bowel or bladder function. Discussed at length with the patient and family management anxiety, depression, complex but emerging medical issues. They are open to discussing overall care goals with palliative care. No longer requiring telemetry. Will downgrade ca to re to med-surg to allow for more freedom, mobility Physical Exam Physical Exam: The patient is awake, alert and oriented 3, well developed and well nourished, normocephalic and atraumatic, lying in bed and in no acute distress. HEENT--PERRL, EOMI, mucous membranes and oropharynx mildly dry Neck--supple. No JVD. No bruits. Thyroid normal, trachea midline, no adenopathy. Heart--normal S1 and S2. No murmurs, rubs or gallops. Lungs--Reduced and on auscultation Abdomen--normal bowel sounds and soft. Extremities--no cyanosis or clubbing. No edema. Dermatologic--normal skin turgor, normal color, no abnormal lymph nodes, no rash. Neurologic--cranial nerves II through XII grossly intact. Rheumatologic--normal range of motion. Psychiatric--normal affect. Results & Data Results & Data Vital Signs (Past 12 Hours) Vital Signs Temp Pulse Pulse Resp BP BP Pulse Ox 06/03/25 11:23 36.2 C L 69 18 118/62 93 06/03/25 07:36 36.4 C L 75 18 121/63 96 06/03/25 07:34 67 06/03/25 03:16 36.8 C 66 18 127/55 L 96 O2 Del Method O2 Flow Rate 06/03/25 11:23 Nasal Cannula 2 06/03/25 07:36 Nasal Cannula 2 06/03/25 07:34 06/03/25 03:16 Nasal Cannula 2 Laboratory Results 06/03/25 07:22 WBC 15.78 H RBC 2.93 L Hgb 9.0 L Hct 26.9 L MCV 91.8 MCH 30.7 MCHC 33.5 RDW Std Deviation 41.7 RDW Coeff of Sidra 12.5 Plt Count 477 H MPV 8.8 L Immature Gran % (Auto) 1.1 Neut % (Auto) 78.8 Lymph % (Auto) 8.2 [place] % (Auto) 9.7 Eos % (Auto) 1.8 Baso % (Auto) 0.4 Neut # (Auto) 12.43 H Lymph # (Auto) 1.29 [place] # (Auto) 1.53 H Eos # (Auto) 0.28 Baso # (Auto) 0.07 Immature Gran # (Auto) 0.18 Sodium 136 Potassium 4.3 Chloride 103 Carbon Dioxide 25 Anion Gap 8 BUN 18 Creatinine 0.95 Est Cr Clr Drug Dosing 56.0 eGFR 78.93 BUN/Creatinine Ratio 18.9 Glucose 118 H Calcium 8.2 L Magnesium 2.1 Total Bilirubin 0.5 AST 21 ALT 20 Alkaline Phosphatase 51 C-Reactive Protein 15.35 H Total Protein 6.1 Albumin 2.9 L Globulin 3.2 Albumin/Globulin Ratio 0.9 PG Care Time/CCT Total # of Minutes Spent Total Time Spent with Patient: Total time spent is greater than 50% in coordination of care (as documented) at patient's floor/unit and/or counseling patient: Coding Level of Care Code 19546 SUB INP/OBS CARE 2/35MIN Diagnoses Postobstructive pneumonia J18.9 Lung mass R91.8 Primary hypertension I10 Hypertension type: primary hypertension (3) Hypertension Hypertension type: primary hypertension Qualified Code(s): I10 - Essential (primary) hypertension
[2025-06-03] MEDS ORDERED: PHA DELIRIUM CONSULT PRN (14:15)
--- NOTE | 2025-06-03 14:18 | Palliative Care Consultation ---
Date of Consultation June 03, 2025 Assessment & Plan (1) Cancer related pain: Pt c/o pain at site of biopsy, denied need for medication. States it is "gradually improving but worse than last time". We discussed physiology of pain s/p ebus vs needle biopsy of bone. (2) Counseling regarding goals of care: Met with pt and his Maira at bedside for ACP discussion. Maira and Dominguez have been 48yrs and have no children together, but Dominguez has three daughters and a son from prior marriage. They also have 12 grand children and 12 great grand children. Maira requests that we delay GOC discussion until pt's daughters can be present. She is arranging meeting for noon on Sunday06/05/25. (3) Palliative care by specialist: Introduced Palliative Medicine and explained our role in advanced care planning, symptom management and navigation through the progression of life limiting disease. Patient and/or family were receptive to palliative services for goals of care discussions. Reviewed we are different from hospice, a home health nurse visiting service. (4) Counseling regarding advanced directives and goals of care: Pt verbalized that HE trusts his Maira to serve as as primary proxy and his adult children jointly as secondary proxy for medical decisions in the event he lacks decisional capacity. Pt DOES NOT currently require a proxy for medical decisions. Plan ACP meeting scheduled for noon on 06/05/25 with pt's and children. History of Present Illness Reason for Consultation: goals of care Requesting Physician: Edwin Moss MD Attending Physician: Edwin Moss MD History of Present Illness 84-year-old man with a right lower lobe lung mass which has been under workup since this summer who was admitted with postobstructive pneumonia. Initially thought to be probably infectious and took 3 weeks of antibiotics but saw no improvement. PET/CT a month ago with increase in hypermetabolic activity of the right lower lobe mass there was also a left ischial bony lesion and a pretracheal lymph node with increased uptake. he was scheduled for bronc and IR biopsy of the left ischial lesion 05/26. He has been admitted for management of Cavitary lung mass with hemoptysis and postobstructive pneumonia: -Patient has been having ongoing hemoptysis for the past couple of months. CT showed evidence of a cavitary lesion. Of note, patient had bronchoscopy and EBUS in February 2025. Biopsy showed some rare atypical cells but no definitive carcinoma; BAL was positive for Corynebacterium for which the patient completed a course of antibiotics for 4 weeks; PET scan done in April 22, 2025 shows significant uptake in the right lower cavitary lesion as well as lesion in the ischial area for which biopsy has been done, also had CT-guided lung biopsy, pathology pending. Allergies Allergy/AdvReac Type Severity Reaction Status Date / Time amoxicillin [From Augmentin] AdvReac Mild severe Verified 04/24/25 13:02 nausea clavulanic acid AdvReac Mild severe Verified 04/24/25 13:02 [From Augmentin] nausea Home Medications Medication Instructions Recorded Confirmed Type lactobacillus combination no.4 15 15,000 mmu cells PO DAILY 02/17/25 05/25/25 History billion cell capsule omeprazole 20 mg capsule,delayed 40 mg PO DAILY 02/17/25 05/25/25 History release amlodipine 10 mg tablet 10 mg PO QAM #90 tabs 03/16/25 05/25/25 Rx atorvastatin 10 mg tablet 10 mg PO HS #90 tabs 03/16/25 05/25/25 Rx atenolol 25 mg tablet 25 mg PO QAM #30 tabs 05/15/25 05/25/25 Rx Patient History Medical History History of bradycardia (02/18/25) Hypertension GERD (gastroesophageal reflux disease) Bleeding disorder Lung mass Enlarged prostate with lower urinary tract symptoms (LUTS) JAYLAN (generalized anxiety disorder) Dyslipidemia Chronic osteoarthritis Syncope Witnessed seizure-like activity (02/17/25) Melanoma in situ Tubular adenoma of colon Transitional cell carcinoma of bladder Family history of melanoma Decreased hearing Surgical History Hx of cataract extraction (2022) Hx of wisdom tooth extraction Hx of melanoma excision H/O colonoscopy History of hernia surgery History of bladder surgery (~1997) Family History Unknown Skin cancer Heart disease Diabetes Sister Breast cancer Lung cancer Denies family history of Ovarian cancer Prostate cancer Myocardial infarction Colorectal cancer Stroke Social History Smoking Status: Former smoker Tobacco Type: Cigarettes Age Started Using Tobacco: 16; Age Quit Using Tobacco: 81; packs per day: 1; Cigarettes Per Day: quit 30 years ago x 25 years- started smoking again x 1 year- stop 3 years; Second Hand Exposure: No; Do You Dip or Chew Tobacco: No; Hx Alcohol Use: No Hx Substance Use: No Preferred Language: Belarusian Communication Ability: Effective Visual Impairment: Limited Hearing Ability: Hard of Hearing Pool Installer Required: No Beliefs That Will Affect Care: None marital status: Current Living Situation: Spouse current occupational status: retired 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 How many Children do You have: 4 Feels Safe at Home: Yes Childhood Exposure to Second-Hand Smoke: Yes (thinks father did ) Diet: regular caffeine: Yes (coffee) during the past year weight has: remained stable Dental Care, Regularly: No Physical Activity Frequency: Does not Exercise Seatbelt Use: always Sunscreen Use: No Assistive Devices: None Review of Systems Review of Systems: All systems reviewed & are unremarkable except as noted in HPI & below Physical Exam Constitutional: well developed, + ill appearing and + thin; no acute distress Eyes: PERRL, conjunctivae normal, anicteric sclerae Respiratory: normal respiratory effort, lungs clear to auscultation Gastrointestinal (Abdomen): normal bowel sounds, soft, nontender, no hepatosplenomegaly Psychiatric: A+Ox3, euthymic affect Results & Data Vital Signs (Past 12 Hours) Vital Signs Temp Pulse Pulse Resp BP BP Pulse Ox 06/03/25 14:08 06/03/25 11:23 36.2 C L 69 18 118/62 93 06/03/25 07:36 36.4 C L 75 18 121/63 96 06/03/25 07:34 67 06/03/25 03:16 36.8 C 66 18 127/55 L 96 O2 Del Method O2 Flow Rate 06/03/25 14:08 Nasal Cannula 2 06/03/25 11:23 Nasal Cannula 2 06/03/25 07:36 Nasal Cannula 2 06/03/25 07:34 06/03/25 03:16 Nasal Cannula 2 Laboratory Results Abnormal lab results 06/03/25 Range/Units 07:22 WBC 15.78 H (4.8-10.8) K/ul RBC 2.93 L (4.70-6.10) M/uL Hgb 9.0 L (14.0-18.0) g/dL Hct 26.9 L (42.0-52.0) % Plt Count 477 H (130-400) K/uL MPV 8.8 L (9.4-12.4) fL Neut # (Auto) 12.43 H (1.40-6.50) K/uL Taylor # (Auto) 1.53 H (0.11-0.59) K/uL Glucose 118 H (70-99(Fasting)) mg/dl Calcium 8.2 L (8.6-10.3) mg/dl C-Reactive Protein 15.35 H (0-0.5) mg/dl Albumin 2.9 L (3.4-5.0) gm/dl Diagnostic Findings Chest CT 05/26/25 00:12 EXAM: CT chest diagnostic wo con CLINICAL HISTORY: post obstructive RLL pneumonia TECHNIQUE: Contiguous axial images were obtained from the neck base through the upper abdomen without contrast. In addition, sagittal and coronal reconstructions were performed to potentially increase the sensitivity for the detection of disease. CT scan was performed according to ALARA (as low as reasonable achievable). COMPARISON: 02/17/2025 FINDINGS: Interval increase in soft tissue density with internal air foci and surrounding ground-glass opacities in right lower lobe, measures approximately 80 x 65 mm in current study versus 50 x 60 mm in prior study Interval unchanged paraseptal and centrilobular emphysematous changes in bilateral lung gunderson. Rest of the lungs are clear. The central airways are patent. There are no pleural effusions. No pneumothorax is seen. Evaluation of the mediastinum and galen is limited due to the lack of intravenous contrast. Interval increase in enlarged mediastinal lymph nodes, largest measuring approximately 11 mm in current study No axillary adenopathy is identified. The thyroid is unremarkable. The heart, aorta, and pulmonary arteries are of normal size and configuration. There are coronary artery and aortic atherosclerotic calcifications. No pericardial effusion is identified. Imaged portions of the upper abdomen are unremarkable. No aggressive appearing osseous lesions are identified. Degenerative changes in visualised spine IMPRESSION: Mild interval increase in size of soft tissue density with internal air foci and surrounding ground-glass opacities in right lower lobe. Interval increase in mediastinal lymphadenopathy. Interval unchanged paraseptal and centrilobular emphysematous changes in bilateral lung gunderson. Electronically signed by Walton Tenzin 05-26-2025 01:[address] 05/26/25 08:44 CT guided left ischial bone lesion core biopsy INDICATION: FDG avid left ischial bone lesion; lung mass PROCEDURE: Procedure and risks were explained. Informed consent was obtained. Final timeout was completed. The patient was placed prone on the CT exam table. The left gluteal region was prepped and draped in sterile fashion. 1% lidocaine was utilized for skin anesthesia. Utilizing CT guidance, an 11-gauge bone biopsy needle was advanced into the left ischio bone lesion. 1 core was obtained and given to the pathologist for review. The needle was removed and Band-Aid applied. The patient tolerated the procedure well. IMPRESSION: Left ischial bone lesion core biopsy as above. Performed, dictated, and signed by Tom Lewis PA-C; to be co-signed by Dr. Neri Vizcarra. Electronically signed by: Neri Vizcarra M.D. 05/26/2025 2:[address] 05/29/25 08:30 CT-guided right lung mass core biopsy INDICATION: Right lower lobe lung mass PROCEDURE: Procedure and risks were explained. Informed consent was obtained. Final timeout was completed. The patient was placed in a left decubitus position on the CT exam table. The right lateral thorax was prepped and draped in sterile fashion. 1% lidocaine was utilized for skin anesthesia. The patient received 25 mcg fentanyl IV. Utilizing CT guidance, a 19-gauge coaxial needle was advanced since the right lower lobe lung mass. A 20-gauge core biopsy needle was then advanced, and 3 cores were obtained and given to the pathologist for review. The coaxial needle was removed and Band-Aid applied. The patient tolerated the procedure well. Post CT imaging demonstrated no immediate complication. Vital signs will be monitored on the floor. IMPRESSION: Right lung mass core biopsy as above. Performed, dictated, and signed by Tom Lewis PA-C; to be co-signed by Dr. Neri Vizcarra. Electronically signed by: Neri Vizcarra M.D. 05/29/2025 2:06 PM Chest X-Ray 05/31/25 09:41 Exam: AP Portable Chest Exam reason: Follow-up Comparison: 05/30/2025 Technique: A single AP portable view of the chest was obtained Findings: The lungs are well-expanded. There is redemonstration of a small loculated appearing right-sided pleural effusion. There is blunting of the left costophrenic angle. There is ill-defined right lower lung zone consolidation. The cardiac and mediastinal silhouettes are within normal limits. There is no pneumothorax and no acute bony abnormalities are seen. Impression: 1. No significant change in appearance of the chest. There is redemonstration of a small right-sided pleural effusion with likely associated atelectasis or pneumonia in the right lower lobe. 2. There is a trace left-sided pleural effusion. Electronically signed by Camron Gastelum 05-31-2025 10:40 AM Medications Administered Current Inpatient Medications Acetaminophen (Acetaminophen 325 Mg Tab) 650 mg PO Q4H PRN PRN Reason: Pain or Fever Stop: 06/25/25 02:06 Last Admin: 05/31/25 10:27 Dose: 650 mg Albuterol (Albut/Ipratrop 3mg/0.5mg Neb 3 Ml Vial) 3 ml NEB Q2H PRN; Protocol PRN Reason: dyspnea Stop: 06/25/25 00:18 Amlodipine Besylate (Amlodipine Besylate 5 Mg Tab) 10 mg PO QAM MELISA Stop: 06/25/25 08:59 Last Admin: 06/03/25 08:51 Dose: 10 mg Atenolol (Atenolol 25 Mg Tablet) 25 mg PO QAM MELISA Stop: 06/25/25 08:59 Last Admin: 06/03/25 08:51 Dose: 25 mg Atorvastatin Calcium (Atorvastatin 10 Mg Tab) 10 mg PO HS MELISA Stop: 06/25/25 20:59 Last Admin: 06/02/25 20:28 Dose: 10 mg Enoxaparin Sodium (Enoxaparin Inj 40 Mg/0.4 Ml Syr) 40 mg SQ HS MELISA Stop: 06/25/25 20:59 Last Admin: 06/02/25 20:28 Dose: 40 mg Guaifenesin (Guaifenesin 600 Mg Tabcr) 600 mg PO Q12 MELISA Stop: 07/02/25 20:59 Last Admin: 06/03/25 08:51 Dose: 600 mg Hydroxyzine HCl (Hydroxyzine Hcl 25 Mg Tab) 25 mg PO BID PRN PRN Reason: Anxiety Stop: 07/03/25 12:04 Piperacillin Sod/Tazobactam Sod (Zosyn) 4.5 gm in 100 mls @ 25 mls/hr IV Q8H MELISA; Protocol Stop: 06/04/25 13:59 Last Admin: 06/03/25 14:29 Dose: 25 mls/hr Lactobacillus Acidophilus (Advanced Probiotic 625 Mg Capsule) 1,250 mg PO DAILY MELISA Stop: 06/25/25 08:59 Last Admin: 06/03/25 08:51 Dose: 1,250 mg Mirtazapine (Mirtazapine Tab 15 Mg Tab) 15 mg PO HS MELISA Stop: 07/03/25 20:59 Miscellaneous (Pha Delirium Consult) 1 ea N/A PRN PRN PRN Reason: Consult Stop: 07/03/25 14:14 Ondansetron HCl (Ondansetron Inj 2 Mg/Ml 2 Ml Vial) 4 mg IV Q6H PRN PRN Reason: Nausea And Vomiting Stop: 06/25/25 20:14 Last Admin: 06/01/25 20:56 Dose: 4 mg Pantoprazole Sodium (Pantoprazole 40 Mg Tab) 40 mg PO DAILY [facility] Stop: 06/25/25 08:59 Last Admin: 06/03/25 08:51 Dose: 40 mg Potassium Chloride (Potassium Chloride Crtab 20 Meq Tabcr) 20 meq PO BID MELISA Stop: 07/04/25 20:59 Last Admin: 06/03/25 08:51 Dose: 20 meq PG Care Time/CCT Total # of Minutes Spent Total Time Spent with Patient: Total time spent is greater than 50% in coordination of care (as documented) at patient's floor/unit and/or counseling patient: [place] [address] IN/OBS CONSULT LVL 4,60M Patient Type New History Expanded Problem Focused Exam Expanded Problem Focused Medical Decision Making Moderate Complexity Diagnoses Cancer related pain G89.3 Counseling regarding goals of care Z71.89 Palliative care by specialist Z51.5 Counseling regarding advanced directives and goals of care Z71.89
[2025-06-03] MEDS: MIRTAZAPINE TAB 15 MG TAB PO SCH (21:20)
[2025-06-04 07:21] LABS: Creatinine Clr Calc Pharmacy 64.1 ml/min
--- NOTE | 2025-06-04 15:42 | Hospitalist Progress Note ---
Date of Service June 04, 2025 Assessment & Plan (1) Postobstructive pneumonia: (2) Lung mass: (3) Hypertension: Plan 84-year-old man with a right lower lobe lung mass which has been under workup since this summer who was admitted with postobstructive pneumonia. Initially thought to be probably infectious and took 3 weeks of antibiotics but saw no improvement. PET/CT a month ago with increase in hypermetabolic activity of the right lower lobe mass there was also a left ischial bony lesion and a pretracheal lymph node with increased uptake. he was scheduled for bronc and IR biopsy of the left ischial lesion this week. 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 CT showed evidence of a cavitary lesion. Of note, patient had bronchoscopy and EBUS in February 2025. Biopsy showed some rare atypical cells but no definitive carcinoma. BAL was positive for Corynebacterium for which the patient completed a course of antibiotics for 4 weeks. -PET scan done in April 22, 2025 shows significant uptake in the right lower cavitary lesion. -PET scan also picked up some lesion in the ischial area for which biopsy has been done, pathology pending -Classics Professor on board, he is now s/p CT-guided lung biopsy, pathology pending -Continue IV Zosyn For now, slight interval increase in EBC, continue to monitor -Transition to PO antibiotics upon discharge to rehab, CRP and white count finally downtrending, clinically stable - Downgrade to MedSurg, continuous pulse ox overnight. Encourage ambulation, therapy - Clinically improving, no change, awatign Bx results #Complex care needs. #Goals of care discussion - Uncertain clinical course until biopsy results return. Struggling with basic nutrition, appetite. -Given his uncertain projected clinical course poorly defined endpoints and the resulting stress family open to discussing with palliative care. Will place a consult -Family Care Conference Tomorrow #Leukocytosis - mild upward trend, see abx as above, trend CRP as well, clinically improving, generally stable - trend CRP and procal x 48h as well, downtrending last 24h - No clinical decompensation, impriving CRP #Severe Protein calorie malnutrition - See RD consult, supple.ment, remeron per psych, discussed megace, add probiotic - tolerating increased remeron at 15mg #Upper extremity shakes/tremors- seems to have been related to infection and has resolved #Hypertension- Continue atenolol and amlodipine with hold parameters #Hyperlipidemia- Continue atorvastatin #Back Pain Patient complaining of back pain on admit -stable at this time . #Anxiety/Panic #Depression: Patient has been in a very low mood, feeling depressed Refusing to participate in physical therapy Per psychiatry,Would start mirtazapine 7.5mg HS and can titrate to 15mg HS if needed -Recommend avoiding benzodiazepines unless necessary and then could consider use of lorazepam 0.5mg BID po prn for panic attack - Add hydroxozine 25mg BID PRN for Anxiety start DVT prophylaxis with enoxaparin Disposition: Will likely benefit from rehab, PT/OT on board, However patient refusing to participate in therapy Admission and Anticipated Discharge Date Admission Date: May 26, 2025 Subjective Doing better today. He was actually up in the wheelchair to trips around the hallway. Has been up and about more in the room and sitting in the bedside chair. Actually had some appetite and ate some miranda Jell-O. He is working and satisfied that food is better have the appetite and interest is still quite low. Tolerating increase in mirtazapine well. No other new complaints or concerns. He thinks his breathing is continuing to improve albeit slowly Physical Exam Physical Exam: The patient is awake, alert and oriented 3, well developed and well nourished, normocephalic and atraumatic, lying in bed and in no acute distress. HEENT--PERRL, EOMI, mucous membranes and oropharynx mildly dry Neck--supple. No JVD. No bruits. Thyroid normal, trachea midline, no adenopathy. Heart--normal S1 and S2. No murmurs, rubs or gallops. Lungs--Reduced and on auscultation Abdomen--normal bowel sounds and soft. Extremities--no cyanosis or clubbing. No edema. Dermatologic--normal skin turgor, normal color, no abnormal lymph nodes, no rash. Neurologic--cranial nerves II through XII grossly intact. Rheumatologic--normal range of motion. Psychiatric--normal affect. Results & Data Results & Data Vital Signs (Past 12 Hours) Vital Signs Temp Pulse Resp BP Pulse Ox O2 Del Method O2 Flow Rate 11/27/25 15:25 37.5 C 68 18 113/67 94 Nasal Cannula 2 06/04/25 10:29 Nasal Cannula 2 06/04/25 07:29 37.3 C 74 18 129/63 95 Nasal Cannula 2 Laboratory Results 06/04/25 06:16 Creatinine 0.83 Est Cr Clr Drug Dosing 64.1 eGFR 86.30 PG Care Time/CCT Total # of Minutes Spent Total Time Spent with Patient: Total time spent is greater than 50% in coordination of care (as documented) at patient's floor/unit and/or counseling patient: Coding Level of Care Code 14452 SUB INP/OBS CARE 2/35MIN Diagnoses Postobstructive pneumonia J18.9 Lung mass R91.8 Primary hypertension I10 Hypertension type: primary hypertension (3) Hypertension Hypertension type: primary hypertension Qualified Code(s): I10 - Essential (primary) hypertension
[2025-06-05 06:57] LABS: Hematocrit (blood only) 27.2 % (42.0-52.0); Hemoglobin 9.2 g/dL (14.0-18.0); Immature Granulocytes # (auto) 0.17 K/uL (0.01-0.20); Immature Granulocytes % (auto) 1.1 %; Mean Corpuscular Hemoglobin 30.6 pg (25.0-34.0); Mean Corpuscular Volume 90.4 fL (80.0-100.0); Platelet Count 605 K/uL (130-400); RDW Standard Deviation 41.6 fL (36.4-46.3); Red Blood Count 3.01 M/uL (4.70-6.10); White Blood Count 15.29 K/ul (4.8-10.8)
[2025-06-05 07:22] LABS: Alanine Aminotransferase 19.0 U/L (7-52); Albumin Globulin Ratio 0.9 (0.9-2); Albumin Level 3.0 gm/dl (3.4-5.0); Alkaline Phosphatase 50.0 U/L (34-104); Anion Gap 9.0 (3-11); Bilirubin,Total 0.4 mg/dl (0.2-1.0); Blood Urea Nitrogen 11.0 mg/dl (6-23); Calcium 8.3 mg/dl (8.6-10.3); Carbon Dioxide 23.0 mmol/L (21-32); Chloride 103.0 mmol/L (98-107); Creatinine Clr Calc Pharmacy 70.0 ml/min; Globulin 3.2 gm/dl (2.5-4.0); Glucose 113.0 mg/dl (70-99(Fasting)); Magnesium 2.1 mg/dl (1.7-2.4); Potassium 4.5 mmol/L (3.5-5.1); Sodium 135.0 mmol/L (136-145); Total Protein 6.2 gm/dl (6.0-8.3)
[2025-06-05] MEDS ORDERED: PROCHLORPERAZINE 10 MG in SYRINGE 8 ML IV PRN (13:16)
--- NOTE | 2025-06-05 13:22 | Palliative Family Discussion ---
Date of Service June 05, 2025 Patient Directed Conference Time of Meetin:00 - 12:45 Participants: Trinity CASTAÑEDA, Edwin Moss MD Patient participation: yes Patient Support System: spouse and adult daughters Other Healthcare Provider Participation: None Meeting Location: bedside Advanced Directive available: no If yes, descriptors: The patient's surrogate medical decision maker participated: and two daughters Legally authorized health care proxy: Pt verbalized that he trusts his Maira to serve as as primary proxy for medical decisions in the event he lacks decisional capacity. Pt does not currently require a proxy for medical decisions. Other surrogate: n/a A family meeting was held for Linus Phillips. This meeting was necessary for determining the appropriate course of treatment. Topics of Discussion Topics of Discussion: 1. Opportunity given for participants to speak and ask questions. 2. Participants were assured of attention to patient comfort. 3. Reassurance provided. 4. Support was provided for informed, good-nikhil decisions. 5. Emotions expressed by family were acknowledged and addressed. 6. Follow-up Outpatient: TBD 7. Plan of Care: full code We discussed at length the patient's acute and chronic medical conditions, general prognosis, treatment options, and goals of care. Dr Moss was present and gave medical updates, discussed that the main challenges to patients health at the moment are his weakness and his nutritional status and discussed potential need for supplemental artificial nutrition. Pt's questioned biopsy results and the presumptive Dx of cancer. We discussed pending oncology consultation and pt's weakness and poor nutritional status as potential barriers to cancer directed treatments. Pt emphasized his desire to improve his health in hopes to prolong his life with cancer directed treatments. He shared that he most values quality time with family especially his 12 grand children and 12 great grand children. He share willingness to "do whatever it takes" to get healthy and go home. He shared willingness to work with PT/OT and commitment to improving his nutrition including feeding tube placement or TPN if deemed appropriate. Discussed feasibility of attending rehab to optimize his strength and functional independence. Discussed what goals/wishes would be if rehab goes poorly. Discussed code status and helped patient and family understand that CPR is only done after a person has and involves uncomfortable and invasive procedures that, if successful. have high risk of multiple complications including but not limited to rib fractures, pneumo/hemothorax, CAYETANO, ventilator dependence, anoxic brain injury, and parts counterman/permanent cognitive and functional deficits. Patient's daughtersrequest time to consider all of this information and discuss cancer prognosis/treatment options with oncologist prior to any decisions. Time Involved in Meeting: I spent 50 minutes overall addressing this case: 10 in medical data review/discussion with referring provider(s) and/or preparation for the visit 30 in direct interaction with the patient and family 30 Advance Care Planning/Goals of Care discussions as detailed above in note (must be >16min) 5 in subsequent review and synthesis of assessment and plan 5 in communicating with other providers regarding the patient's case: CHELSI, Primary team
--- NOTE | 2025-06-05 14:08 | Hospitalist Progress Note ---
Date of Service June 05, 2025 Assessment & Plan (1) Postobstructive pneumonia: (2) Lung mass: (3) Hypertension: Plan 84-year-old man with a right lower lobe lung mass which has been under workup since this summer who was admitted with postobstructive pneumonia. Initially thought to be probably infectious and took 3 weeks of antibiotics but saw no improvement. PET/CT a month ago with increase in hypermetabolic activity of the right lower lobe mass there was also a left ischial bony lesion and a pretracheal lymph node with increased uptake. he was scheduled for bronc and IR biopsy of the left ischial lesion this week. 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 CT showed evidence of a cavitary lesion. Of note, patient had bronchoscopy and EBUS in February 2025. Biopsy showed some rare atypical cells but no definitive carcinoma. BAL was positive for Corynebacterium for which the patient completed a course of antibiotics for 4 weeks. -PET scan done in April 22, 2025 shows significant uptake in the right lower cavitary lesion. -PET scan also picked up some lesion in the ischial area for which biopsy has been done, pathology pending -[employer] on board, he is now s/p CT-guided lung biopsy, pathology pending -Continue IV Zosyn For now, slight interval increase in EBC, continue to monitor -Transition to PO antibiotics upon discharge to rehab, CRP and white count finally downtrending, clinically stable - Downgrade to MedSurg, continuous pulse ox overnight. Encourage ambulation, therapy - Clinically improving, no change, awatign Bx results discusssion with heme/onc #Complex care needs. #Goals of care discussion - Uncertain clinical course until biopsy results return. Struggling with basic nutrition, appetite. -Given his uncertain projected clinical course poorly defined endpoints and the resulting stress family open to discussing with palliative care. Will place a consult -Family Care Conference , see palliative notes, very interested in pursuing whatever supportive medicines/cares that will lead to improved nutrition/reserve and ultimately with the goal of maximize chances to return home irrespective of oncology recs/decision #Leukocytosis - mild upward trend, see abx as above, trend CRP as well, clinically improving, generally stable - trend CRP and procal x 48h as well, downtrending last 24h - No clinical decompensation, stable CRP #Severe Protein calorie malnutrition - See RD consult, supple.ment, remeron per psych, discussed megace, add probiotic - tolerating increased remeron at 15mg, overall seems to be having positive impact, to early to tell overall #Upper extremity shakes/tremors- seems to have been related to infection and has resolved, seems to occur after longer periods without any caloric intake. #Hypertension- Continue atenolol and amlodipine with hold parameters #Hyperlipidemia- Continue atorvastatin #Back Pain Patient complaining of back pain on admit -stable at this time . #Anxiety/Panic #Depression: Patient has been in a very low mood, feeling depressed Refusing to participate in physical therapy Per psychiatry,Would start mirtazapine 7.5mg HS and can titrate to 15mg HS if needed -Recommend avoiding benzodiazepines unless necessary and then could consider use of lorazepam 0.5mg BID po prn for panic attack - Add hydroxozine 25mg BID PRN for Anxiety, consider haldol if needed start DVT prophylaxis with enoxaparin Disposition: Will likely benefit from rehab, PT/OT on board, However patient refusing to participate in therapy Admission and Anticipated Discharge Date Admission Date: May 26, 2025 Subjective Patient having a "rough morning" this morning compared to yesterday. Low appetite. No interest in eating. No new issues with bowel or bladder function. Has not been u p with PT as of yet. Lengthy visit with the patient his and 2 daughters in regards to overall goals of care with palliative care. Patient is interested in pursuing more aggressive therapy for bowel support. Will start with scheduled antiemetics. He is very well-known to consider PEG tube as well. Will review with nutrition for daily calorie counts. Physical Exam Physical Exam: The patient is awake, alert and oriented 3, well developed and well nourished, normocephalic and atraumatic, lying in bed and in no acute distress. HEENT--PERRL, EOMI, mucous membranes and oropharynx very dry Neck--supple. No JVD. No bruits. Thyroid normal, trachea midline, no adenopathy. Heart--normal S1 and S2. No murmurs, rubs or gallops. Lungs--Reduced and on auscultation Abdomen--normal bowel sounds and soft. Extremities--no cyanosis or clubbing. No edema. Dermatologic--normal skin turgor, normal color, no abnormal lymph nodes, no rash. Neurologic--cranial nerves II through XII grossly intact. Rheumatologic--normal range of motion. Psychiatric--normal affect. Results & Data Results & Data Vital Signs (Past 12 Hours) Vital Signs Temp Pulse Resp BP Pulse Ox O2 Del Method O2 Flow Rate 06/05/25 12:28 37.2 C 68 16 119/63 94 Nasal Cannula 3 06/05/25 11:24 Nasal Cannula 2 06/05/25 07:41 36.6 C 78 16 124/65 94 Nasal Cannula 3 Laboratory Results 06/05/25 06/05/25 12:17 06:01 WBC 15.29 H RBC 3.01 L Hgb 9.2 L Hct 27.2 L MCV 90.4 MCH 30.6 MCHC 33.8 RDW Std Deviation 41.6 RDW Coeff of Sidra 12.6 Plt Count 605 H MPV 8.8 L Immature Gran % (Auto) 1.1 Neut % (Auto) 76.8 Lymph % (Auto) 9.5 [place] % (Auto) 9.8 Eos % (Auto) 2.4 Baso % (Auto) 0.4 Neut # (Auto) 11.74 H Lymph # (Auto) 1.46 [place] # (Auto) 1.50 H Eos # (Auto) 0.36 Baso # (Auto) 0.06 Immature Gran # (Auto) 0.17 Sodium 135 L Potassium 4.5 Chloride 103 Carbon Dioxide 23 Anion Gap 9 BUN 11 Creatinine 0.76 Est Cr Clr Drug Dosing 70.0 eGFR 88.63 BUN/Creatinine Ratio 14.5 Glucose 113 H POC Glucose 144 H Calcium 8.3 L Magnesium 2.1 Total Bilirubin 0.4 AST 17 ALT 19 Alkaline Phosphatase 50 C-Reactive Protein 15.00 H Total Protein 6.2 Albumin 3.0 L Globulin 3.2 Albumin/Globulin Ratio 0.9 PG Care Time/CCT Total # of Minutes Spent Total Time Spent with Patient: Total time spent is greater than 50% in coordination of care (as documented) at patient's floor/unit and/or counseling patient: Coding Level of Care Code 07387 SUB INP/OBS CARE 2/35MIN Diagnoses Postobstructive pneumonia J18.9 Lung mass R91.8 Primary hypertension I10 Hypertension type: primary hypertension (3) Hypertension Hypertension type: primary hypertension Qualified Code(s): I10 - Essential (primary) hypertension
[2025-06-05] MEDS: ONDANSETRON INJ 2 MG/ML 2 ML VIAL IV SCH (16:27)
[2025-06-06 07:03] LABS: Hematocrit (blood only) 26.9 % (42.0-52.0); Hemoglobin 9.3 g/dL (14.0-18.0); Immature Granulocytes # (auto) 0.12 K/uL (0.01-0.20); Immature Granulocytes % (auto) 0.8 %; Mean Corpuscular Hemoglobin 31.2 pg (25.0-34.0); Mean Corpuscular Volume 90.3 fL (80.0-100.0); Platelet Count 654 K/uL (130-400); RDW Standard Deviation 41.1 fL (36.4-46.3); Red Blood Count 2.98 M/uL (4.70-6.10); White Blood Count 15.08 K/ul (4.8-10.8)
[2025-06-06 07:34] LABS: Alanine Aminotransferase 18.0 U/L (7-52); Albumin Globulin Ratio 0.9 (0.9-2); Albumin Level 2.9 gm/dl (3.4-5.0); Alkaline Phosphatase 50.0 U/L (34-104); Anion Gap 7.0 (3-11); Bilirubin,Total 0.4 mg/dl (0.2-1.0); Blood Urea Nitrogen 12.0 mg/dl (6-23); Calcium 8.4 mg/dl (8.6-10.3); Carbon Dioxide 24.0 mmol/L (21-32); Chloride 102.0 mmol/L (98-107); Creatinine Clr Calc Pharmacy 62.9 ml/min; Globulin 3.4 gm/dl (2.5-4.0); Glucose 110.0 mg/dl (70-99(Fasting)); Magnesium 2.0 mg/dl (1.7-2.4); Potassium 4.7 mmol/L (3.5-5.1); Sodium 133.0 mmol/L (136-145); Total Protein 6.3 gm/dl (6.0-8.3)
--- NOTE | 2025-06-06 10:07 | Hospitalist Progress Note ---
Date of Service June 06, 2025 Assessment & Plan (1) Postobstructive pneumonia: (2) Lung mass: (3) Hypertension: Plan 84-year-old man with a right lower lobe lung mass which has been under workup since this summer who was admitted with postobstructive pneumonia. Initially thought to be probably infectious and took 3 weeks of antibiotics but saw no improvement. PET/CT a month ago with increase in hypermetabolic activity of the right lower lobe mass there was also a left ischial bony lesion and a pretracheal lymph node with increased uptake. he was scheduled for bronc and IR biopsy of the left ischial lesion this week. 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 CT showed evidence of a cavitary lesion. Of note, patient had bronchoscopy and EBUS in February 2025. Biopsy showed some rare atypical cells but no definitive carcinoma. BAL was positive for Corynebacterium for which the patient completed a course of antibiotics for 4 weeks. -PET scan done in April 22, 2025 shows significant uptake in the right lower cavitary lesion. -PET scan also picked up some lesion in the ischial area for which biopsy has been done, pathology pending -[employer] on board, he is now s/p CT-guided lung biopsy, pathology pending -Continue IV Zosyn For now, slight interval increase in EBC, continue to monitor -Transition to PO antibiotics upon discharge to rehab, CRP and white count finally downtrending, clinically stable - Downgrade to MedSurg, continuous pulse ox overnight. Encourage ambulation, therapy - Clinically improving, no change, awatign Bx results discusssion with heme/onc #Complex care needs. #Goals of care discussion - Uncertain clinical course until biopsy results return. Struggling with basic nutrition, appetite. -Given his uncertain projected clinical course poorly defined endpoints and the resulting stress family open to discussing with palliative care. Will place a consult -Family Care Conference , see palliative notes, very interested in pursuing whatever supportive medicines/cares that will lead to improved nutrition/reserve and ultimately with the goal of maximize chances to return home irrespective of oncology recs/decision - See Palliative notes and line above from discussion 06/05 #Hyponatremia - mild, improving PO intake, continue to monitor #Leukocytosis - mild upward trend, see abx as above, trend CRP as well, clinically improving, generally stable - trend CRP and procal x 48h as well, downtrending last 24h - No clinical decompensation, stable CRP and Leuks #Severe Protein calorie malnutrition - See RD consult, supple.ment, remeron per psych, discussed megace, add probiotic - tolerating increased remeron at 15mg, overall seems to be having positive impact, to early to tell overall - Scheduled zofran and remeron, ongoing steady improvement, consider PEG early in the week #Upper extremity shakes/tremors- seems to have been related to infection and has resolved, seems to occur after longer periods without any caloric intake. - no recurrence #Hypertension- Continue atenolol and amlodipine with hold parameters #Hyperlipidemia- Continue atorvastatin #Back Pain Patient complaining of back pain on admit -stable at this time . #Anxiety/Panic #Depression: Patient has been in a very low mood, feeling depressed Refusing to participate in physical therapy Per psychiatry,Would start mirtazapine 7.5mg HS and can titrate to 15mg HS if needed -Recommend avoiding benzodiazepines unless necessary and then could consider use of lorazepam 0.5mg BID po prn for panic attack - Add hydroxozine 25mg BID PRN for Anxiety, consider haldol if needed start DVT prophylaxis with enoxaparin Disposition: Will likely benefit from rehab, PT/OT on board, However patient refusing to participate in therapy Admission and Anticipated Discharge Date Admission Date: May 26, 2025 Subjective Reported that he was evaluated yesterday.. Slept better. Has been taking scheduled Zofran and his oral intake and subjective Eduardo states things have improved. States he has been drinking well water. Thus far tolerating things well with no significant nausea or vomiting. He was attempting to take a boost shake and water certainly with more interested in seeing previous days. Otherwise no new events or concerns. No new or different symptoms. No events per nursing Physical Exam Physical Exam: The patient is awake, alert and oriented 3, well developed and well nourished, normocephalic and atraumatic, lying in bed and in no acute distress. HEENT--PERRL, EOMI, mucous membranes and oropharynx very dry Neck--supple. No JVD. No bruits. Thyroid normal, trachea midline, no adenopathy. Heart--normal S1 and S2. No murmurs, rubs or gallops. Lungs--Reduced and on auscultation Abdomen--normal bowel sounds and soft. Extremities--no cyanosis or clubbing. No edema. Dermatologic--normal skin turgor, normal color, no abnormal lymph nodes, no rash. Neurologic--cranial nerves II through XII grossly intact. Rheumatologic--normal range of motion. Psychiatric--normal affect. Results & Data Results & Data Vital Signs (Past 12 Hours) Vital Signs Temp Pulse Resp BP BP Pulse Ox O2 Del Method 06/06/25 07:44 36.6 C 94 H 18 115/65 94 Nasal Cannula 06/05/25 23:15 36.6 C 73 18 128/65 97 Nasal Cannula O2 Flow Rate 06/06/25 07:44 2 06/05/25 23:15 3 Laboratory Results 06/06/25 06/05/25 06:46 12:17 WBC 15.08 H RBC 2.98 L Hgb 9.3 L Hct 26.9 L MCV 90.3 MCH 31.2 MCHC 34.6 RDW Std Deviation 41.1 RDW Coeff of Sidra 12.4 Plt Count 654 H MPV 8.6 L Immature Gran % (Auto) 0.8 Neut % (Auto) 77.9 Lymph % (Auto) 9.0 [place] % (Auto) 10.1 Eos % (Auto) 1.9 Baso % (Auto) 0.3 Neut # (Auto) 11.74 H Lymph # (Auto) 1.36 [place] # (Auto) 1.52 H Eos # (Auto) 0.29 Baso # (Auto) 0.05 Immature Gran # (Auto) 0.12 Sodium 133 L Potassium 4.7 Chloride 102 Carbon Dioxide 24 Anion Gap 7 BUN 12 Creatinine 0.83 Est Cr Clr Drug Dosing 62.9 eGFR 86.30 BUN/Creatinine Ratio 14.5 Glucose 110 H POC Glucose 144 H Calcium 8.4 L Phosphorus 2.8 Magnesium 2.0 Total Bilirubin 0.4 AST 16 ALT 18 Alkaline Phosphatase 50 C-Reactive Protein 13.38 H Total Protein 6.3 Albumin 2.9 L Globulin 3.4 Albumin/Globulin Ratio 0.9 Procalcitonin 0.07 PG Care Time/CCT Total # of Minutes Spent Total Time Spent with Patient: Total time spent is greater than 50% in coordination of care (as documented) at patient's floor/unit and/or counseling patient: Coding Level of Care Code 81270 SUB INP/OBS CARE MIN Diagnoses Postobstructive pneumonia J18.9 Lung mass R91.8 Primary hypertension I10 Hypertension type: primary hypertension (3) Hypertension Hypertension type: primary hypertension Qualified Code(s): I10 - Essential (primary) hypertension
[2025-06-07 07:31] LABS: Creatinine Clr Calc Pharmacy 62.9 ml/min
--- NOTE | 2025-06-07 11:20 | Hospitalist Progress Note ---
Date of Service June 07, 2025 Assessment & Plan (1) Postobstructive pneumonia: (2) Lung mass: (3) Hypertension: Plan 84-year-old man with a right lower lobe lung mass which has been under workup since this summer who was admitted with postobstructive pneumonia. Initially thought to be probably infectious and took 3 weeks of antibiotics but saw no improvement. PET/CT a month ago with increase in hypermetabolic activity of the right lower lobe mass there was also a left ischial bony lesion and a pretracheal lymph node with increased uptake. he was scheduled for bronc and IR biopsy of the left ischial lesion this week. 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 CT showed evidence of a cavitary lesion. Of note, patient had bronchoscopy and EBUS in February 2025. Biopsy showed some rare atypical cells but no definitive carcinoma. BAL was positive for Corynebacterium for which the patient completed a course of antibiotics for 4 weeks. -PET scan done in April 22, 2025 shows significant uptake in the right lower cavitary lesion. -PET scan also picked up some lesion in the ischial area for which biopsy has been done, pathology pending -[employer] on board, he is now s/p CT-guided lung biopsy, pathology pending -Continue IV Zosyn For now, slight interval increase in EBC, continue to monitor -Transition to PO antibiotics upon discharge to rehab, CRP and white count finally downtrending, clinically stable - Downgrade to MedSurg, continuous pulse ox overnight. Encourage ambulation, therapy - Has yet to meet his fluid and nutritional goals. At this point that is the primary barrier to progressing through cares consult to GI for PEG placement -Plan to rediscuss with family when they are available. Likely consult for PEG placement #Complex care needs. #Goals of care discussion - Uncertain clinical course until biopsy results return. Struggling with basic nutrition, appetite. -Given his uncertain projected clinical course poorly defined endpoints and the resulting stress family open to discussing with palliative care. Will place a consult -Family Care Conference , see palliative notes, very interested in pursuing whatever supportive medicines/cares that will lead to improved nutrition/reserve and ultimately with the goal of maximize chances to return home irrespective of oncology recs/decision - See Palliative notes and line above from discussion 06/05 #Hyponatremia - mild, improving PO intake, continue to monitor - AM labs tomorrow #Leukocytosis - mild upward trend, see abx as above, trend CRP as well, clinically improving, generally stable - trend CRP and procal x 48h as well, downtrending last 24h - No clinical decompensation, stable CRP and Leuks, monitor #Severe Protein calorie malnutrition - See RD consult, supple.ment, remeron per psych, discussed megace, add probiotic - tolerating increased remeron at 15mg, overall seems to be having positive impact, to early to tell overall - Scheduled zofran and remeron, ongoing steady improvement but plateau overnight, consider PEG early in the week #Upper extremity shakes/tremors- seems to have been related to infection and has resolved, seems to occur after longer periods without any caloric intake. - no recurrence #Hypertension- Continue atenolol and amlodipine with hold parameters #Hyperlipidemia- Continue atorvastatin #Back Pain Patient complaining of back pain on admit -stable at this time . #Anxiety/Panic #Depression: Patient has been in a very low mood, feeling depressed Refusing to participate in physical therapy Per psychiatry,Would start mirtazapine 7.5mg HS and can titrate to 15mg HS if needed -Recommend avoiding benzodiazepines unless necessary and then could consider use of lorazepam 0.5mg BID po prn for panic attack - Add hydroxozine 25mg BID PRN for Anxiety, consider haldol if needed start DVT prophylaxis with enoxaparin Disposition: Will likely benefit from rehab, PT/OT on board, However patient refusing to participate in therapy Admission and Anticipated Discharge Date Admission Date: May 26, 2025 Subjective No complaints of nausea this morning. Appetite and intake is still moderately decreased. He moved into a new room this morning. He is having a down morning and early on. More michael with nursing staff. Limited interest in any oral intake at this point. Family not present at the bedside during my evaluation this morning. No other events or concerns per nursing. Physical Exam Physical Exam: The patient is awake, alert and oriented 3, well developed and well nourished, normocephalic and atraumatic, lying in bed and in no acute distress. HEENT--PERRL, EOMI, mucous membranes and oropharynx very dry Neck--supple. No JVD. No bruits. Thyroid normal, trachea midline, no adenopathy. Heart--normal S1 and S2. No murmurs, rubs or gallops. Lungs--Reduced and on auscultation Abdomen--normal bowel sounds and soft. Extremities--no cyanosis or clubbing. No edema. Dermatologic--normal skin turgor, normal color, no abnormal lymph nodes, no rash. Neurologic--cranial nerves II through XII grossly intact. Rheumatologic--normal range of motion. Psychiatric--normal affect. Results & Data Results & Data Vital Signs (Past 12 Hours) Vital Signs Temp Pulse Resp BP Pulse Ox O2 Del Method O2 Flow Rate 06/07/25 07:58 36.7 C 72 18 121/62 96 Nasal Cannula 2 Laboratory Results 06/07/25 06:32 Creatinine 0.83 Est Cr Clr Drug Dosing 62.9 eGFR 86.30 PG Care Time/CCT Total # of Minutes Spent Total Time Spent with Patient: Total time spent is greater than 50% in coordination of care (as documented) at patient's floor/unit and/or counseling patient: Coding Level of Care Code 96152 SUB INP/OBS CARE 2/35MIN Diagnoses Postobstructive pneumonia J18.9 Lung mass R91.8 Primary hypertension I10 Hypertension type: primary hypertension (3) Hypertension Hypertension type: primary hypertension Qualified Code(s): I10 - Essential (primary) hypertension
[2025-06-08 12:24] LABS: Hematocrit (blood only) 27.2 % (42.0-52.0); Hemoglobin 9.2 g/dL (14.0-18.0); Immature Granulocytes # (auto) 0.13 K/uL (0.01-0.20); Immature Granulocytes % (auto) 0.9 %; Mean Corpuscular Hemoglobin 30.3 pg (25.0-34.0); Mean Corpuscular Volume 89.5 fL (80.0-100.0); Platelet Count 722 K/uL (130-400); RDW Standard Deviation 41.5 fL (36.4-46.3); Red Blood Count 3.04 M/uL (4.70-6.10); White Blood Count 15.22 K/ul (4.8-10.8)
[2025-06-08 12:43] LABS: Alanine Aminotransferase 17.0 U/L (7-52); Albumin Globulin Ratio 0.7 (0.9-2); Albumin Level 2.8 gm/dl (3.4-5.0); Alkaline Phosphatase 52.0 U/L (34-104); Anion Gap 7.0 (3-11); Bilirubin,Total 0.4 mg/dl (0.2-1.0); Blood Urea Nitrogen 14.0 mg/dl (6-23); Calcium 8.4 mg/dl (8.6-10.3); Carbon Dioxide 25.0 mmol/L (21-32); Chloride 98.0 mmol/L (98-107); Creatinine Clr Calc Pharmacy 56.1 ml/min; Globulin 3.8 gm/dl (2.5-4.0); Glucose 114.0 mg/dl (70-99(Fasting)); Magnesium 2.1 mg/dl (1.7-2.4); Potassium 4.9 mmol/L (3.5-5.1); Sodium 130.0 mmol/L (136-145); Total Protein 6.6 gm/dl (6.0-8.3)
--- NOTE | 2025-06-08 16:16 | Oncology Consultation ---
Date of Consultation June 08, 2025 Assessment & Plan (1) Non-small cell cancer of right lung: I had a very lengthy discussion with the patient and his family members. I discussed all the treatment options which include chemotherapy, radiation, best supportive care. Given his multiple comorbidities it may be hard for him to undergo surgical treatment especially since the fact that this cancer may have already metastasized to the bone given the findings on the PET CT scan. Chemotherapy and radiation still remain an option however he will need a drastic improvement in his performance status before we could institute such therapy. I also discussed the pros and cons of feeding tube, in the absence of a malignant obstruction do not see year dramatic improvement in the clinical outcomes with a feeding tube placement. All in all I would want an outpatient follow-up to determine whether we can start this patient on palliative systemic chemotherapy. Plan Thank you for this interesting oncological consult. A total of 60 minutes was spent in counseling, coordination of care, review of prior records. 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 Significantly increased uptake at the right lower lobe lung mass consistent with malignancy. 2. Minimal uptake at a minimally enlarged precarinal lymph node, nonspecific, could be reactive. 3. Small hypermetabolic osseous lesion at the left ischium suspicious for single osseous metastatic lesion. 4. No other abnormal uptake seen. bronchoscopy; 03/04/2025: INDICATION: Rule out malignancy PROCEDURE: After obtaining an informed consent, the patient was brought to the OR. The patient had appropriate oxygen, blood pressure, heart rate, and respiratory rate monitoring applied and monitored continuously throughout the procedure. Sedation was managed by anesthesia, please refer to their notes Flexible bronchoscope was introduced through ETT. Blood was already appreciated around the ETT as well as at the alexander going down to the right lower lobe. 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 This could represent a pleomorphic carcinoma though that diagnosis requires a resection specimen. A lung Neotype panel has been ordered and will be reported separately. This case was reviewed intra-departmentally with agreement to the above diagnosis. bone biopsy;05/26/2025: FINAL DIAGNOSIS Bone, left ischial, core biopsy: - Small population of monoclonal CD5+ B-cells (7% total by flow cytometry) - Morphologically unremarkable bone marrow elements - Negative for metastatic carcinoma Allergies Allergy/AdvReac Type Severity Reaction Status Date / Time amoxicillin [From Augmentin] AdvReac Mild severe Verified 04/24/25 13:02 nausea clavulanic acid AdvReac Mild severe Verified 04/24/25 13:02 [From Augmentin] nausea Home Medications Medication Instructions Recorded Confirmed Type lactobacillus combination no.4 15 15,000 mmu cells PO DAILY 02/17/25 05/25/25 History billion cell capsule omeprazole 20 mg capsule,delayed 40 mg PO DAILY 02/17/25 05/25/25 History release amlodipine 10 mg tablet 10 mg PO QAM #90 tabs 03/16/25 05/25/25 Rx atorvastatin 10 mg tablet 10 mg PO HS #90 tabs 03/16/25 05/25/25 Rx atenolol 25 mg tablet 25 mg PO QAM #30 tabs 05/15/25 05/25/25 Rx Patient History Medical History History of bradycardia (02/18/25) Hypertension GERD (gastroesophageal reflux disease) Bleeding disorder Lung mass Enlarged prostate with lower urinary tract symptoms (LUTS) JYALAN (generalized anxiety disorder) Dyslipidemia Chronic osteoarthritis Syncope Witnessed seizure-like activity (02/17/25) Melanoma in situ Tubular adenoma of colon Transitional cell carcinoma of bladder Family history of melanoma Decreased hearing Surgical History Hx of cataract extraction (2022) Hx of wisdom tooth extraction Hx of melanoma excision H/O colonoscopy History of hernia surgery History of bladder surgery (~1997) Family History Unknown Skin cancer Heart disease Diabetes Sister Breast cancer Lung cancer Denies family history of Ovarian cancer Prostate cancer Myocardial infarction Colorectal cancer Stroke Social History Smoking Status: Former smoker Tobacco Type: Cigarettes Age Started Using Tobacco: 16; Age Quit Using Tobacco: 81; packs per day: 1; Cigarettes Per Day: quit 30 years ago x 25 years- started smoking again x 1 year- stop 3 years; Second Hand Exposure: No; Do You Dip or Chew Tobacco: No; Hx Alcohol Use: No Hx Substance Use: No Preferred Language: Latvian Communication Ability: Effective Visual Impairment: Limited Hearing Ability: Hard of Hearing Table Tender Required: No Beliefs That Will Affect Care: None marital status: Current Living Situation: Spouse current occupational status: retired 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 How many Children do You have: 4 Feels Safe at Home: Yes Childhood Exposure to Second-Hand Smoke: Yes (thinks father did ) Diet: regular caffeine: Yes (coffee) during the past year weight has: remained stable Dental Care, Regularly: No Physical Activity Frequency: Does not Exercise Seatbelt Use: always Sunscreen Use: No Assistive Devices: None Review of Systems Review of Systems: All systems reviewed & are unremarkable except as noted in HPI & below Constitutional: as per Subjective / HPI Eyes: as per Subjective / HPI Ear, Nose, Mouth, Throat: as per Subjective / HPI Respiratory: as per Subjective / HPI Cardiovascular: as per Subjective / HPI Gastrointestinal: as per Subjective / HPI Genitourinary: + as per Subjective / HPI Musculoskeletal: as per Subjective / HPI Integumentary: as per Subjective / HPI Neurologic: as per Subjective / HPI Psychiatric: as per Subjective / HPI Endocrine: as per Subjective / HPI Hematologic / Lymphatic: as per Subjective / HPI Allergy / Immunological: as per Subjective / HPI Physical Exam Constitutional: WD/WN, vitals as above Eyes: PERRL, conjunctivae normal, anicteric sclerae ENMT: external ear and nose normal, oropharynx normal Neck: trachea midline, no thyromegaly Respiratory: normal respiratory effort, lungs clear to auscultation Cardiovascular: RRR, no murmur, no edema Gastrointestinal (Abdomen): normal bowel sounds, soft, nontender, no hepatosplenomegaly Musculoskeletal: no cyanosis or clubbing, extremities motor strength 5/5 Skin: no rashes, warm and dry Neurologic: patellar DTR's 2+ bilat, sensation intact Psychiatric: A+Ox3, euthymic affect Results & Data Vital Signs (Past 12 Hours) Vital Signs Temp Pulse Resp BP Pulse Ox O2 Del Method 06/08/25 13:08 93 Room Air 06/08/25 08:06 36.3 C L 82 15 139/61 96 Room Air
--- NOTE | 2025-06-08 17:33 | Hospitalist Progress Note ---
Date of Service June 08, 2025 Assessment & Plan (1) Postobstructive pneumonia: (2) Non-small cell cancer of right lung: (3) Weight loss: (4) Anemia: Plan This patient is an 84-year-old man with a right lower lobe lung mass which has been under workup since this summer who was admitted with postobstructive pneumonia. Initially thought to be probably infectious and took 3 weeks of antibiotics but saw no improvement. PET/CT a month ago with increase in hypermetabolic activity of the right lower lobe mass there was also a left ischial bony lesion and a pretracheal lymph node with increased uptake. He was scheduled for bronc and IR biopsy of the left ischial lesion this week, but presented to the hospital and was admitted for postobstructive pneumonia. # Non-small cell lung cancer/postobstructive pneumonia: Presented with hemoptysis and failed treatment with [address] with cavitary lesion and had bronchoscopy with EBUS in 02/2025 with negative biopsy at that time. 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 Ischial bone mass biopsy inconclusive for cancer. He has completed a 7-day course of IV Zosyn for pneumonia and has improved from that standpoint. He has met with oncology as well as palliative medicine and has decided to focus on comfort and quality of life without pursuing chemotherapy for his cancer. He has lost 60 pounds from poor appetite he blames on previous antibiotic use. Appetite now improving with mirtazapine - No cancer related pain at this time - Continue mirtazapine 15 mg p.o. at bedtime - Plan to go to rehab for strengthening to return home, but eventually will need to enroll in hospice care to help him focus on quality of life and staying at home which is his goal #Hyponatremia-sodium low at 130 and is likely due to possible SIADH from lung cancer versus some hypovolemia from poor p.o. intake - Follow BMP in the a.m. #Leukocytosis/thrombocytosis/anemia-hemoglobin low but stable at 9.2, normocytic anemia. Leukocytosis and thrombocytosis are likely reactive to cancer and to anemia. Some of the leukocytosis may be due to infection as well which was treated with antibiotics. - Check iron studies, B12, folate, TSH in the a.m.-can replace vitamin and/or iron deficiencies if needed - Follow CBC #Severe Protein calorie malnutrition - See RD consult, supplement, probiotics, and started remeron per psych - No need for PEG tube placement and family is in agreement with this #Hypertension-PEs are controlled -Continue atenolol and amlodipine #Hyperlipidemia- -Continue atorvastatin for now but can likely be stopped in the near future once he pursues comfort measures only #Anxiety/Panic/depression:Patient has been in a very low mood, feeling depressed. Appreciate psychiatry consultation. He is now improving with starting Remeron -Continue mirtazapine 15 mg p.o. at bedtime -Recommend avoiding benzodiazepines unless necessary and then could consider use of lorazepam 0.5mg BID po prn for panic attack - Added hydroxozine 25mg BID PRN for Anxiety, consider haldol if needed DVT prophylaxis--enoxaparin Disposition: Patient now desires to go to [facility] for rehab for strengthening prior to returning home at which point he will focus on quality of life and comfort without pursuing treatment for cancer. Hopeful for discharge to rehab in the next 1-2 days. He is medically stable for discharge. Discussed care with case management coordinator Admission and Anticipated Discharge Date Admission Date: May 26, 2025 Subjective Patient reports slightly improved appetite and feels little more energetic today. He met with oncology with his family and has decided that he does not want to pursue chemotherapy. He would rather focus on quality of life for the time that he has left and go to rehab to get stronger prior to returning home. He denies pain. He is moving his bowels. He is coughing up some white sputum but feels better overall than when he came in. I discussed his care with palliative medicine Physical Exam Constitutional: WD/WN, vitals as above Respiratory: normal respiratory effort Auscultation: + diminished lung sounds (Right greater than left lower lung gunderson) and + rhonchi (Right lower lung field) Cardiovascular: RRR, no murmur, no edema Gastrointestinal (Abdomen): normal bowel sounds, soft, nontender, no hepatosplenomegaly Psychiatric: A+Ox3, euthymic affect Results & Data Results & Data Vital Signs (Past 12 Hours) Vital Signs Temp Pulse Resp BP Pulse Ox O2 Del Method 06/08/25 16:20 37.0 C 71 18 123/69 93 Room Air 06/08/25 13:08 93 Room Air 06/08/25 08:30 Room Air 06/08/25 08:06 36.3 C L 82 15 139/61 96 Room Air Laboratory Results CBC, BMP, phosphorus, magnesium, LFTs reviewed PG Care Time/CCT Total # of Minutes Spent Total Time Spent with Patient: Total time spent is greater than 50% in coordination of care (as documented) at patient's floor/unit and/or counseling patient: Coding Level of Care Code 12018 SUB INP/OBS CARE 3/50MIN Diagnoses Postobstructive pneumonia J18.9 Non-small cell cancer of right lung C34.91 Weight loss R63.4 Anemia D64.9
--- NOTE | 2025-06-08 18:43 | Palliative Care Progress Note ---
Date of Service June 08, 2025 Assessment & Plan (1) Cancer related pain: Plan: Pt states pain well managed at this time. (2) Counseling regarding goals of care: Plan: See family meeting note from 06/05/25. GOC will be readdressed after pt has met with oncology team to discuss pathology results and treatment options. I have reached out to DR Horne, who will met with family after 4pm today. (3) Palliative care by specialist: Plan: Palliative care will continue to follow for ongoing ACP discussions and patient/family support. (4) Counseling regarding advanced directives and goals of care: Plan: Pt verbalized that HE trusts his Maira to serve as as primary proxy and his adult children jointly as secondary proxy for medical decisions in the event he lacks decisional capacity. Pt DOES NOT currently require a proxy for medical decisions. Plan as above Admission and Anticipated Discharge Date Admission Date: May 26, 2025 Subjective Assessed pt at bedside this morning, he is more awake and talkative today. Denies any discomfort aside from dry mouth. He shared that he feels his appetite has improved slightly. EARLINE SPARKS. spouse at bedside. They are hopeful for oncology consult today to discuss treatment options. Review of Systems Review of Systems: All systems reviewed & are unremarkable except as noted in Subjective Physical Exam Constitutional: well developed, + ill appearing and + thin; no acute distress Eyes: PERRL, conjunctivae normal, anicteric sclerae Respiratory: normal respiratory effort, lungs clear to auscultation Gastrointestinal (Abdomen): normal bowel sounds, soft, nontender, no hep atosplenomegaly Psychiatric: A+Ox3, euthymic affect Results & Data Vital Signs (Past 12 Hours) Vital Signs Temp Pulse Resp BP Pulse Ox O2 Del Method 06/08/25 16:20 37.0 C 71 18 123/69 93 Room Air 06/08/25 13:08 93 Room Air 06/08/25 08:30 Room Air 06/08/25 08:06 36.3 C L 82 15 139/61 96 Room Air Laboratory Results Abnormal lab results 06/08/25 Range/Units 12:05 WBC 15.22 H (4.8-10.8) K/ul RBC 3.04 L (4.70-6.10) M/uL Hgb 9.2 L (14.0-18.0) g/dL Hct 27.2 L (42.0-52.0) % Plt Count 722 H (130-400) K/uL MPV 8.4 L (9.4-12.4) fL Neut # (Auto) 11.79 H (1.40-6.50) K/uL [place] # (Auto) 1.79 H (0.11-0.59) K/uL Sodium 130 L (136-145) mmol/L Glucose 114 H (70-99(Fasting)) mg/dl Calcium 8.4 L (8.6-10.3) mg/dl Albumin 2.8 L (3.4-5.0) gm/dl Albumin/Globulin Ratio 0.7 L (0.9-2) Diagnostic Findings Chest CT 05/26/25 00:12 EXAM: CT chest diagnostic wo con CLINICAL HISTORY: post obstructive RLL pneumonia TECHNIQUE: Contiguous axial images were obtained from the neck base through the upper abdomen without contrast. In addition, sagittal and coronal reconstructions were performed to potentially increase the sensitivity for the detection of disease. CT scan was performed according to ALARA (as low as reasonable achievable). COMPARISON: 02/17/2025 FINDINGS: Interval increase in soft tissue density with internal air foci and surrounding ground-glass opacities in right lower lobe, measures approximately 80 x 65 mm in current study versus 50 x 60 mm in prior study Interval unchanged paraseptal and centrilobular emphysematous changes in bilateral lung gunderson. Rest of the lungs are clear. The central airways are patent. There are no pleural effusions. No pneumothorax is seen. Evaluation of the mediastinum and galen is limited due to the lack of intravenous contrast. Interval increase in enlarged mediastinal lymph nodes, largest measuring approximately 11 mm in current study No axillary adenopathy is identified. The thyroid is unremarkable. The heart, aorta, and pulmonary arteries are of normal size and configuration. There are coronary artery and aortic atherosclerotic calcifications. No pericardial effusion is identified. Imaged portions of the upper abdomen are unremarkable. No aggressive appearing osseous lesions are identified. Degenerative changes in visualised spine IMPRESSION: Mild interval increase in size of soft tissue density with internal air foci and surrounding ground-glass opacities in right lower lobe. Interval increase in mediastinal lymphadenopathy. Interval unchanged paraseptal and centrilobular emphysematous changes in bilateral lung gunderson. Electronically signed by Tenzin Walton 05-26-2025 01:[address] 05/26/25 08:44 CT guided left ischial bone lesion core biopsy INDICATION: FDG avid left ischial bone lesion; lung mass PROCEDURE: Procedure and risks were explained. Informed consent was obtained. Final timeout was completed. The patient was placed prone on the CT exam table. The left gluteal region was prepped and draped in sterile fashion. 1% lidocaine was utilized for skin anesthesia. Utilizing CT guidance, an 11-gauge bone biopsy needle was advanced into the left ischio bone lesion. 1 core was obtained and given to the pathologist for review. The needle was removed and Band-Aid applied. The patient tolerated the procedure well. IMPRESSION: Left ischial bone lesion core biopsy as above. Performed, dictated, and signed by Tom Lewis PA-C; to be co-signed by Dr. Neri Vizcarra. Electronically signed by: Neri Vizcarra M.D. 05/26/2025 2:[address] 05/29/25 08:30 CT-guided right lung mass core biopsy INDICATION: Right lower lobe lung mass PROCEDURE: Procedure and risks were explained. Informed consent was obtained. Final timeout was completed. The patient was placed in a left decubitus position on the CT exam table. The right lateral thorax was prepped and draped in sterile fashion. 1% lidocaine was utilized for skin anesthesia. The patient received 25 mcg fentanyl IV. Utilizing CT guidance, a 19-gauge coaxial needle was advanced since the right lower lobe lung mass. A 20-gauge core biopsy needle was then advanced, and 3 cores were obtained and given to the pathologist for review. The coaxial needle was removed and Band-Aid applied. The patient tolerated the procedure well. Post CT imaging demonstrated no immediate complication. Vital signs will be monitored on the floor. IMPRESSION: Right lung mass core biopsy as above. Performed, dictated, and signed by Tom Lewis PA-C; to be co-signed by Dr. Neri Vizcarra. Electronically signed by: Neri Vizcarra M.D. 05/29/2025 2:06 PM Chest X-Ray 05/31/25 09:41 Exam: AP Portable Chest Exam reason: Follow-up Comparison: 05/30/2025 Technique: A single AP portable view of the chest was obtained Findings: The lungs are well-expanded. There is redemonstration of a small loculated appearing right-sided pleural effusion. There is blunting of the left costophrenic angle. There is ill-defined right lower lung zone consolidation. The cardiac and mediastinal silhouettes are within normal limits. There is no pneumothorax and no acute bony abnormalities are seen. Impression: 1. No significant change in appearance of the chest. There is redemonstration of a small right-sided pleural effusion with likely associated atelectasis or pneumonia in the right lower lobe. 2. There is a trace left-sided pleural effusion. Electronically signed by Camron Gastelum 05-31-2025 10:40 AM Medications Administered Current Inpatient Medications Acetaminophen (Acetaminophen 325 Mg Tab) 650 mg PO Q4H PRN PRN Reason: Pain or Fever Stop: 06/25/25 02:06 Last Admin: 06/08/25 12:02 Dose: 650 mg Albuterol (Albut/Ipratrop 3mg/0.5mg Neb 3 Ml Vial) 3 ml NEB Q2H PRN; Protocol PRN Reason: dyspnea Stop: 06/25/25 00:18 Amlodipine Besylate (Amlodipine Besylate 5 Mg Tab) 10 mg PO QAM MELISA Stop: 06/25/25 08:59 Last Admin: 06/08/25 08:54 Dose: 10 mg Atenolol (Atenolol 25 Mg Tablet) 25 mg PO QAM MELISA Stop: 06/25/25 08:59 Last Admin: 06/08/25 08:54 Dose: 25 mg Atorvastatin Calcium (Atorvastatin 10 Mg Tab) 10 mg PO HS MELISA Stop: 06/25/25 20:59 Last Admin: 06/07/25 20:15 Dose: 10 mg Enoxaparin Sodium (Enoxaparin Inj 40 Mg/0.4 Ml Syr) 40 mg SQ HS MELISA Stop: 06/25/25 20:59 Last Admin: 06/07/25 20:20 Dose: 40 mg Guaifenesin (Guaifenesin 600 Mg Tabcr) 600 mg PO Q12 MELISA Stop: 07/02/25 20:59 Last Admin: 06/08/25 08:54 Dose: 600 mg Hydroxyzine HCl (Hydroxyzine Hcl 25 Mg Tab) 25 mg PO BID PRN PRN Reason: Anxiety Stop: 07/03/25 12:04 Last Admin: 06/07/25 20:27 Dose: 25 mg Prochlorperazine 10 mg/ (Syringe) 10 mls @ 5 mls/min IV Q6H PRN PRN Reason: Nausea And Vomiting Stop: 07/05/25 13:15 Lactobacillus Acidophilus (Advanced Probiotic 625 Mg Capsule) 1,250 mg PO DAILY MELISA Stop: 06/25/25 08:59 Last Admin: 06/08/25 08:54 Dose: 1,250 mg Mirtazapine (Mirtazapine Tab 15 Mg Tab) 15 mg PO HS MELISA Stop: 07/03/25 20:59 Last Admin: 06/07/25 20:15 Dose: 15 mg Ondansetron HCl (Ondansetron Inj 2 Mg/Ml 2 Ml Vial) 4 mg IV Q6H MELISA Stop: 07/05/25 13:59 Last Admin: 06/08/25 14:15 Dose: Not Given Pantoprazole Sodium (Pantoprazole 40 Mg Tab) 40 mg PO DAILY MELISA Stop: 06/25/25 08:59 Last Admin: 06/08/25 08:53 Dose: 40 mg PG Care Time/CCT Total # of Minutes Spent Total Time Spent with Patient: Total time spent is greater than 50% in coordination of care (as documented) at patient's floor/unit and/or counseling patient: Coding [place] [address] SUB INP/OBS CARE 2/35MIN Patient Type Established History Expanded Problem Focused Exam Expanded Problem Focused Medical Decision Making Moderate Complexity Diagnoses Cancer related pain G89.3 Counseling regarding goals of care Z71.89 Palliative care by specialist Z51.5 Counseling regarding advanced directives and goals of care Z71.89
[2025-06-09 07:11] LABS: Hematocrit (blood only) 26.4 % (42.0-52.0); Hemoglobin 9.0 g/dL (14.0-18.0); Immature Granulocytes # (auto) 0.09 K/uL (0.01-0.20); Immature Granulocytes % (auto) 0.7 %; Mean Corpuscular Hemoglobin 30.3 pg (25.0-34.0); Mean Corpuscular Volume 88.9 fL (80.0-100.0); Platelet Count 700 K/uL (130-400); RDW Standard Deviation 40.1 fL (36.4-46.3); Red Blood Count 2.97 M/uL (4.70-6.10); White Blood Count 13.75 K/ul (4.8-10.8)
[2025-06-09 07:49] LABS: Anion Gap 9.0 (3-11); Blood Urea Nitrogen 17.0 mg/dl (6-23); Calcium 8.3 mg/dl (8.6-10.3); Carbon Dioxide 23.0 mmol/L (21-32); Chloride 98.0 mmol/L (98-107); Creatinine Clr Calc Pharmacy 62.1 ml/min; Glucose 108.0 mg/dl (70-99(Fasting)); Iron 22.0 mcg/dl (35-175); Magnesium 2.0 mg/dl (1.7-2.4); Potassium 4.2 mmol/L (3.5-5.1); Sodium 130.0 mmol/L (136-145); Total Iron Binding Cap Calc 224.0 mcg/dl (250-450); Transferrin 160.0 mg/dl (200-360); Transferrin (FE) Percent Satur 10.0 % (20-50)
[2025-06-09 07:55] LABS: Folate (Folic Acid),Ser orPlas 16.8 ng/ml (>5.38)
[2025-06-09 07:56] LABS: Vitamin B12 556.0 pg/ml (180-914)
[2025-06-09 08:03] LABS: Thyroid Stimulating Hormone 0.854 uIu/ml (0.300-4.500)
[2025-06-09 08:09] LABS: Ferritin 231.0 ng/ml (8-388)
--- NOTE | 2025-06-09 09:43 | Palliative Care Progress Note ---
Date of Service June 09, 2025 Assessment & Plan (1) Cancer related pain: Plan: Pt states pain well managed at this time. (2) Counseling regarding goals of care: Plan: Met with pt at bedside today, no visitors present. Pt reinforced desire to go to rehab for optimizing strength and independence and then discharge to home with hospice. He shared that he does not want the staff at rehab "controlling my day". We discussed need for him to participate in therapy to afford him the best chance of improving his strength, he responded "as long as they don't piss me off and tell me I have to do things i do not want to". He shared agreement with plan, but does seem resistant to participation in his own care. Nursing team reports patient is resistant to daily care and refusing medications. Reinforced with patient that without active participation, he will be discharged from rehab. Patient reinforced his desire for discharge to rehab with eventual plan to return home with hospice. (3) Palliative care by specialist: Plan: Palliative care will continue to follow for ongoing ACP discussions and family support. (4) Counseling regarding advanced directives and goals of care: Plan: Pt verbalized that HE trusts his Maira to serve as as primary proxy and his adult children jointly as secondary proxy for medical decisions in the event he lacks decisional capacity. Pt DOES NOT currently require a proxy for medical decisions. Plan as above Admission and Anticipated Discharge Date Admission Date: May 26, 2025 Subjective Assessed pt at bedside, no visitors present. Pt denied any pain/discomfort, but shared that he is frustrated with being asked to take "horse pills" and asked that his medication list be minimized "to only what I need". Discussed this with primary team. Review of Systems Review of Systems: All systems reviewed & are unremarkable except as noted in Subjective Physical Exam Constitutional: well developed, + ill appearing and + thin; no acute distress Eyes: PERRL, conjunctivae normal, anicteric sclerae Respiratory: normal respiratory effort, lungs clear to auscultation Gastrointestinal (Abdomen): normal bowel sounds, soft, nontender, no hepatosplenomegaly Psychiatric: A+Ox3, euthymic affect Results & Data Vital Signs (Past 12 Hours) Vital Signs Temp Pulse Resp BP BP Pulse Ox O2 Del Method 06/09/25 09:12 75 117/65 06/09/25 08:47 Nasal Cannula 06/09/25 07:51 Room Air 06/09/25 07:25 36.9 C 81 18 124/69 93 Room Air O2 Flow Rate 06/09/25 09:12 06/09/25 08:47 1 06/09/25 07:51 06/09/25 07:25 Laboratory Results Abnormal lab results 06/09/25 Range/Units 06:38 WBC 13.75 H (4.8-10.8) K/ul RBC 2.97 L (4.70-6.10) M/uL Hgb 9.0 L (14.0-18.0) g/dL Hct 26.4 L (42.0-52.0) % Plt Count 700 H (130-400) K/uL MPV 8.5 L (9.4-12.4) fL Neut # (Auto) 9.98 H (1.40-6.50) K/uL Liberty # (Auto) 1.77 H (0.11-0.59) K/uL Sodium 130 L (136-145) mmol/L BUN/Creatinine Ratio 20.2 H (10-20) Glucose 108 H (70-99(Fasting)) mg/dl Calcium 8.3 L (8.6-10.3) mg/dl Iron 22 L (35-175) mcg/dl TIBC 224 L (250-450) mcg/dl Transferrin 160 L (200-360) mg/dl Transferrin % Sat 10 L (20-50) % Diagnostic Findings Chest CT 05/26/25 00:12 EXAM: CT chest diagnostic wo con CLINICAL HISTORY: post obstructive RLL pneumonia TECHNIQUE: Contiguous axial images were obtained from the neck base through the upper abdomen without contrast. In addition, sagittal and coronal reconstructions were performed to potentially increase the sensitivity for the detection of disease. CT scan was performed according to ALARA (as low as reasonable achievable). COMPARISON: 02/17/2025 FINDINGS: Interval increase in soft tissue density with internal air foci and surrounding ground-glass opacities in right lower lobe, measures approximately 80 x 65 mm in current study versus 50 x 60 mm in prior study Interval unchanged paraseptal and centrilobular emphysematous changes in bilateral lung gunderson. Rest of the lungs are clear. The central airways are patent. There are no pleural effusions. No pneumothorax is seen. Evaluation of the mediastinum and galen is limited due to the lack of intravenous contrast. Interval increase in enlarged mediastinal lymph nodes, largest measuring approximately 11 mm in current study No axillary adenopathy is identified. The thyroid is unremarkable. The heart, aorta, and pulmonary arteries are of normal size and configuration. There are coronary artery and aortic atherosclerotic calcifications. No pericardial effusion is identified. Imaged portions of the upper abdomen are unremarkable. No aggressive appearing osseous lesions are identified. Degenerative changes in visualised spine IMPRESSION: Mild interval increase in size of soft tissue density with internal air foci and surrounding ground-glass opacities in right lower lobe. Interval increase in mediastinal lymphadenopathy. Interval unchanged paraseptal and centrilobular emphysematous changes in bilateral lung gunderson. Electronically signed by Tenzin Walton 05-26-2025 01:[address] 05/26/25 08:44 CT guided left ischial bone lesion core biopsy INDICATION: FDG avid left ischial bone lesion; lung mass PROCEDURE: Procedure and risks were explained. Informed consent was obtained. Final timeout was completed. The patient was placed prone on the CT exam table. The left gluteal region was prepped and draped in sterile fashion. 1% lidocaine was utilized for skin anesthesia. Utilizing CT guidance, an 11-gauge bone biopsy needle was advanced into the left ischio bone lesion. 1 core was obtained and given to the pathologist for review. The needle was removed and Band-Aid applied. The patient tolerated the procedure well. IMPRESSION: Left ischial bone lesion core biopsy as above. Performed, dictated, and signed by Tom Lewis PA-C; to be co-signed by Dr. Neri Vizcarra. Electronically signed by: Neri Vizcarra M.D. 05/26/2025 2:[address] 05/29/25 08:30 CT-guided right lung mass core biopsy INDICATION: Right lower lobe lung mass PROCEDURE: Procedure and risks were explained. Informed consent was obtained. Final timeout was completed. The patient was placed in a left decubitus position on the CT exam table. The right lateral thorax was prepped and draped in sterile fashion. 1% lidocaine was utilized for skin anesthesia. The patient received 25 mcg fentanyl IV. Utilizing CT guidance, a 19-gauge coaxial needle was advanced since the right lower lobe lung mass. A 20-gauge core biopsy needle was then advanced, and 3 cores were obtained and given to the pathologist for review. The coaxial needle was removed and Band-Aid applied. The patient tolerated the procedure well. Post CT imaging demonstrated no immediate complication. Vital signs will be monitored on the floor. IMPRESSION: Right lung mass core biopsy as above. Performed, dictated, and signed by Tom Lewis PA-C; to be co-signed by Dr. Neri Vizcarra. Electronically signed by: Neri Vizcarra M.D. 05/29/2025 2:06 PM Chest X-Ray 05/31/25 09:41 Exam: AP Portable Chest Exam reason: Follow-up Comparison: 05/30/2025 Technique: A single AP portable view of the chest was obtained Findings: The lungs are well-expanded. There is redemonstration of a small loculated appearing right-sided pleural effusion. There is blunting of the left costophrenic angle. There is ill-defined right lower lung zone consolidation. The cardiac and mediastinal silhouettes are within normal limits. There is no pneumothorax and no acute bony abnormalities are seen. Impression: 1. No significant change in appearance of the chest. There is redemonstration of a small right-sided pleural effusion with likely associated atelectasis or pneumonia in the right lower lobe. 2. There is a trace left-sided pleural effusion. Electronically signed by Camron Gastelum 05-31-2025 10:40 AM Medications Administered Current Inpatient Medications Acetaminophen (Acetaminophen 325 Mg Tab) 650 mg PO Q4H PRN PRN Reason: Pain or Fever Stop: 06/25/25 02:06 Last Admin: 06/08/25 12:02 Dose: 650 mg Albuterol (Albut/Ipratrop 3mg/0.5mg Neb 3 Ml Vial) 3 ml NEB Q2H PRN; Protocol PRN Reason: dyspnea Stop: 06/25/25 00:18 Amlodipine Besylate (Amlodipine Besylate 5 Mg Tab) 10 mg PO QAM MELISA Stop: 06/25/25 08:59 Last Admin: 06/09/25 09:13 Dose: 10 mg Atenolol (Atenolol 25 Mg Tablet) 25 mg PO QAM MELISA Stop: 06/25/25 08:59 Last Admin: 06/09/25 09:14 Dose: 25 mg Enoxaparin Sodium (Enoxaparin Inj 40 Mg/0.4 Ml Syr) 40 mg SQ HS MELISA Stop: 06/25/25 20:59 Last Admin: 06/08/25 20:58 Dose: 40 mg Prochlorperazine 10 mg/ (Syringe) 10 mls @ 5 mls/min IV Q6H PRN PRN Reason: Nausea And Vomiting Stop: 07/05/25 13:15 Mirtazapine (Mirtazapine Tab 15 Mg Tab) 15 mg PO HS MELISA Stop: 07/03/25 20:59 Last Admin: 06/08/25 20:57 Dose: 15 mg Ondansetron HCl (Ondansetron Inj 2 Mg/Ml 2 Ml Vial) 4 mg IV Q6H MELISA Stop: 07/05/25 13:59 Last Admin: 06/09/25 15:03 Dose: 4 mg Pantoprazole Sodium (Pantoprazole 40 Mg Tab) 40 mg PO DAILY MELISA Stop: 06/25/25 08:59 Last Admin: 06/09/25 09:14 Dose: 40 mg PG Care Time/CCT Total # of Minutes Spent Total Time Spent with Patient: Total time spent is greater than 50% in coordination of care (as documented) at patient's floor/unit and/or counseling patient: [place] [address] SUB INP/OBS CARE 2/35MIN Patient Type Established History Expanded Problem Focused Exam Expanded Problem Focused Medical Decision Making Moderate Complexity Diagnoses Cancer related pain G89.3 Counseling regarding goals of care Z71.89 Palliative care by specialist Z51.5 Counseling regarding advanced directives and goals of care Z71.89
--- NOTE | 2025-06-09 14:26 | Hospitalist Progress Note ---
Date of Service June 09, 2025 Assessment & Plan (1) Postobstructive pneumonia: (2) Non-small cell cancer of right lung: (3) Weight loss: (4) Anemia: Plan This patient is an 84-year-old man with a right lower lobe lung mass which has been under workup since this summer who was admitted with postobstructive pneumonia. Initially thought to be possibly infectious and took 3 weeks of antibiotics but saw no improvement. PET/CT a month ago with increase in hypermetabolic activity of the right lower lobe mass and there was also a left ischial bony lesion and a pretracheal lymph node with increased uptake. He was scheduled for bronchoscopy and IR biopsy of the left ischial lesion the week of admission, but presented to the hospital and was admitted for postobstructive pneumonia. # Non-small cell lung cancer/postobstructive pneumonia: Presented with hemoptysis and failed treatment with [address] with cavitary lesion and had bronchoscopy with EBUS in 02/2025 with negative biopsy at that time. 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 Ischial bone mass biopsy inconclusive for cancer. He has completed a 7-day course of IV Zosyn for pneumonia and has improved from that standpoint. He has met with oncology as well as palliative medicine and has decided to focus on comfort and quality of life without pursuing chemotherapy for his cancer. He has lost 60 pounds from poor appetite he blames on previous antibiotic use. Appetite now improving with mirtazapine - No cancer related pain at this time - Continue mirtazapine 15 mg p.o. 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 intake. Sodium stable on repeat check - No further lab draws needed #Leukocytosis/thrombocytosis/anemia-hemoglobin low but stable at 9.0, normocytic anemia. Leukocytosis and thrombocytosis are likely reactive to cancer and to anemia. Some of the leukocytosis may be due to infection as well which was treated with antibiotics. Leukocytosis and thrombocytosis somewhat improved. Iron studies consistent with anemia of chronic disease. B12/folate/TSH all normal -No need for further lab draws - Would not replace iron orally as this may make him more nauseated #Severe Protein calorie malnutrition - See RD consult, supplement, probiotics, and started remeron per psych - No need for PEG tube placement and family is in agreement with this #Hypertension-PEs are controlled -Continue atenolol and amlodipine #Hyperlipidemia- -Continue atorvastatin for now but can likely be stopped in the near future once he pursues comfort measures only #Anxiety/Panic/depression:Patient has been in a very low mood, feeling depressed. Appreciate psychiatry consultation. He is now improving with starting Remeron -Continue mirtazapine 15 mg p.o. at bedtime -Discontinue hydroxyzine as he complains of fatigue DVT prophylaxis--enoxaparin Disposition: Patient now desires to go to [facility] for rehab for strengthening prior to returning home at which point he will focus on quality of life and comfort without pursuing treatment for cancer. [facility] has a bed for him- can take him herself on 06/10 Admission and Anticipated Discharge Date Admission Date: May 26, 2025 Subjective Patient felt nauseated and had some dry heaves after taking probiotics this morning. He would like some of his unnecessary medications to be stopped. He had told palliative medicine this morning that he did not want to go to rehab, but then tells me that he is agreeable to going to rehab. I discussed his case with the senior case manager. I also discussed his care with his on the phone. Physical Exam Constitutional: WD/WN, vitals as above Respiratory: normal respiratory effort Auscultation: + diminished lung sounds (Right greater than left lower lung gunderson) Cardiovascular: RRR, no murmur, no edema Gastrointestinal (Abdomen): normal bowel sounds, soft, nontender, no hepatosplenomegaly Psychiatric: A+Ox3, euthymic affect Results & Data Results & Data Vital Signs (Past 12 Hours) Vital Signs Temp Pulse Resp BP BP Pulse Ox O2 Del Method 06/09/25 09:12 75 117/65 06/09/25 08:47 Nasal Cannula 06/09/25 07:51 Room Air 06/09/25 07:25 36.9 C 81 18 124/69 93 Room Air O2 Flow Rate 06/09/25 09:12 06/09/25 08:47 1 06/09/25 07:51 06/09/25 07:25 Laboratory Results CBC, BMP, iron studies, B12, folate, TSH reviewed PG Care Time/CCT Total # of Minutes Spent Total Time Spent with Patient: Total time spent is greater than 50% in coordination of care (as documented) at patient's floor/unit and/or counseling patient: Coding Level of Care Code 83909 SUB INP/OBS CARE 08/02MIN Diagnoses Postobstructive pneumonia J18.9 Non-small cell cancer of right lung C34.91 Weight loss R63.4 Anemia D64.9
[2025-06-10] MEDS: busPIRone 5 MG TAB PO PRN (01:51)
[2025-06-10 07:43] VITALS: RESP 18
[2025-06-10 08:16] VITALS: BP 121/57; PULSE 77; TEMP 97.5; O2SAT 95
--- NOTE | 2025-06-10 10:30 | Discharge Summary ---
Discharge Summary Date of Service June 10, 2025 Principal Dx & Hospital Course #1 = Principal Diagnosis (1) Postobstructive pneumonia: (2) Non-small cell cancer of right lung: (3) Weight loss: (4) Anemia: Plan This patient is an 84-year-old man with a right lower lobe lung mass which has been under workup since this summer who was admitted with postobstructive pneumonia. Initially thought to be possibly infectious and took 3 weeks of antibiotics but saw no improvement. PET/CT a month ago with increase in hypermetabolic activity of the right lower lobe mass and there was also a left ischial bony lesion and a pretracheal lymph node with increased uptake. He was scheduled for bronchoscopy and IR biopsy of the left ischial lesion the week of admission, but presented to the hospital and was admitted for postobstructive pneumonia. #Non-small cell lung cancer/postobstructive pneumonia: Presented with hemoptysis and failed treatment with [address] with cavitary lesion and had bronchoscopy with EBUS in 02/2025 with negative biopsy at that time. 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 Ischial bone mass biopsy inconclusive for cancer. He has completed a 7-day course of IV Zosyn for pneumonia and has improved from that standpoint. He has met with oncology as w ell as palliative medicine and has decided to focus on comfort and quality of life without pursuing chemotherapy for his cancer. He has lost 60 pounds from poor appetite he blames on previous antibiotic use. Appetite now improving with mirtazapine - No cancer related pain at this time - Continue mirtazapine 15 mg p.o. at bedtime - Plan to go to rehab for strengthening to return home, but eventually will need to enroll in hospice care to help him focus on quality of life and staying at home which is his goal - Will discontinue medications that provide no short-term benefit or comfort as his pill burden causes him nausea-discontinue atorvastatin, lactobacillus, hydroxyzine, guaifenesin - Zofran or Compazine as needed for nausea - Albuterol as needed for wheezing or cough #Dry mouth/oral pain-pt has frequent complaints of dry mouth, burning tongue. Hydroxyzine could worsen this but it helps his anxiety. No thrush noted -added magic mouthwash qid -Biotene spray for moisture -encourage fluids -changed diet texture to minced and moist #Hyponatremia-sodium low at 130 and is likely due to possible SIADH from lung cancer versus some hypovolemia from poor p.o. intake. Sodium stable on repeat check - No further lab draws needed #Leukocytosis/thrombocytosis/anemia-hemoglobin low but stable at 9.0, normocytic anemia. Leukocytosis and thrombocytosis are likely reactive to cancer and to anemia. Some of the leukocytosis may be due to infection as well which was treated with antibiotics. Leukocytosis and thrombocytosis somewhat improved. Iron studies consistent with anemia of chronic disease. B12/folate/TSH all normal -No need for further lab draws - Would not replace iron orally as this may make him more nauseated #Severe Protein calorie malnutrition - See RD consult, supplement, probiotics, and started remeron per psych - No need for PEG tube placement and family is in agreement with this #Hypertension-BPs are controlled -Continue atenolol and amlodipine #Hyperlipidemia- -discontinue atorvastatin to reduce pill burden and eventual transition to hospice #Anxiety/Panic/depression:Patient has been in a very low mood, feeling depressed. Appreciate psychiatry consultation. He is now improving with starting Remeron -Continue mirtazapine 15 mg p.o. at bedtime -continue hydroxyzine prn anxiety -consider ativan prn but might make him drowsy and unable to participate in rehab-could add once home on hospice DVT prophylaxis--enoxaparin Disposition: Discharge to [facility] for rehab for strengthening prior to returning home at which point he will focus on quality of life and comfort without pursuing treatment for cancer. [facility] has a bed for him- can take him herself on 06/10 Notes For Next Care Provider Medication Changes From Visit see med list Admission HPI Per Admitting Provider The patient is an 84-year-old male with a past medical history including right lower lobe lung mass, tricuspid regurgitation, mitral regurgitation, sinus bradycardia, seizure, ex smoker, JAYLAN, mild cognitive disorder, hypertension, dyslipidemia, BPH with LUTS, and chronic osteoarthritis. He presents to the emergency department with feelings of generalized weakness, fatigue, and shaking of upper extremities over the past few days. He continues to have a cough, which is overall more productive that has been. He is scheduled for a second lung bronchoscopic biopsy and a biopsy of left ischium lesion on 05/27. He has no other complaints. 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 Discharge Exam Constitutional WD/WN, vitals as above Respiratory normal respiratory effort Auscultation: + diminished lung sounds (Right greater than left lower lung gunderson) Cardiovascular RRR, no murmur, no edema Gastrointestinal (Abdomen) normal bowel sounds, soft, nontender, no hepatosplenomegaly Psychiatric Orientation: alert and oriented x 3 Affect: + irritable affect Discharge Plan Discharge Items Patient Disposition: Transfer Inpatient Rehab Fac Reason For Visit: POST- OBSTRUCTIVE PNEUMONIA Discharge Diagnosis: Postobstructive pneumonia Lung cancer Condition on Discharge: Fair Activity: As commented below Lifting: Gradually increase as tolerated Bathing: No limitations Exercise/Sports: Gradually increase as tolerated Non-emergency contact: Primary Care Provider Call non-emergency contact if: you have any medication questions and your symptoms worsen Follow-up/Referrals: Brady Romero, [Primary Care Provider] - (Follow-up within 2 weeks after discharge from rehab) Diet: Regular Diet Texture: Easy to Chew Addtl Attending Provider Instructions: You were admitted with pneumonia and had a biopsy of a lung mass which, unfortunately, proved to be lung cancer. You were treated with antibiotics for the pneumonia and started on a medication for anxiety and appetite stimulation called mirtazapine. You met with oncology and have decided not to pursue any chemotherapy for the cancer and to focus rather on improving comfort and quality of life. After you complete rehab, it would be beneficial for you to enroll in hospice at home to help you focus on comfort and quality of life. Some of your medications have been discontinued to reduce the number of pills that you have to take. It was a pleasure taking care of you! If you have any questions about your care before your hospital follow-up visit with your primary care provider, please call [phone] and ask to be transferred to the [facility] Medicine office. Sincerely, Nila Garcia M.D. Pending Studies at Discharge: Yes (FISH studies of lung biopsy) Stand-Alone Forms: My [facility] Skilled Items Patient informed of condition?: Yes DNR: Yes Discharge Level of Care: Acute rehab Communicable Disease: No Discharge Prognosis: Stable Lines: None Urinary Catheter: No Medications and DC Order Prescriptions: New hydroxyzine HCl 10 mg Tablet 10 mg PO Q6H PRN (Reason: anxiety) Qty: 30 0RF mirtazapine 15 mg Tablet 15 mg PO HS Qty: 30 0RF First - Mouthwash Blm [Magic Mouthwash] 5 ml PO QID Qty: 1 0RF Continued amlodipine 10 mg tablet 10 mg PO QAM Qty: 90 3RF atenolol 25 mg tablet 25 mg PO QAM Qty: 30 3RF omeprazole 20 mg capsule,delayed release(DR/EC) 40 mg PO DAILY Hold Instructions: While on cefuroxime Rx Instructions: Take 2 capsules by mouth once daily Discontinued atorvastatin 10 mg tablet 10 mg PO HS Qty: 90 3RF lactobacillus combination no.4 15 billion cell Capsule 15,000 mmu cells PO DAILY Patient Comments: Unable to verify OTC meds at this date/time. 02/17/25 Rx Instructions: administer with a meal Discharge Orders: Discharge Order (Routine); Ordered 06/10/25 Ordered By: Nila Garcia Admission Data Admit Date/Time: 05/26/25 00:22 Attending Provider: Nila Garcia Admit Provider: Patrice Sinclair Primary Care Provider: Brady Romero Other Providers: Patrice Sinclair; Kevin Moore; Margaret Shukla; Neri Landers; Jessica Smiley; Phuong Guidry; Xander Lenz; Simone Ridley; Princess Aguilar; Jeanie Bain; Susan Scott; [facility]; Ozzie,Kirk; [facility] Hospital Stay Data Consultations 05/25/25 23:30 ED Decision to Admit Stat 05/26/25 02:07 Consult Pulmonology Routine 05/30/25 09:04 Consult Psychiatry Routine 06/03/25 14:05 Consult Palliative Care Routine 06/08/25 10:24 Consult Oncology Routine Diagnostic Imagining Performed 05/26/25 00:12 CT chest diagnostic wo con Stat 05/26/25 08:44 IR biopsy bone deep CT Routine 05/29/25 08:30 IR biopsy lung RT CT Routine Pending Results Patient Have Any Pending Studies at Discharge: Yes (FISH studies of lung biopsy) Discharge Instructions Given to Patient (Per Discharging Provider) You were admitted with pneumonia and had a biopsy of a lung mass which, u nfortunately, proved to be lung cancer. You were treated with antibiotics for the pneumonia and started on a medication for anxiety and appetite stimulation called mirtazapine. You met with oncology and have decided not to pursue any chemotherapy for the cancer and to focus rather on improving comfort and quality of life. After you complete rehab, it would be beneficial for you to enroll in hospice at home to help you focus on comfort and quality of life. Some of your medications have been discontinued to reduce the number of pills that you have to take. It was a pleasure taking care of you! If you have any questions about your care before your hospital follow-up visit with your primary care provider, please call [phone] and ask to be transferred to the [facility] Medicine office. Sincerely, Nila Garcia M.D. Total Time Total Time Spent Total Time Spent (In Minutes): 35 min Total Time Includes: Examination of the Patient, Discharge Planning, Medication Reconciliation and Communication With Other Providers (Palliative Med) Coding Level of Care Code 57188 INP/OBS DISCH >30 MIN Diagnoses Postobstructive pneumonia J18.9 Non-small cell cancer of right lung C34.91 Weight loss R63.4 Anemia D64.9
[2025-06-10] MEDS: FIRST - Mouthwash BLM 5 ML UDP PO ONE (11:07)
[2025-06-10] MEDS: FIRST - Mouthwash BLM 5 ML UDP PO SCH (12:07)
== END 2025-06-10 14:04 | DRG 193 ==
LOC: ED 21:48 → 2W 05-26 00:22 → SUATTDRO 05-26 00:22 → 2W 05-26 01:41 → 3N 06-06 18:41
DX: E78.5 Hyperlipidemia, unspecified; C34.31 Malignant neoplasm of lower lobe, right bronchus or lung; N40.1 Benign prostatic hyperplasia with lower urinary tract symptoms; Z87.891 Personal history of nicotine dependence; Z88.0 Allergy status to penicillin; I08.1 Rheumatic disorders of both mitral and tricuspid valves; E22.2 Syndrome of inappropriate secretion of antidiuretic hormone; Z79.899 Other long term (current) drug therapy; E43 Unspecified severe protein-calorie malnutrition; G40.909 Epilepsy, unspecified, not intractable, without status epilepticus; F41.1 Generalized anxiety disorder; F43.23 Adjustment disorder with mixed anxiety and depressed mood; G89.3 Neoplasm related pain (acute) (chronic); G31.84 Mild cognitive impairment of uncertain or unknown etiology; Z51.5 Encounter for palliative care; K21.9 Gastro-esophageal reflux disease without esophagitis; I10 Essential (primary) hypertension; Z68.22 Body mass index [BMI] 22.0-22.9, adult; Z85.51 Personal history of malignant neoplasm of bladder; D64.9 Anemia, unspecified; J18.9 Pneumonia, unspecified organism